=== PATIENT | female | born 1940 | race Caucasian/White ===

== ENCOUNTER → 2023-10-02 14:03 | Outpatient (REF) | payer MEDICARE, SELFPAY | LOC: WDC 14:03 | PROVIDERS: ATTENDING PHYSICIAN Internal Medicine Geriatric Medicine | DX: Z12.31 Encounter for screening mammogram for malignant neoplasm of breast (principal); R92.8 Other abnormal and inconclusive findings on diagnostic imaging of breast | CPT/HCPCS: 76642; 77063; 77067 ==

== ENCOUNTER → 2023-10-22 11:15 | Outpatient (REF) | payer OTHER, SELFPAY ==
[2023-10-22 15:50] LABS: ALT (SGPT) 25 U/L (0-35); AST (SGOT) 30 U/L (14-36); Albumin 3.7 g/dl (3.5-5.0); Alkaline Phosphatase 78 U/L (38-126); Total Bilirubin 0.6 mg/dl (0.2-1.3); Total Protein 6.4 g/dl (6.3-8.2)
== END ==
LOC: HWRAD 11:15
PROVIDERS: ATTENDING PHYSICIAN Internal Medicine Critical Care Medicine; FAMILY PHYSICIAN Internal Medicine Geriatric Medicine
DX: R91.1 Solitary pulmonary nodule (principal)
CPT/HCPCS: 36415; 71250; 80076

== ENCOUNTER → 2023-11-05 09:46 | Outpatient (REF) | payer OTHER, SELFPAY ==
[2023-11-05 13:43] LABS: Blood Urea Nitrogen 14 mg/dl (7-17); Calcium 9.3 mg/dl (8.4-10.2); Carbon Dioxide 29 mmol/L (22-30); Chloride 106 mmol/L (98-107); Glucose 88 mg/dl (70-99); Potassium 4.1 mmol/L (3.5-5.1); Sodium 139 mmol/L (135-145); eGFR > 60.00
== END ==
LOC: HWLAB 09:46
PROVIDERS: ATTENDING PHYSICIAN Internal Medicine; FAMILY PHYSICIAN Internal Medicine Geriatric Medicine
DX: R19.5 Other fecal abnormalities (principal); R19.04 Left lower quadrant abdominal swelling, mass and lump
CPT/HCPCS: 36415; 80048

== ENCOUNTER → 2023-11-19 11:18 | Outpatient (REF) | payer OTHER, SELFPAY | LOC: HWRAD 11:18 | PROVIDERS: ATTENDING PHYSICIAN Internal Medicine; FAMILY PHYSICIAN Internal Medicine Geriatric Medicine | DX: R19.5 Other fecal abnormalities (principal) | CPT/HCPCS: 74177; Q9967 ==

== ENCOUNTER → 2024-03-13 13:48 | Outpatient (REF) | payer MEDICARE, SELFPAY | LOC: WDC 13:48 | PROVIDERS: ATTENDING PHYSICIAN Internal Medicine Geriatric Medicine | DX: R92.8 Other abnormal and inconclusive findings on diagnostic imaging of breast (principal) | CPT/HCPCS: 76642 ==

== ENCOUNTER → 2024-04-21 12:55 | Outpatient (REF) | payer OTHER, SELFPAY | LOC: HWRCS 12:55 | PROVIDERS: ATTENDING PHYSICIAN Internal Medicine Geriatric Medicine | DX: I35.0 Nonrheumatic aortic (valve) stenosis (principal) | CPT/HCPCS: 93306 ==

== ENCOUNTER → 2024-10-17 14:51 | Outpatient (REF) | payer MEDICARE, SELFPAY | LOC: WDC 14:51 | PROVIDERS: ATTENDING PHYSICIAN Internal Medicine | DX: Z12.31 Encounter for screening mammogram for malignant neoplasm of breast (principal) | CPT/HCPCS: 77063; 77067 ==

== ENCOUNTER → 2025-02-22 06:53 | Outpatient (REF) | payer MEDICARE, SELFPAY | LOC: PAVMRI 06:53 | PROVIDERS: ATTENDING PHYSICIAN Internal Medicine Rheumatology; FAMILY PHYSICIAN Internal Medicine | DX: M54.16 Radiculopathy, lumbar region (principal); M54.50 Low back pain, unspecified | CPT/HCPCS: 72148 ==

== ENCOUNTER 2025-04-08 06:21 | Day surgery (SDC) | payer MEDICARE, SELFPAY | END 2025-04-08 09:27 | disposition home or self-care (01) | LOC: GI 06:21 | PROVIDERS: ATTENDING PHYSICIAN Surgery | DX: K57.30 Diverticulosis of large intestine without perforation or abscess without bleeding (principal); K56.699 Other intestinal obstruction unspecified as to partial versus complete obstruction; R93.3 Abnormal findings on diagnostic imaging of other parts of digestive tract | CPT/HCPCS: 45378 ==

== ENCOUNTER 2025-04-09 19:26 | Inpatient (IN) | payer OTHER, SELFPAY ==
[2025-04-09] VITALS (7 sets, daily range): BP systolic 132–168; BP diastolic 55–93; BMI 24.0
[2025-04-09] MEDS: NSS 1000 IV ×2 (15:29→19:09)
[2025-04-09] MEDS: IMODIUM 2 MG PO (15:34)
[2025-04-09 15:50] LABS: Hematocrit 38.1 % (37.0-47.0); Hemoglobin 12.6 g/dL (12.0-16.0); Mean Corp Hgb Conc. 33.1 g/dL (33.0-37.0); Mean Corpuscular Volume 87.0 fL (81.0-99.0); Nucleated Red Blood Cells % 0 %; Platelet Count 167 10^3/uL (130-400); Red Cell Dist. Width 14.1 % (11.5-14.5)
--- NOTE | 2025-04-09 15:55 | ED.GENMED ---
History of Present Illness
General
Chief Complaint: Abdominal Symptoms
Source: patient, records, physician and previous hospital records
Exam Limitations: none
Time Seen by Provider: 04/09/25 15:04
Nursing documentation reviewed up to this point in time: agreed with
History of Present Illness
History of Present Illness:
84-year-old female presents with crampy abdominal pain and diarrhea she underwent a colonoscopy yesterday by Dr. Lares apparently she had an MRI of her back that showed an abnormality in her colon--- since this study she has had crampy pain with
diarrhea not eating and drinking much, no fevers no blood, in discussing the case with Dr. Lares no biopsies were taken he was not able to pass the lesion, even with a smaller scope, he requested a CAT scan with IV contrast labs and EKG
Past History
Past History
ED Past Medical History: HTN, Hypercholesterolemia and Other (L Breast CA)
Social History
Tobacco: Former smoker
Living: alone
Employment: Retired
Review of Systems
Review of Systems
All Other Systems: Not applicable
Constitutional: Denies fever or fatigue
EENT: Reports no symptoms
Respiratory: Reports no symptoms
Cardiac: Denies chest pain
ABD/GI: Reports abdominal pain, nausea and diarrhea; Denies vomiting, bloody stools or black stools
: Reports no symptoms
Musculoskeletal: Reports no symptoms
Skin: Reports no symptoms
Phy Exam
Physical Exam
Physical Exam:
Physical Exam
General: no apparent distress, not acutely ill
Neck: Dry lips
Heart: s1/s2 regular rate and rhythm, no murmur. equal radial pulses.
Lungs: no acute respiratory distress. clear bilaterally
Abdomen: Soft nontender
Neuro: alert and oriented. no focal neurological deficits
Skin: no rash
Psychiatric: well kept. interactive and cooperative
Extremities: no edema.
Course
Orders/Labs/Results
Orders:
Orders
04/09/25 15:19
0.9% Sodium Chloride 1000 ml [Nss] 1,000 ml IV BOLUS
Loperamide [Imodium] 2 mg PO NOW STA
04/09/25 15:28
Complete Blood Count/With Diff Urgent
Comprehensive Metabolic Panel Urgent
Magnesium Urgent
04/09/25 15:36
Electrocardiogram (*1) Urgent
Reason for Study: Abdominal Pain
EKG- Treatment ONCE
04/09/25 15:37
CT Abd/pelvis W Iv Cont Urgent
Comment:
Reason For Exam: pain mass/stricture on scope
04/09/25 16:41
Troponin I Urgent
04/09/25 18:01
Norovirus by PCR Urgent
JAZZMINE Source: Feces/Stool
Specimen Description:
STOOL [C difficile Antigen & Toxins] Urgent
JAZZMINE Source: Feces/Stool
Specimen Description:
Stool Culture Urgent
JAZZMINE Source: Feces/Stool
Specimen Description:
Abnormal Lab Results
04/09/25
15:28
Absolute Neuts (auto) 7.9 H 10^3/uL
(1.4-6.5)
Absolute Lymphs (auto) 1.0 L 10^3/uL
(1.2-3.4)
Neutrophils % 82.8 H %
(42.2-75.2)
Lymphocytes % 10.3 L %
(20.5-51.1)
Potassium 3.4 L mmol/L
(3.5-5.1)
BUN 27 H mg/dl
(7-17)
Total Protein 6.2 L g/dl
(6.3-8.2)
04/09/25 15:28
04/09/25 15:28
Vital Signs
Initial and Last Documented VS:
Initial Vital Signs
Temp Pulse Resp BP Pulse Ox
98.5 F 91 16 132/82 97
04/09/25 14:45 04/09/25 14:45 04/09/25 14:45 04/09/25 14:45 04/09/25 14:45
Last Documented Vital Signs
Temp Pulse Resp BP Pulse Ox
98.5 F 87 18 135/55 95
04/09/25 14:45 04/09/25 16:45 04/09/25 18:09 04/09/25 16:17 04/09/25 16:18
MDM/Problems Addressed
Differential Diagnosis Includes:
Dehydration postprocedural pain his symptoms related to the procedure
MDM/Problems Addressed:
Diarrhea cramps
Chronic conditions affecting care:
Stricture
Acute Exacerbation and/or Progression of Chronic Illness:
Stricture
*Radiology
Radiology exam reviewed: radiology read reviewed
*Pulse Oximetry
SaO2: 97
Oxygen Mode of Delivery: Room air
Patient hypoxic: no
*Critical Care Note
Total Time (30-74mins, 75-104mins- exclusive of procedures): Not Applicable
Update Note
Update Note:
6 PM, update CT noted labs noted patient still with some minimal pain has not tolerated a diet since her procedure reviewed with patient surgery, shared decision making we will keep her in the hospital hydration serial exams advance her diet
ED Attending Note
-
Portions of this chart may have been created with voice recognition software.� Occasional wrong word or��sound alike� substitutions may have occurred due to the inherent limitations of voice recognition software.
Discharge Plan
Departure
Patient Disposition: Admit
Date of Disposition: 04/09/25
Time of Disposition: 18:11
Admit to: Med/Surg
Presentation/result/management discussed w/ accepting MD/DO: Hospitalist
Patient with high blood pressure during this ER visit?: No
Condition: Good
Discharge Problem:
Dehydration
Prescriptions:
No Action
Albuterol Nebs
1 vial IH DAILY
azelastine 1 SPRAY aerosol,spray
2 spray intranasal DAILY
Patient Comments:
after nasal rinse
albuterol sulfate 1 PUFF HFA aerosol inhaler
2 puff inhalation PRN PRN (Reason: sob)
fluticasone propionate 1 SPRAY spray,suspension
2 spray intranasal DAILY
Patient Comments:
after nasal rinse
beclomethasone dipropionate [Qvar] 8.7 GM aerosol
2 puff IH BID
fenofibrate nanocrystallized 145 MG tablet
145 mg PO DAILY
amlodipine-valsartan [Exforge] 1 EACH tablet
1 tab PO DAILY
Patient Comments:
10mg/320mg
sod [id number] bottle [Neilmed Sinus Rinse Complete] 1 EACH packet with rinse device
1 pkg inhalation .DAILY AT 1600
Zyrtec:
1 tab PO PRN PRN (Reason: ALLERGY)
famotidine [Pepcid AC] 10 MG tablet
10 mg PO QPM
magnesium oxide 500 MG tablet
500 mg PO QPM
letrozole 2.5 MG tablet
2.5 mg PO QPM
cholecalciferol (vitamin D3) [Vitamin D3] 1,000 UNIT capsule
1,000 unit PO DAILY
Patient Comments:
with calcium
Levothyroxine
0.1 mg PO DAILY
ketoconazole 1 APPLIC cream
topical BID
Patient Comments:
under abdominal fold
Probiotic (Align)
DAILY
acetaminophen 325 MG tablet
650 mg PO Q4HPRN PRN (Reason: pain) Qty: 0 0RF
aspirin 325 MG tablet,delayed release (DR/EC)
325 mg PO DAILY Qty: 0 0RF
docusate sodium 100 MG capsule
100 mg PO BID Qty: 0 0RF
oxycodone 5 MG tablet
5 mg PO Q4HPRN PRN (Reason: moderare to severe pain) Qty: 60 0RF
Rx Instructions:
1 to 2 tabs every 4 hrs as needed
Referrals:
Mallory Medeiros DO [Family Provider, Internal Medicine]
Interventions
Interventions:
*Risk Screen - Suicide Last Done: 04/09/25 14:46
*Neglect/Abuse Screening Last Done: 04/09/25 14:46
*ED- Fall Risk Assessment Last Done: 04/09/25 15:55
*ED COVID-19 Vaccine History Last Done: 04/09/25 18:09
AG-Bzuldc-Jmwgtikugv Assessment Last Done: 04/09/25 15:50
Discharge Date and Time
Print Language: FRENCH
[2025-04-09 16:02] LABS: ALT (SGPT) 27 U/L (0-35); AST (SGOT) 25 U/L (14-36); Albumin 3.9 g/dl (3.5-5.0); Alkaline Phosphatase 73 U/L (38-126); Blood Urea Nitrogen 27 mg/dl (7-17); Calcium 8.5 mg/dl (8.4-10.2); Carbon Dioxide 24 mmol/L (22-30); Chloride 106 mmol/L (98-107); Glucose 94 mg/dl (70-99); Magnesium 2.0 mg/dl (1.6-2.3); Potassium 3.4 mmol/L (3.5-5.1); Sodium 137 mmol/L (135-145); Total Protein 6.2 g/dl (6.3-8.2); eGFR > 60.00
[2025-04-09 17:14] LABS: Troponin I < 0.012 ng/ml
--- NOTE | 2025-04-09 18:10 | HPS.HSE ---
Family Physician
-
Family Physician: Mallory Medeiros
Chief Complaint
-
Diarrhea post colonoscopy
History of Present Illness
84-year-old female sent by Dr. Lares sent for abdominal cramping with diarrhea since yesterday after undergoing a colonoscopy for abnormality on MRI in her colon. On colonoscopy she was noted to have severe stenosis unknown length found in the
sigmoid colon at 30 cm from the verge colorectal was unable to pass the scope through to obtain biopsy. She also had moderate stool in the rectosigmoid colon on colonoscopy yesterday 04/08/2025. She denies fever, chills, chest pain, palpitations,
cough, shortness of breath, abdominal pain, nausea, vomiting, urinary symptoms.
She has past medical history osteoarthritis, hypothyroidism,, HTN, Diverticulitis Hx, osteoarthritis on chronic oral opiates, Osteoporosis, Spondylosis lumbar sacral spine
COPD on chronic 2 L nasal cannula at night and with walking, Idiopathic pulmonary fibrosis, Mild cognitive impairment, Nonrheumatic aortic valve stenosis
Depression, Balance disorder, Chronic bilateral lower extremity edema, GERD HLD, History of left-sided breast cancer 2022 was on former letrozole, Overactive bladder
Medical History
Past Medical History
Past Medical History: Reports Other
Additional Past Medical History:
Diverticulitis Hx
osteoarthritis on chronic oral opiates
Osteoporosis
Spondylosis lumbar sacral spine
hypothyroidism
HTN
COPD on chronic 2 L nasal cannula
Idiopathic pulmonary fibrosis
Mild cognitive impairment
Nonrheumatic aortic valve stenosis
Depression
Balance disorder
Chronic bilateral lower extremity edema
GERD
HLD
History of left-sided breast cancer 2022 was on former letrozole
Overactive bladder
Past Surgical History: Reports Other
Additional Past Surgical History:
Cholecystectomy
Hysterectomy
Carpal tunnel repair
Cataract extraction bilateral
tonsillectomy
Left total hip replacement 03/25/2015
Social History
Tobacco: Former Smoker (Quit age 33)
Alcohol: None
Drug: None
Personal: Single
Living: Alone
Employment: Retired
Family History
Family History: Not pertinent
Allergies / Home Medications
Allergies reflects when Allergies were last updated in [employer].
Home Medications with original date entered in [employer]
Allergy/Medication List:
Allergies
Allergy/AdvReac Type Severity Reaction Status Date / Time
gage Allergy ROSES-Seasonal' Verified 04/09/25 18:49
watery
eyes,sore
throat,
sneezing ,
itching.
grass pollen Allergy Seasonal' Verified 04/09/25 18:49
watery
eyes,sore
throat,
sneezing ,
itching.
house dust Allergy Seasonal' Verified 04/09/25 18:49
watery
eyes,sore
throat,
sneezing ,
itching.
mold Allergy Seasonal' Verified 04/09/25 18:49
watery
eyes,sore
throat,
sneezing ,
itching.
tree and shrub pollen Allergy Seasonal' Verified 04/09/25 18:49
watery
eyes,sore
throat,
sneezing ,
itching.
Home Medications
Zyrtec: 10 mg PO DAILY AT 0700 11/23/14
albuterol sulfate 90 mcg/actuation aerosol inhaler 2 puff inhalation PRN PRN sob 11/23/14
amlodipine 10 mg-valsartan 320 mg tablet (Exforge) 1 tab PO DAILY 11/23/14
fluticasone propionate 50 mcg/actuation nasal spray,suspension 2 spray intranasal DAILY 11/23/14
cholecalciferol (vitamin D3) 25 mcg (1,000 unit) capsule (Vitamin D3) 1,000 unit PO DAILY 02/24/15
acetaminophen 325 mg tablet 650 mg (2 x 325 mg) PO Q4HPRN PRN pain ##0 03/28/15
Advair Diskus 1 inh inhalation BID AT 0800,1600 04/09/25
levothyroxine 100 mcg tablet 100 mcg PO DAILY 04/09/25
oxycodone 5 mg tablet 5 mg PO BIDPRN PRN mod pain 04/09/25
Review of Systems
-
History Source: Patient
A 12 point ROS was completed and negative except as noted: Yes
Constitutional: Denies Fever or Fatigue
EENT: Denies Sore Throat or Runny Nose
Respiratory: Denies Cough or Trouble Breathing
Cardiac: Denies Chest Pain, Diaphoresis, Palpitations or Syncope
Abdomen/GI: Reports Diarrhea and Other (Decreased appetite); Denies Abdominal Pain, Nausea or Vomiting
: Denies Dysuria, Frequency, Flank Pain, Incontinence or Difficulty Voiding
Musculoskeletal: Denies Joint Pain or Edema
Skin: Denies Itching or Rash
Neurological: Denies Dizzy, Headache or Weakness
Endocrine: Reports No Symptoms
Hematologic/Lymphatic: Reports No Symptoms
Psych: Reports Calm
Physical Exam
Vital Signs
Vital Signs
Temp Pulse Resp BP Pulse Ox
98.5 F 87 18 135/55 95
04/09/25 14:45 04/09/25 16:45 04/09/25 18:09 04/09/25 16:17 04/09/25 16:18
Physical Exam
General: No Apparent Distress, Comfortable and Conversant; No Fever or Chills
HEENT: NormoCephalic, Anicteric, Moist mucous membranes, PERRLA, [place] Conjunctivae and No Ptosis
Respiratory: Clear; No Wheezes, Rales or Rhonchi
Cardiac: S1/S2, Regular Rhythm and Murmur (2/6 systolic); No Rub or Gallop
Breast: Deferred by me
GI: Soft, Non Tender, Non Distended and Normal Bowel Sounds
Rectal: Deferred by Provider
Genito-urinary: Deferred by me
Musculoskeletal: No Clubbing, No Cyanosis and No Edema
Skin: Warm and Dry; No Rash
Neuro: AO x 3 (Slightly forgetful short-term memory), No Motor Deficits, Nonfocal/grossly intact, Cranial Nerves Intact and No Sensory Deficits; No Slurred Speech, Facial Droop, Tremors or Sedated
Psych: Calm
Laboratory Results
-
04/09/25 15:28
04/09/25 15:28
Laboratory Results
Total Bilirubin 0.8 mg/dl (0.2-1.3) 04/09/25 15:28
AST 25 U/L (14-36) 04/09/25 15:28
ALT 27 U/L (0-35) 04/09/25 15:28
Alkaline Phosphatase 73 U/L (38-126) 04/09/25 15:28
Troponin I < 0.012 ng/ml 04/09/25 16:41
Data Reviewed
-
CT Scan: Report Reviewed by me
Lab Data: Labs Reviewed by me
Impression/Plan
-
Impression/plan:
Admit to MedSurg
#Acute diarrheal illness with volume depletion likely secondary to Sigmoid colon stricture causing SBO
#Severe stenosis sigmoid colon on colonoscopy yesterday 04/08/2025
#Moderate stool rectosigmoid colon on colonoscopy yesterday 04/08/2025
- Clear liquids tonight
- N.p.o. after midnight for possible OR sigmoid resection in a.m.
- Consult Dr. Lares
-Check stool studies
- IV NSS 60 cc an hour
Colonoscopy 04/08/2025:
- The perianal and digital rectal examinations were normal.
- A moderate amount of stool was found in the recto-sigmoid colon
at a site of previous tattooing, interfering with visualization.
- Scattered small-mouthed diverticula were found in the sigmoid
colon.
- A benign-appearing, intrinsic severe stenosis measuring of unknown
length was found in the sigmoid colon at 30 cm from verge and was
non-traversed.
CT abdomen pelvis with IV contrast:
1. wall thickening involving the proximal sigmoid colon which may be related to reported mass/stricture.
2. There is fluid present throughout the colon as well as mild distention of the cecum/ascending colon.
Findings may represent an element of diarrheal illness/malabsorption although partial distal small bowel obstruction related to the
above-described sigmoid colon abnormality is possible.
#Acute hypokalemia secondary to diarrheal losses
K 3.4
Will give K rider 20 mEq
Follow BMP
#Diverticulitis Hx
Osteoarthritis on chronic Oral opiates
-Continue oxycodone 5 mg twice daily
#Osteoporosis
Spondylosis lumbar sacral spine
-Patient is on Prolia every 6 months
-Continue vitamin D
#Hypothyroidism
-Continue levothyroxine 100 mcg daily
# HTN
166/
Continue amlodipine 10 mg daily, valsartan 320 mg daily with hold parameters
#COPD on chronic 2 L nasal cannula at bedtime and with ambulation
#Former smoker quit age 33
#Idiopathic pulmonary fibrosis
-Continue inhalers, continue Singulair
#Chronic mild cognitive impairment
Oriented to name, place, president, history is somewhat forgetful short-term
#Nonrheumatic aortic valve stenosis
#Depression
No reported meds
#Balance disorder
#Chronic bilateral lower extremity edema
#GERD
- Reported meds
#HLD
- No current meds
#History of left-sided breast cancer 2022 was on former letrozole
#Overactive bladder
DVT prophylaxis
SCDs
Full code
--- NOTE | 2025-04-09 18:46 | W.PN.UPDATE ---
Update Note
Progress Note Update
This is an addendum to the H&P written by Keke Stanford on 04/09/2025. �Patient seen and examined independently with CHIEF OPHTHALMIC TECHNICIAN.
84-year-old female past medical history of idiopathic pulmonary fibrosis, COPD on 2L with ambulation/night, hypertension, hypothyroidism, osteopenia, breast cancer postlumpectomy, osteoarthritis, presenting with crampy abdominal pain and diarrhea
after colonoscopy yesterday. �She underwent colonoscopy yesterday by Dr. Lares. �Patient had severe stenosis/stricture in the sigmoid colon which could not be transversed.
Vital signs normal.
Labs unremarkable apart from potassium 3.4.�
CT abdomen pelvis shows apparent wall thickening involving the proximal sigmoid colon which may be related to reported mass/stricture. �There is fluid present throughout the colon as well as mild distention of the cecum/ascending colon. �Findings
represent element of diarrheal illness/malabsorption although marginal distal small bowel obstruction related to the above sigmoid colon abnormalities is possible.
Patient with diarrhea after colonoscopy yesterday likely secondary to bowel prep given for colonoscopy. �Concern for underlying sigmoid colon stricture noted on colonoscopy yesterday as well as on CAT scan today. �Clear liquids, n.p.o. pastmidnight,
IV fluids, check stool studies. �Colorectal surgery consulted for consideration of possible sigmoid resection.
Hypokalemia secondary to diarrhea. Replete potassium.�
[2025-04-09] MEDS: KCL 160 MEQ IV (19:09)
[2025-04-10] VITALS (10 sets, daily range): BP systolic 132–165; BP diastolic 60–76; PULSE 88; O2SAT 97
[2025-04-10] MEDS: ZYRTEC 10 MG PO (06:11)
[2025-04-10] MEDS: SYNTHROID 100 MCG PO (06:11)
[2025-04-10] MEDS: NON-FORMULARY ITEM 1 UNIT INH (08:07)
--- NOTE | 2025-04-10 08:11 | PTCARENOTE ---
Pt arrived to unit from ED on stretcher at 2124. Pt ambulated to bathroom without assist and then to bed-gait steady. Pt reports using 2L NC for ambulation and HS d/t COPD & ILD-patient placed on 2L. Pt reports using cane & RW at baseline for long
distances, does not use devices in room. Pt AAOx3. Patient has a living will & wishes to be DNR, living will not in [employer] record & does not have family who can bring it in, pt advised to speak with physician to clarify wishes. Pt having loose &
watery [id number] on enhanced precautions, unable to obtain specimen overnight due to contamination. Pt reported pain in abdomen upon arrival, reported pain '3 out of 10'; declined analgesia at that time, continues to decline analgesia. Call
wright within reach, bed in lowest position and locked, pt states no further needs at this time.
[2025-04-10] MEDS: VITAMIN D3 (cholecalciferol) 25 MCG PO (08:22)
[2025-04-10] MEDS: DIOVAN PO (08:23)
[2025-04-10] MEDS: NON-FORMULARY ITEM 1 UNIT PO (08:23)
[2025-04-10] MEDS: NORVASC PO (08:23)
[2025-04-10 08:55] LABS: ALT (SGPT) 24 U/L (0-35); AST (SGOT) 25 U/L (14-36); Albumin 3.8 g/dl (3.5-5.0); Alkaline Phosphatase 77 U/L (38-126); Blood Urea Nitrogen 17 mg/dl (7-17); Calcium 7.8 mg/dl (8.4-10.2); Carbon Dioxide 23 mmol/L (22-30); Chloride 108 mmol/L (98-107); Estimated Creatinine Clearance 58 ml/min; Glucose 61 mg/dl (70-99); Potassium 3.3 mmol/L (3.5-5.1); Sodium 139 mmol/L (135-145); Total Protein 6.2 g/dl (6.3-8.2); eGFR > 60.00
--- NOTE | 2025-04-10 09:05 | CON.CRS ---
Consultation
-
Date/Time Consultation Requested: 04/09/2025, 18:43
Date/Time Consultation Performed: 04/10/2025, 08:25
Requesting Provider: Keke Stanford
Performing Provider: Amos Lares MD
Reason for Consultation: loose stools/cramping
Medical History
-
Chief Complaint: diarrhea/cramping
History of Present Illness:
84 yo female, with a history of pulmonary fibrosis, presents to the ER s/p colonoscopy by Dr. Lares on 04/08/25 with abdominal pain and diarrhea. The patient originally had an abnormal finding on an outpatient MRI which showed a 4.8cm thickening of
the colon. She apparently has had bowel issues over the years and has to massage her abdomen to have a bowel movement. The colonoscopy on 04/08 showed preparation of the colon was poor. Stool in the recto-sigmoid colon. Diverticulosis in the sigmoid
colon There was severe stenosis unknown length found in the sigmoid colon at 30 cm from the verge colorectal was unable to pass the scope through to obtain biopsy.. Stricture in the sigmoid colon. No specimens collected. After the colonoscopy, the
patient developed worsening abdominal cramping and loose stools. She was sent to the ER by Dr. Lares yesterday given these symptoms. CT A/P shows apparent wall thickening involving the proximal sigmoid colon which may be related to reported
mass/stricture. There is fluid present throughout the colon as well as mild distention of the cecum/ascending colon. Findings may represent an element of diarrheal illness/malabsorption although partial distal small bowel obstruction related to the
above-described sigmoid colon abnormality is possible. Given these findings, we have been consulted for surgical opinion.
Past Medical History
Past Medical History: Cancer (breast ca history), GERD, HTN, Hypercholesterolemia, Hypothyroidism and Other (Diverticulitis, osteoarthritis, osteoporosis, Idiopathic pulmonary fibrosis, Mild cognitive impairment, Nonrheumatic aortic valve stenosis,
Overactive bladder)
Past Surgical History: Cholecystectomy, Gynecological (hysterectomy) and Other (Carpal tunnel repair, Cataract extraction, bilateral tonsillectomy, Left total hip replacement 03/25/2015)
Social History
Tobacco: Former Smoker
Alcohol: None
Drug: None
Personal: Single
Living: Alone
Family History
Family History: Reviewed & Not Pertinent
Allergies / Home Medications
Allergy/AdvReac Type Severity Reaction Status Date / Time
gage Allergy ROSES-Seasonal' Verified 04/09/25 18:49
watery
eyes,sore
throat,
sneezing ,
itching.
grass pollen Allergy Seasonal' Verified 04/09/25 18:49
watery
eyes,sore
throat,
sneezing ,
itching.
house dust Allergy Seasonal' Verified 04/09/25 18:49
watery
eyes,sore
throat,
sneezing ,
itching.
mold Allergy Seasonal' Verified 04/09/25 18:49
watery
eyes,sore
throat,
sneezing ,
itching.
tree and shrub pollen Allergy Seasonal' Verified 04/09/25 18:49
watery
eyes,sore
throat,
sneezing ,
itching.
�Medication �Instructions �Recorded �Confirmed �Type
Zyrtec: 10 mg PO DAILY AT 0700 11/23/14 03/25/15 History
albuterol sulfate 90 mcg/actuation 2 puff inhalation PRN PRN sob 11/23/14 04/09/25 History
aerosol inhaler
amlodipine 10 mg-valsartan 320 mg 1 tab PO DAILY 11/23/14 04/09/25 History
tablet (Exforge)
fluticasone propionate 50 2 spray intranasal DAILY 11/23/14 04/09/25 History
mcg/actuation nasal
spray,suspension
cholecalciferol (vitamin D3) 25 1,000 unit PO DAILY 02/24/15 04/09/25 History
mcg (1,000 unit) capsule (Vitamin
D3)
acetaminophen 325 mg tablet 650 mg (2 x 325 mg) PO Q4HPRN PRN 03/28/15 04/09/25 Rx
pain ##0
Advair Diskus 1 inh inhalation BID AT 0800,1600 04/09/25 04/09/25 History
levothyroxine 100 mcg tablet 100 mcg PO DAILY 04/09/25 04/09/25 History
oxycodone 5 mg tablet 5 mg PO BIDPRN PRN mod pain 04/09/25 04/09/25 History
Review of Systems
-
History Source: Patient
Abdomen/GI: Abdominal Pain and Diarrhea
A 10 point review of systems was completed, and was negative except as per HPI.
Physical Exam
Vital Signs
Temp 97.7 F 04/10/25 07:00
Pulse 52 04/10/25 07:00
Resp Rate 16 04/10/25 08:12
Blood pressure 132/70 04/10/25 07:00
SaO2 100 04/10/25 08:12
04/09/25 04/10/25 04/11/25
06:59 06:59 06:59
Actual Weight 63.458 kg
Body Mass Index (BMI) 24.0
Lab Results / Allergies
04/10/25 07:15
WBC 9.5 10^3/uL (4.8-10.8) 04/09/25 15:28
Hgb 12.6 g/dL (12.0-16.0) 04/09/25 15:28
Hct 38.1 % (37.0-47.0) 04/09/25 15:28
Plt Count 167 10^3/uL (130-400) 04/09/25 15:28
Abs Immat Gran (auto) 0.0 10^3/uL (0-0.05) 04/09/25 15:28
Neutrophils % 82.8 % (42.2-75.2) H 04/09/25 15:28
Allergy/AdvReac Type Severity Reaction Status Date / Time
gage Allergy ROSES-Seasonal' Verified 04/09/25 18:49
watery
eyes,sore
throat,
sneezing ,
itching.
grass pollen Allergy Seasonal' Verified 04/09/25 18:49
watery
eyes,sore
throat,
sneezing ,
itching.
house dust Allergy Seasonal' Verified 04/09/25 18:49
watery
eyes,sore
throat,
sneezing ,
itching.
mold Allergy Seasonal' Verified 04/09/25 18:49
watery
eyes,sore
throat,
sneezing ,
itching.
tree and shrub pollen Allergy Seasonal' Verified 04/09/25 18:49
watery
eyes,sore
throat,
sneezing ,
itching.
Physical Exam
General: Well Developed, Well Nourished and No Apparent Distress
GI: Soft and Tender (RLQ mild/mod)
Skin: Warm and Dry
Neuro: AO x 3
Psych: Calm
Data Reviewed
-
CT Scan: Image Personally Visualized and interpreted, Report Reviewed by me and Discussed with Patient
Labs: Labs Reviewed by me, Discussed with Physician and Discussed with Patient
Old Records: Reviewed
Assessment / Plan
-
Assessment: 84 yo female with worsening abdominal cramping/diarrhea post colonoscopy on 04/08, found to have a sigmoid stricture on CT with cecal distention
Plan:
-OR today for sigmoidectomy with possible stoma creation
-Stoma RN for marking
-Remain NPO with IVFs
-Pre-op labs and medications ordered
-TEDS/SCDS in place
-Dr. Lares discussed above with her family friend, Ms. Garcia. They will bring in her living will.
[2025-04-10 09:24] LABS: Hematocrit 42.4 % (37.0-47.0); Hemoglobin 13.7 g/dL (12.0-16.0); Mean Corp Hgb Conc. 32.3 g/dL (33.0-37.0); Mean Corpuscular Volume 87.8 fL (81.0-99.0); Nucleated Red Blood Cells % 0 %; Platelet Count 205 10^3/uL (130-400); Red Cell Dist. Width 13.9 % (11.5-14.5)
--- NOTE | 2025-04-10 09:37 | WOUNDNOTE ---
[facility] RN NOTE: Patient visited for stoma siting. Chart reviewed. The rectus abdominal muscle was located and care was taken to avoid creases and folds. Patient has many folds and patient and colorectal team made aware that pouching issues may occur
due to body habitus. Also made team aware to avoid umbilical line if placing stoma. Patient ambulatory and is on a [employer] Max Air. Air cushion added to chair and barrier ointment applied to areas of MASD in gluteal sulcus. Heels are intact.
Patient asked many appropriate questions and all questions were answered. Will continue to follow and will follow up with stoma care and teaching if stoma is placed. LYNNE Cuellar updated.
[2025-04-10 09:48] LABS: INR 1.20; PT 15.5 Sec (11.4-14.6)
[2025-04-10 09:49] LABS: APTT 30.8 Sec (23.4-35.0)
[2025-04-10] MEDS: CALCIUM GLUCONATE 100 IV (11:02)
[2025-04-10] MEDS: NSS 1000 IV (11:06)
[2025-04-10] MEDS: KCL 270 MEQ IV (12:20)
[2025-04-10] MEDS: TYLENOL 1000 MG PO (13:26)
[2025-04-10] MEDS: NEURONTIN 600 MG PO (13:26)
[2025-04-10] MEDS: HEPARIN 5000 UNITS SC (13:27)
--- NOTE | 2025-04-10 14:03 | CM ---
CM following re: discharge planning.
Reviewed pt's chart, met with pt.
Pt is a 88 year old female, admitted with primary dx of POD#1 post op from laparoscopic hand assist L nephroureterectomy with transurethral bladder cuff excision.
Pt reports she lives alone in an independent apartment at [facility], has been living there for 15 years. Pt reports she has no family around, no children, has supportive friends. Pt reports she uses a Rollator, has home Oxygen and requires
2L NC at baseline. No VN or SNF history.
Pt expressed her desire to return back to her apartment with friends support. pt stated her friend will transport home.
PCP: Ruddy Hopkins
Pharmaco: [facility]
D/C plan: return back to [facility] with friends support.
CM will follow with discharge plan updates as hospitalization progresses.
--- NOTE | 2025-04-10 14:03 | W.PN.HOSP.TC ---
Today's Communication/Plan
-
see a/p
Assessment / Plan
Assessment / Plan
Physical Exam
General: No Apparent Distress, Comfortable and Conversant; No Fever or Chills
HEENT: NormoCephalic, Anicteric, Moist mucous membranes, PERRLA, Guadalupe Guerra Conjunctivae and No Ptosis
Respiratory: Clear; No Wheezes, Rales or Rhonchi
Cardiac: S1/S2, Regular Rhythm and Murmur (2/6 systolic); No Rub or Gallop
GI: Soft, Non Tender, Non Distended and Normal Bowel Sounds
Musculoskeletal: No Clubbing, No Cyanosis and No Edema
Skin: Warm and Dry; No Rash
Neuro: AO x 3 conversant coherent
Psych: Calm
84F hx osteoarthritis, hypothyroidism, HTN, chronic pain/narcotics, Osteoporosis, COPD on chronic 2 L NC HS and ambulation, Idiopathic pulmonary fibrosis, Mild cognitive impairment, Nonrheumatic aortic valve stenosis, Depression, Chronic lower
extremity lymphedema, GERD HLD, History of left-sided breast cancer 2022, sent by Dr. Lares for abdominal cramping diarrhea after undergoing a colonoscopy for abnormality on MRI. On colonoscopy she was noted to have severe stenosis unknown length
found in the sigmoid colon at 30 cm from the verge colorectal was unable to pass the scope through to obtain biopsy. Likely chronic large bowel partial obstruction due to sigmoid stricture, planned for sigmoidectomy and stoma creation as per CRS.
#Acute diarrheal illness with volume depletion likely secondary to Sigmoid colon stricture causing SBO
#Severe stenosis sigmoid colon on colonoscopy yesterday 04/08/2025
#Moderate stool rectosigmoid colon on colonoscopy yesterday 04/08/2025
- N.p.o. for OR sigmoid resection
- Consult CRS appreciated
-stool studies neg for CDiff and norovirus
- IV NSS 60 cc an hour
Colonoscopy 04/08/2025:
- The perianal and digital rectal examinations were normal.
- A moderate amount of stool was found in the recto-sigmoid colon
at a site of previous tattooing, interfering with visualization.
- Scattered small-mouthed diverticula were found in the sigmoid
colon.
- A benign-appearing, intrinsic severe stenosis measuring of unknown
length was found in the sigmoid colon at 30 cm from verge and was
non-traversed.
CT abdomen pelvis with IV contrast:
1. wall thickening involving the proximal sigmoid colon which may be related to reported mass/stricture.
2. There is fluid present throughout the colon as well as mild distention of the cecum/ascending colon.
Findings may represent an element of diarrheal illness/malabsorption although partial distal small bowel obstruction related to the
above-described sigmoid colon abnormality is possible.
#Hypokalemia
#Hypocalcemia
monitor and replete as necessary.
#Diverticulitis Hx
Osteoarthritis on chronic Oral opiates
-Continue oxycodone 5 mg twice daily
#Osteoporosis
Spondylosis lumbar sacral spine
-Patient is on Prolia every 6 months
-Continue vitamin D
#Hypothyroidism
-Continue levothyroxine 100 mcg daily
# HTN
Continue amlodipine 10 mg daily, valsartan 320 mg daily with hold parameters
#COPD on chronic 2 L nasal cannula at bedtime and with ambulation
#Former smoker quit age 33
#Idiopathic pulmonary fibrosis
-Continue inhalers, continue Singulair
#Chronic mild cognitive impairment
Oriented to name, place, president, history is somewhat forgetful short-term
#Nonrheumatic aortic valve stenosis
#Depression
No reported meds
#Balance disorder
#Chronic bilateral lower extremity edema
#GERD
- Reported meds
#HLD
- No current meds
#History of left-sided breast cancer 2022 was on former letrozole
#Overactive bladder
DVT prophylaxis
SCDs
Full code
I spent a total of 50 minutes with the patient or on the floor. More than 50% of this time involved counseling and coordination of care.
Anticipated Discharge: 24 - 48 hours
Subjective/Interval History
-
Date of Service: April 10, 2025
No acute distress, sitting up comfortably in chair. Diarrhea persists nonbloody. AOx3 conversant coherent.
Objective Data
-
Labs:
Laboratory Results
04/10/25 04/10/25
07:15 08:54
WBC 10.6
Hgb 13.7
Hct 42.4
Plt Count 205 D
PT 15.5 H
INR 1.20
APTT 30.8
Sodium 139
Potassium 3.3 L
Chloride 108 H
Carbon Dioxide 23
BUN 17
Creatinine 0.6
Glucose 61 L
Calcium 7.8 L
Total Bilirubin 0.9
AST 25
ALT 24
Alkaline Phosphatase 77
Vital Signs:
Vital Signs
Temp Pulse Resp BP Pulse Ox
97.7 F 52 16 132/70 100
04/10/25 07:00 04/10/25 07:00 04/10/25 08:12 04/10/25 07:00 04/10/25 08:12
I&O
04/09/25 04/10/25 04/11/25
06:59 06:59 06:59
Intake Total 967 / 967
Balance 967 / 967
--- NOTE | 2025-04-10 14:31 | CM ---
CM following re: discharge planning.
Reviewed pt's chart, met with pt.
Pt is an 84 year old female, admitted with primary dx of Acute diarrheal illness with volume depletion likely secondary to Sigmoid colon stricture causing SBO
Pt reports she lives alone in an independent apartment at [facility], has been living there for 15 years. Pt reports she has no family around, no children, has supportive friends. Pt reports she uses a Rollator, has home Oxygen and requires
2L NC at baseline. No VN or SNF history.
Pt expressed her desire to return back to her apartment with friends support. Pt stated her friend will transport home.
PCP: Ruddy Hopkins
[facility]: [facility]
D/C plan: return back to [facility] with friends support.
CM will follow with discharge plan updates as hospitalization progresses.
[2025-04-10] MEDS: NON-FORMULARY ITEM INH (20:07)
--- NOTE | 2025-04-10 22:03 | W.IMMPOSTOP ---
Surgical Immed Post Op Note
-
Primary Surgeon: Anmol Duke MD
Assisting Surgeon: Amos Lares MD, with the SAMUEL Montalvo Diane Muntzer, RNFA
Pre-op Diagnosis: Diverticular sigmoid stricture
Post-op Diagnosis: Diverticular sigmoid stricture
Procedure Performed: Exploratory laparotomy, sigmoidectomy, lysis of adhesions, takedown of splenic flexure, flexible sigmoidoscopy, TAP block
Anesthesia Type: General
Specimen / Cultures: Rectosigmoid colon
Estimated Blood Loss: 100 mL
Complications: Incorrect needle count; obtained abdominal x-ray showing radiopaque object that appeared to be a needle; used fluoroscopic guidance to identify the radiopaque object, which was a clip placed from a prior surgery; repeat abdominal
x-ray showing no radiopaque objects consistent with missing needle
Operative Findings: Performed midline laparotomy; small bowel and proximal colon not significantly distended and appeared healthy; thickened and chronically inflamed sigmoid colon from the mid sigmoid to the distal descending colon; resected this
area using green loads of the contour stapler; for adequate reach, took down the splenic flexure up to the distal transverse colon; performed EEA stapled anastomosis, donuts intact, negative leak test, anastomosis intact on flexible sigmoidoscopy;
obtained hemostasis; closed fascia with 0 PDS and skin with anat; prior to cessation of anesthesia, was informed that the needle count was off by 1 needle; abdominal x-ray was taken showing a radiopaque foreign body in the right mid to upper
abdomen and radiology was concerned that this was consistent with a needle; reopened the midline and identified the radiopaque foreign body using fluoroscopic guidance; this was in the right gutter near the hepatic flexure and was a clip from a
prior surgery, likely her cholecystectomy; this was removed; a repeat abdominal x-ray showed no radiopaque foreign bodies consistent with a needle; fascia was closed with 0 PDS and skin with anat
--- NOTE | 2025-04-10 22:12 | OR.RPT ---
Operative Report
Operative Report
DATE OF OPERATION: 04/10/2025
SURGEON: Anmol Duke MD
PREOPERATIVE DIAGNOSIS: Symptomatic diverticular sigmoid stricture
POSTOPERATIVE DIAGNOSIS: Symptomatic diverticular sigmoid stricture
OPERATION: Exploratory laparotomy, lysis of adhesions, sigmoidectomy, flexible sigmoidoscopy, take-down of the splenic flexure, repair of serosal injury, TAP block
ASSISTANTS:
1. Amos Lares MD
2. SAMUEL Rodríguez
3. SAMUEL Mackey
ANESTHESIA: General
ESTIMATED BLOOD LOSS: 100 mL
FINDINGS:
1. Small bowel and proximal colon was not significantly dilated; thickened and chronically inflamed sigmoid colon from the distal descending colon to the mid sigmoid colon, densely adherent to the left pelvic sidewall
2. Transected at the distal descending and rectosigmoid junction; performed EEA stapled anastomosis, donuts intact x 2, negative leak test, anastomosis intact on flexible sigmoidoscopy
3. On final evaluation of the bowel, identified a serosal injury on the cecum, possibly due to the recent colonoscopy; repaired this with 2-0 Vicryl Lembert stitches
SPECIMENS:
1. Rectosigmoid colon
DRAINS: None
COMPLICATIONS: Incorrect needle count; abdominal x-ray showed radiopaque foreign body in the right mid to upper abdomen concerning for retained needle per radiology; identified radiopaque object using fluoroscopic guidance, which was a surgical clip
placed from a prior surgery; this was removed and repeat abdominal x-ray showed no radiopaque foreign bodies consistent with retained needle
INDICATIONS: The patient is a 84-year-old female with PMH of pulmonary fibrosis and diverticular disease who underwent colonoscopy 2 days ago and was found to have a sigmoid stricture that was unable to be traversed with a gastroscope, done by my
partner, Dr. Lares. Yesterday, the patient presented to the ED with abdominal cramping and loose stools. A CT scan was done showing significant thickening of the sigmoid colon with slight proximal distention concerning for partial large bowel
obstruction. Although the patient was having diarrhea, operative management was discussed as she was symptomatic from this stricture and would unlikely tolerate an additional bowel prep for elective surgery. After a discussion between the patient
and Dr. Lares, they agreed to proceed with surgery. Due to scheduling conflict, I was asked to perform the surgery. The operation was discussed at length with the patient, including risks, benefits and alternatives. My plan is to attempt to
resect the strictured area and evaluate for the safety of primary anastomosis versus ostomy creation. Risks described included, but are not limited to, bleeding, infection, anastomotic leak or stenosis (if anastomosis created), ureteral injury,
bowel or solid organ injury, urinary or sexual dysfunction, recurrence, risks associated with a stoma if created and anesthetic risks, including but not limited to, [place], CVA, respiratory failure, prolonged intubation. The patient understood and
agreed to proceed. The consent was signed and placed in the chart.
PROCEDURE IN DETAIL: Pre-operatively, the patient was marked by our enterostomal nurses. The patient was taken to the operating room and placed on the operating table in supine position. Sequential compression devices were placed bilaterally.
General anesthesia was induced and the patient was intubated without complication. The patient was placed in lithotomy position with both arms secured to the armboards in extended position. Longoria catheter was placed with sterile technique. The
abdomen was prepped and draped in a sterile fashion. A time-out was performed verifying the correct patient, procedure, operative site, positioning, and special equipment. Anesthesia placed an orogastric tube. Preoperative antibiotics were given.
A marking pen was used to crista out the midline.
Using a 15 blade scalpel, a midline incision was made from 2 cm above the umbilicus and extended caudally to 2 cm above the pubic symphysis. This was taken down to the level of the fascia with Bovie electrocautery and hemostasis was assured. The
linea alba was divided carefully with Bovie electrocautery. 2 Kellys were used to grasp and elevate the peritoneum, which was sharply divided with Metzenbaum scissors, ensuring no peritoneal organs were in the vicinity. There was no injury
identified upon entry. I extended the fascial incision to the length of the skin incision, taking care to avoid injury to the bladder. A large Magdi wound protector was placed. The abdomen was explored. There was no significant proximal distention
of the colon or small bowel. The length of the small bowel and visible colon appeared healthy. There was a thickened and fibrotic area of the left colon, extending from the distal descending colon to the mid sigmoid colon. The mid sigmoid colon
was densely adherent to the left pelvic sidewall. The Bookwalter was set up with 4 points of retractions. The patient was placed in Trendelenburg position with the left side tilted up. The small bowel was then swept out of the pelvis. There was
an adhesion from the pelvis to the terminal ileum, which I lysed meticulously. I identified the right ureter confirmed by vermiculation and kept this safe from my dissection. With the sigmoid colon adequately exposed, I began by mobilizing it in a
lateral to medial fashion.
This part of the dissection was difficult due to the density of the adhesions and the obliteration of the normal planes. I took down the white line of Toldt up to the mid descending colon and mobilized the mesentery from the retroperitoneum. I
meticulously took down the dense adhesions from the mid sigmoid colon to the left pelvic sidewall. I identified the left gonadal artery and meticulously dissected this from the inflammatory mass. I identified the left ureter and left iliac
vessels. I kept these safe from my dissection as well. I took my dissection down into the pelvis bilaterally. I entered the posteriorly by incising the peritoneum over the sacral promontory and entered into the presacral space. I mobilized the
rectosigmoid colon into the pelvis about 2 to 3 cm proximal to the anterior pelvic reflection. I performed a flexible sigmoidoscopy. There was copious liquid stool in the rectum, which was easily irrigated and suctioned. After this maneuver,
visualization was excellent. I advanced to the sigmoidoscope up to the distal sigmoid and the mucosa appeared healthy. I slowly withdrew and the remainder of the mucosa appeared healthy. There was a polyp in the distal sigmoid colon, which would
be included in my specimen and therefore was left in place. The sigmoidoscope was removed. I passed an EEA sizer, which easily passed up to 15 cm. I selected a point just distal to the rectosigmoid junction and created a hole at the mesenteric
border. I divided the mesentery with the Voyant Ligasure and transected with the green load of the contour stapler.
I continued my colon mobilization proximally up to the splenic flexure. Due to the extent of the thickening of the sigmoid, it became apparent that I would need to take down the splenic flexure for reach. I contemplated creating a colostomy.
However, the patient currently did not have any concerning risk factors for anastomotic leak, such as recent steroid use, malnutrition, immunosuppression or hemodynamic instability. Therefore, I elected to proceed with anastomosis.
I took down the splenic flexure in a lateral to medial approach. I extended my midline incision superiorly in order to accomplish this. I continued my mobilization proximally around the splenic flexure, taking care to avoid injury to the spleen or
distal pancreas. When I reached the most proximal extent, I elevated the omentum and divided the gastrocolic ligament at the distal transverse colon. I easily entered the lesser sac, confirmed by visualizing the posterior wall of the stomach. I
continued this dissection distally and connected it to my lateral dissection. At this point, the entire splenic flexure was mobilized. There was now plenty of reach from my proposed proximal transection point to the rectum. I created a hole in
the mesenteric border at the distal descending colon on healthy bowel. I divided at this point with a green load of the contour stapler. I divided the mesentery with the Voyant Ligasure. I identified the KRISTEL and left colic, which I divided with
the Voyant Ligasure. I checked the stumps and they were hemostatic. I identified the IMV. However, my reach was plenty adequate and therefore, the IMV was left in place. I excised the staple line on the descending colon. I placed a pursestring
stitch in a running Glen fashion with 2-0 Prolene. I placed the anvil within the colon and tied down the Prolene. I cleaned the anvil staple line from intervening mesentery and the anvil was seated nicely.
Dr. Lares joined the case. I checked for hemostasis, which was assured. Dr. Lares passed up the EEA sizers to confirm adequate diameter and mobilization. When he passed the EEA stapler up the rectum, I was unable to seat the end of the stapler
on the staple line without directing the post directly into the sacral promontory. Therefore, he removed the EEA stapler and I mobilized the rectal stump posteriorly. After this, the EEA stapler was passed up the rectum and was seated nicely at
the rectal staple line. The post was extended. After confirming appropriate orientation of the mesentery, the anvil was mated. The EEA stapler was closed for 1 minute, fired and carefully removed. The donuts were intact x 2. Dr. Lares
performed flexible sigmoidoscopy. The pelvis was filled with saline and a leak test was negative. On sigmoidoscopy, the anastomosis appeared intact circumferentially without bleeding. The sigmoidoscope was removed.
The abdomen was explored and hemostasis was confirmed. On evaluating the bowel, I identified a serosal rent along the cecum. I had not done any dissection on the right aspect of the colon. Therefore, I suspected that this serosal rent may have
been related to insufflation during the colonoscopy. The serosal injury was about 3 cm in length. I repaired this using interrupted 3-0 Vicryl imbricating stitches. Local used was 60 milliliters of 0.25% Marcaine with epinephrine and 0.6 mg of
Decadron. I performed transversus abdominis plane block. I elevated the abdominal wall and injected 15 mL at 3 points along the lateral abdominal wall in the transversus abdominis plane. I did this bilaterally. I closed the fascia with 0 PDS,
starting at the corners and meeting in the middle. I placed Seprafilm under the incision. I irrigated the subcutaneous tissue. Hemostasis was assured. I closed the skin with anat.
At this point, I was informed that my needle count was incorrect. The first count prior to closing was correct, but the second confirmatory count was 1 needle off. An abdominal x-ray was performed showing a radiopaque foreign body in the right mid
to upper abdomen. I discussed with Dr. Nuckolls, radiology, and he felt that this likely represented a needle based on its appearance. Therefore, in order to ensure sterility, the patient was reprepped and draped. The midline incision was opened.
Using fluoroscopic guidance, I identified the radiopaque object that was concerning for a retained needle in the right upper quadrant. This was in fact a surgical clip placed from a previous surgery. I removed this. An abdominal x-ray was
repeated and there was no longer any radiopaque foreign bodies within the abdomen concerning for a needle. The fascia was reclosed with 0 PDS, starting from the corners and meeting in the middle. I placed Seprafilm under the incision while
closing. I irrigated the subcutaneous tissue. Hemostasis was assured. I closed the skin with anat. The midline incision was dressed with Aquacel.
At this point, the procedure was complete. The patient was awoken and extubated without complication. All needle, sponge and instrument counts were reported as correct except for the 1 needle. The patient tolerated the procedure well and was
transferred to the recovery room in stable condition.
Of note, Amos Lares MD, ice cream freezer assistant, was necessary during this procedure for traction, countertraction, and exploratory purposes. Additionally, he performed the flexible sigmoidoscopy and handled the EEA stapler. I was present for the entire
duration of the case. SAMUEL Mackey started the case with me. She was then switched out with SAMUEL Rodríguez. When Dr. Lares arrived, Solitario scrubbed out.
DICTATED BY: Anmol Duke MD
[2025-04-10 23:04] LABS: Glucose - Point of Care 92 mg/dl (70-99)
[2025-04-10 23:28] LABS: Hematocrit 40.8 % (37.0-47.0); Hemoglobin 13.3 g/dL (12.0-16.0); Mean Corp Hgb Conc. 32.6 g/dL (33.0-37.0); Mean Corpuscular Volume 89.9 fL (81.0-99.0); Nucleated Red Blood Cells % 0 %; Platelet Count 179 10^3/uL (130-400); Red Cell Dist. Width 13.7 % (11.5-14.5)
[2025-04-10 23:52] LABS: Blood Urea Nitrogen 19 mg/dl (7-17); Calcium 7.7 mg/dl (8.4-10.2); Carbon Dioxide 18 mmol/L (22-30); Chloride 109 mmol/L (98-107); Estimated Creatinine Clearance 58 ml/min; Glucose 93 mg/dl (70-99); Potassium 4.6 mmol/L (3.5-5.1); Sodium 138 mmol/L (135-145); eGFR > 60.00
[2025-04-11] VITALS (23 sets, daily range): BP systolic 104–166; BP diastolic 45–109; BMI 24.3
--- NOTE | 2025-04-11 00:05 | PTCARENOTE ---
Patient not on floor when this RN arrived-Pt taken down to OR for planned ex lap & sigmoidectomy around 1400. Patient arrived to PACU at 2205. Patient transported to IMU from PACU- no longer coming to 2N. Emergency contact notified of transfer by
this RN.
[2025-04-11] MEDS: TYLENOL PO ×2 (00:13→06:05)
[2025-04-11] MEDS: TORADOL 15 MG IV ×4 (00:15→22:58)
--- NOTE | 2025-04-11 00:22 | PTCARENOTE ---
Pt received to IMU post-op from PACU. Pt very drowsy, lethargic. Can mumble one word answers. Responds to her name. Barely opens eyes. Pt did deny pain at this time. Midline abdominal aquacell dressing with linear shadowing. Per PACU report IVF's
were capped in OR after pt received 2.5 liters. Extremity edema noted as documented. IV sites patent. VSS. Afebrile. RUL very diminished. POX 100% on 2L NC - pt's baseline. SR/PVC's/Vent bigeminy rate 80's. Hypoactive BS. No BM. Longoria draining clear
yellow urine. Unable to take PO meds at this time. Toradol given as ordered. SCD's remain on and working. Rest of assessment as documented. Maintained on Q2hr turns. Call wright remains within reach. Will continue to monitor.
[2025-04-11 03:41] LABS: Hematocrit 36.9 % (37.0-47.0); Hemoglobin 11.9 g/dL (12.0-16.0); Mean Corp Hgb Conc. 32.2 g/dL (33.0-37.0); Mean Corpuscular Volume 87.9 fL (81.0-99.0); Nucleated Red Blood Cells % 0 %; Platelet Count 154 10^3/uL (130-400); Red Cell Dist. Width 13.7 % (11.5-14.5)
[2025-04-11 04:01] LABS: ALT (SGPT) 55 U/L (0-35); AST (SGOT) 67 U/L (14-36); Albumin 3.1 g/dl (3.5-5.0); Alkaline Phosphatase 64 U/L (38-126); Blood Urea Nitrogen 20 mg/dl (7-17); Calcium 7.3 mg/dl (8.4-10.2); Carbon Dioxide 17 mmol/L (22-30); Chloride 113 mmol/L (98-107); Estimated Creatinine Clearance 58 ml/min; Glucose 99 mg/dl (70-99); Potassium 4.5 mmol/L (3.5-5.1); Sodium 139 mmol/L (135-145); Total Protein 5.1 g/dl (6.3-8.2); eGFR > 60.00
[2025-04-11] MEDS: SYNTHROID PO (06:05)
[2025-04-11] MEDS: ZYRTEC PO (06:06)
[2025-04-11] MEDS: NON-FORMULARY ITEM 1 UNIT INH ×2 (07:25→19:24)
--- NOTE | 2025-04-11 08:36 | W.PN.HOSP.TC ---
Today's Communication/Plan
-
Pain control wound care as per Surgeon
IVF support, ok to discontinue if displays good oral intake
Incentive spirometer wean o2 supplementation as tolerated
PT
Bicarb supplementation
Assessment / Plan
Assessment / Plan
Physical Exam
General: No Apparent Distress, Comfortable and Conversant; No Fever or Chills
HEENT: NormoCephalic, Anicteric, Moist mucous membranes, PERRLA, [place] Conjunctivae and No Ptosis
Respiratory: Clear; No Wheezes, Rales or Rhonchi on low dose nasal cannula supplementation
Cardiac: S1/S2, Regular Rhythm and Murmur (2/6 systolic); No Rub or Gallop
GI: Soft, some expected Tenderness, Non Distended, bowel sounds present, midline wound dressing clean dry intact
Musculoskeletal: No Clubbing, No Cyanosis and No Edema
Skin: Warm and Dry; No Rash
Neuro: AO x 3 conversant coherent
Psych: Calm
CT abdomen pelvis with IV contrast:
1. wall thickening involving the proximal sigmoid colon which may be related to reported mass/stricture.
2. There was fluid present throughout the colon as well as mild distention of the cecum/ascending colon.
Findings may represent an element of diarrheal illness/malabsorption although partial distal small bowel obstruction related to the
above-described sigmoid colon abnormality possible.
84F hx osteoarthritis, hypothyroidism, HTN, chronic pain/narcotics, Osteoporosis, COPD on chronic 2 L NC HS and ambulation, Idiopathic pulmonary fibrosis, Mild cognitive impairment, Nonrheumatic aortic valve stenosis, Depression, Chronic lower
extremity lymphedema, GERD HLD, History of left-sided breast cancer 2022, sent by Dr. Lares for abdominal cramping diarrhea after undergoing a colonoscopy for abnormality on MRI. On colonoscopy she was noted to have severe stenosis unknown length
found in the sigmoid colon at 30 cm from the verge colorectal was unable to pass the scope through to obtain biopsy. Likely chronic large bowel partial obstruction due to sigmoid stricture, planned for sigmoidectomy as per CRS.
#Acute diarrheal illness with volume depletion likely secondary to Sigmoid colon stricture causing partial SBO
#Severe stenosis sigmoid colon with Moderate stool rectosigmoid colon on colonoscopy 04/08/2025
- Consult CRS appreciated ex lap with sigmoidectomy christina and takedown of sigmoid flexure performed 04/10/25
-stool studies neg for CDiff and norovirus
-Clear liquid diet as per surgery
- cont IV LR 100 cc/h for now, discontinue if patient displays good oral intake
Acute Hypoxic Insufficiency
-suspect post-anaesthesia residual sided effects
-incentive spirometer
-wean O2 supplementation as tolerated
#Hypokalemia
#Hypocalcemia
monitor and replete as necessary.
#Metabolic Acidosis
-low dose bicarb PO supplementation for now
#Diverticulitis Hx
Osteoarthritis on chronic Oral opiates
-cont pain control as per surgeon, recent surgery as above, scheduled Toradol Tylenol prn oxycodone Dilaudid
#Osteoporosis
Spondylosis lumbar sacral spine
-Patient is on Prolia every 6 months
-Continue vitamin D
#Hypothyroidism
-Continue levothyroxine 100 mcg daily
# HTN
Continue amlodipine 10 mg daily, valsartan 320 mg daily with hold parameters
#COPD on chronic 2 L nasal cannula at bedtime and with ambulation
#Former smoker quit age 33
#Idiopathic pulmonary fibrosis
-Continue inhalers, continue Singulair
#Chronic mild cognitive impairment
Oriented to name, place, president, history is somewhat forgetful short-term
#Nonrheumatic aortic valve stenosis
#Depression
No reported meds
#Balance disorder
#Chronic bilateral lower extremity edema
PT eval appreciated home health
#Reported hx GERD
- no current meds
#Reported hx HLD
- No current meds
#History of left-sided breast cancer 2022 was on former letrozole
#Reported hx Overactive bladder
-no current meds
DVT prophylaxis
SCDs
Full code
discussed with patient and patient's inspector sheet metal parts Eric
I spent a total of 50 minutes with the patient or on the floor. More than 50% of this time involved counseling and coordination of care.
Anticipated Discharge: 24 - 48 hours
Subjective/Interval History
-
Date of Service: April 11, 2025
no acute distress, resting comfortably in bed. On low dose nasal cannula supplementation. Lethargic but arousable oriented x3. Reports pain well controlled at this time. Patient was noted to have a bowel movement later in day.
Objective Data
-
Labs:
Laboratory Results
04/10/25 04/10/25 04/11/25
23:12 23:13 03:27
WBC 18.4 H 14.9 H
Hgb 13.3 11.9 L
Hct 40.8 36.9 L
Plt Count 179 154
Sodium 138 139
Potassium 4.6 D 4.5
Chloride 109 H 113 H
Carbon Dioxide 18 L 17 L
BUN 19 H 20 H
Creatinine 0.6 0.6
Glucose 93 99
Calcium 7.7 L 7.3 L
Total Bilirubin 0.6
AST 67 H
ALT 55 H
Alkaline Phosphatase 64
Vital Signs:
Vital Signs
Temp Pulse Resp BP Pulse Ox
97.4 F 74 16 148/67 99
04/11/25 02:57 04/11/25 07:28 04/11/25 07:28 04/11/25 06:00 04/11/25 07:28
I&O
04/10/25 04/11/25 04/12/25
06:59 06:59 06:59
Intake Total 967 / 967 860 / 860
Output Total 750 / 750
Balance 967 / 967 110 / 110
[2025-04-11] MEDS: NORVASC 10 MG PO (09:44)
[2025-04-11] MEDS: DIOVAN 320 MG PO (09:44)
[2025-04-11] MEDS: VITAMIN D3 (cholecalciferol) 25 MCG PO (09:45)
[2025-04-11] MEDS: NON-FORMULARY ITEM 1 UNIT PO (10:34)
[2025-04-11] MEDS: RELISTOR 12 MG SC (11:13)
[2025-04-11] MEDS: LR 1000 IV ×2 (11:13→19:32)
[2025-04-11] MEDS: TYLENOL 1000 MG PO ×3 (11:37→22:58)
--- NOTE | 2025-04-11 11:43 | W.PN.GS2 ---
Today's Communication / Plan
-
clear liquids
Assessment / Plan
-
84 yo female with diverticular sigmoid stricture now POD #1 ex lap with sigmoidectomy christina and takedown of sigmoid flexure
Afebrile, VSS
Mild hypoxia requiring O2
+BM today but not really passing flatus
Leukocytosis trending down
Renal function stable
Plan:
C/W clears for now
D/C cardenas for voiding trial
Wean O2 as tolerated. IS while awake
OOB/Ambulate
Methylnaltrexone x3 doses post op
Scheduled nonnarcotic analgesics, prn narcotics
IVF as per primary team, ok from surgical standpoint to dc once good po intake
Lovenox and scds for VTE ppx
Ok for transfer to /tele from surgical standpoint
Subjective Data
-
Date of Service: April 11, 2025
Pt seen and examined at bedside with Dr. Talavera. Had an episode of liquid stool this am. Denies n/v. Not sure that she has passed any flatus. Pain well controlled.
Objective Data
-
Intake and Output
04/10/25 04/11/25 04/12/25
06:59 06:59 06:59
Intake Total 967 / 967 860 / 860
Output Total 750 / 750
Balance 967 / 967 110 / 110
Intake:
Oral fluids 480 / 480 0 / 0
IV fluids (Total) 487 / 487 490 / 490
Normosol 100 / 100
IV piggybacks 370 / 370
Output:
Urine, Cardenas 750 / 750
Other:
Number of approximated MODERATE 1 2
amounts of urine
Vital Signs
Temp Pulse Resp BP Pulse Ox
98.4 F 85 16 141/52 99
04/11/25 11:30 04/11/25 09:44 04/11/25 07:28 04/11/25 09:44 04/11/25 07:28
Lab Results
04/11/25 03:27
04/11/25 03:27
Calcium 7.3 mg/dl (8.4-10.2) L 04/11/25 03:27
Magnesium 2.0 mg/dl (1.6-2.3) 04/09/25 15:28
Total Bilirubin 0.6 mg/dl (0.2-1.3) 04/11/25 03:27
AST 67 U/L (14-36) H 04/11/25 03:27
ALT 55 U/L (0-35) H 04/11/25 03:27
Alkaline Phosphatase 64 U/L (38-126) 04/11/25 03:27
Total Protein 5.1 g/dl (6.3-8.2) L 04/11/25 03:27
Albumin 3.1 g/dl (3.5-5.0) L 04/11/25 03:27
Physical Exam
-
NAD
ABD soft, expected tenderness, ND
Midline dressing intact with shadowing on dressing
Patient has a cardenas catheter: Yes
--- NOTE | 2025-04-11 14:07 | CM ---
CM following re: discharge planning.
reviewed pt's chart, met with pt.
PT and OT evaluation noted - home PT/OT recommended. pt is awre, expressed her agreement and pt requested [facility]. A referral to [facility] made.
IMM reviewed, placed on chart, pt has a copy.
D/C plan: Return back to her living arrangements at [facility] with [facility]. Friend to transport.
CM will follow with discharge plan updates as hospitalization progresses
[2025-04-11] MEDS: SODIUM BICARBONATE 325 MG PO ×2 (17:11→22:57)
[2025-04-11] MEDS: LOVENOX 40 MG SC (17:16)
--- NOTE | 2025-04-11 20:06 | PTCARENOTE ---
Pt received at beginning of shift resting in bed. AAOx3. Slightly forgetful. Admits to abdominal discomfort / with movement. Declines need for pain med at this time. Abdominal dressing with shadowing unchanged from previous shift. Hypoactive BS.
Longoria removed at 1700. On T&A. Edema noted to LLE, UE's and pedal as documented. LE's elevated on pillows. SCD's/teds remain on. VSS. Afebrile. SR/PVC/V. Bigeminy on CM rate 90. POX on 1L NC 94%. Lungs clear but shallow. Able to move about in bed.
Rest of assessment as documented. Call wright remains within reach. Will continue to monitor.
[2025-04-11] MEDS: CARDIZEM 10 MG IV (23:33)
[2025-04-11] MEDS: CARDIZEM 125 IV (23:36)
--- NOTE | 2025-04-11 23:43 | PTCARENOTE ---
At approx 2315 pt's alarm going off HR 130's-140's sustained. Pt asymptomatic. Ekg obtained pt in new Afib. Marlene MANZO on floor and made aware. Stat BMP/Mg ordered and sent to lab. Cardizem 10mg bolus ordered and given. Cardizem gtt at 10mg/hr
ordered and currently infusing. HR 150. BP 104/75. Pt continues without complaint. Currently resting comfortably. Call wright remains within reach. Will continue to monitor.
[2025-04-11 23:59] LABS: Blood Urea Nitrogen 30 mg/dl (7-17); Calcium 7.5 mg/dl (8.4-10.2); Carbon Dioxide 25 mmol/L (22-30); Chloride 110 mmol/L (98-107); Estimated Creatinine Clearance 44 ml/min; Glucose 139 mg/dl (70-99); Magnesium 2.2 mg/dl (1.6-2.3); Potassium 4.0 mmol/L (3.5-5.1); Sodium 136 mmol/L (135-145); eGFR > 60.00
[2025-04-12] VITALS (11 sets, daily range): BP systolic 111–139; BP diastolic 46–60; PULSE 84; O2SAT 96; BMI 25.7
--- NOTE | 2025-04-12 00:21 | PTCARENOTE ---
Pt back in ventricular bigeminy/pvc's rate holding in the 70's. After TT'ing with Marlene MANZO Cardizem gtt decreased to 5mg/hr and will monitor. Pt currently sleeping. Will continue to monitor.
--- NOTE | 2025-04-12 01:36 | W.PN.UPDATE ---
Update Note
Progress Note Update
Overnight pt HR spiked to 140s. Asymptomatic. EKG done showed aflutter which is new for pt. Cardio consulted. Started on cardizem gtt and less than an hour later converted back to previous bigeminy rhythm.�LAbs checked and WNL.
--- NOTE | 2025-04-12 04:00 | PTCARENOTE ---
Pt without void overnight since cardenas d/c'd yesterday. Pt feels no need to void. Bladder scanned for 29mls. However pt has aquacell dressing leading down to lower abdomen after 2 surgeries yesterday which interferes with obtaining adequate bladder
scan. Pt has been receiving IVF's at 100mls/hr since beginning of shift and has been drinking water throughout shift. Pt has a balance disorder and has not been seen by PT yet. Marlene MANZO TT'd and made aware of above. Ok to straight cath. Pt straight
cathed for 125mls amanda urine. Will update day shift RN. Will continue to monitor.
[2025-04-12 04:16] LABS: Hematocrit 35.6 % (37.0-47.0); Hemoglobin 11.9 g/dL (12.0-16.0); Mean Corp Hgb Conc. 33.4 g/dL (33.0-37.0); Mean Corpuscular Volume 87.7 fL (81.0-99.0); Nucleated Red Blood Cells % 0 %; Platelet Count 188 10^3/uL (130-400); Red Cell Dist. Width 14.3 % (11.5-14.5)
[2025-04-12 04:34] LABS: ALT (SGPT) 35 U/L (0-35); AST (SGOT) 43 U/L (14-36); Albumin 2.6 g/dl (3.5-5.0); Alkaline Phosphatase 69 U/L (38-126); Blood Urea Nitrogen 32 mg/dl (7-17); Calcium 7.5 mg/dl (8.4-10.2); Carbon Dioxide 24 mmol/L (22-30); Chloride 111 mmol/L (98-107); Estimated Creatinine Clearance 39 ml/min; Glucose 106 mg/dl (70-99); Potassium 4.0 mmol/L (3.5-5.1); Sodium 136 mmol/L (135-145); Total Protein 4.7 g/dl (6.3-8.2); eGFR > 60.00
[2025-04-12] MEDS: LR 1000 IV (05:35)
[2025-04-12] MEDS: TYLENOL 1000 MG PO ×3 (05:36→17:34)
[2025-04-12] MEDS: SYNTHROID 100 MCG PO (05:36)
--- NOTE | 2025-04-12 06:50 | W.PN.HOSP.TC ---
Today's Communication/Plan
-
stable for downgrade to Tele
Cardizem gtt transition to PO as per cardio
Pain control, diet, wound care as per Surgery
IVF support pending improvement oral intake
PT/OT
Assessment / Plan
Assessment / Plan
Physical Exam
General: No Apparent Distress, Comfortable and Conversant; No Fever or Chills
HEENT: NormoCephalic, Anicteric, Moist mucous membranes, PERRLA, [place] Conjunctivae and No Ptosis
Respiratory: Clear; No Wheezes, Rales or Rhonchi on low dose nasal cannula supplementation
Cardiac: S1/S2, Regular Rhythm and Murmur (2/6 systolic); No Rub or Gallop
GI: Soft, some expected Tenderness, Non Distended, bowel sounds present, midline wound dressing clean dry intact
Musculoskeletal: No Clubbing, No Cyanosis and No Edema
Skin: Warm and Dry; No Rash
Neuro: AO x 3 conversant coherent
Psych: Calm
CT abdomen pelvis with IV contrast:
1. wall thickening involving the proximal sigmoid colon which may be related to reported mass/stricture.
2. There was fluid present throughout the colon as well as mild distention of the cecum/ascending colon.
Findings may represent an element of diarrheal illness/malabsorption although partial distal small bowel obstruction related to the
above-described sigmoid colon abnormality possible.
84F hx osteoarthritis, hypothyroidism, HTN, chronic pain/narcotics, Osteoporosis, COPD on chronic 2 L NC HS and ambulation, Idiopathic pulmonary fibrosis, Mild cognitive impairment, Nonrheumatic aortic valve stenosis, Depression, Chronic lower
extremity lymphedema, GERD HLD, History of left-sided breast cancer 2022, sent by Dr. Lares for abdominal cramping diarrhea after undergoing a colonoscopy for abnormality on MRI. On colonoscopy she was noted to have severe stenosis unknown length
found in the sigmoid colon at 30 cm from the verge colorectal was unable to pass the scope through to obtain biopsy. Likely chronic large bowel partial obstruction due to sigmoid stricture, planned for sigmoidectomy as per CRS.
#Acute diarrheal illness with volume depletion likely secondary to Sigmoid colon stricture causing partial SBO
#Severe stenosis sigmoid colon with Moderate stool rectosigmoid colon on colonoscopy 04/08/2025
#Diverticulitis Hx
- Consult CRS appreciated ex lap with sigmoidectomy christina and takedown of sigmoid flexure performed 04/10/25
- stool studies neg for CDiff and norovirus
- Clear liquid diet advanced to Regular as per surgery
- IVF support for now pending improvement oral intake
#Post-op Overnight Afib/flutter
converted spontaneously soon after cardizem gtt
Cardio eval appreciated Cardizem gtt transitioned to PO, follow up ECHO, no need for afib therapeutic anticoagulation at this time
#Acute on Chronic Hypoxic Insufficiency/Respiratory Failure
#COPD baseline on chronic 2 L nasal cannula at bedtime and with ambulation
#Former smoker quit age 33
#Idiopathic pulmonary fibrosis
-Continue inhalers, continue Singulair
-suspect post-anaesthesia residual sided effects
-incentive spirometer
-wean O2 supplementation as tolerated
#Hypokalemia
#Hypocalcemia
monitor and replete as necessary.
#Metabolic Acidosis Resolved
-low dose bicarb PO supplementation completed
#Osteoarthritis on chronic Oral opiates
-cont pain control as per surgeon, recent surgery as above, scheduled Toradol Tylenol prn oxycodone Dilaudid
#Osteoporosis
Spondylosis lumbar sacral spine
-Patient is on Prolia every 6 months
-Continue vitamin D
#Hypothyroidism
-Continue levothyroxine 100 mcg daily
# HTN
Continue amlodipine 10 mg daily, valsartan 320 mg daily with hold parameters
#Chronic mild cognitive impairment
Oriented to name, place, president, history is somewhat forgetful short-term
#Nonrheumatic aortic valve stenosis
#Depression
No reported meds
#Balance disorder
#Chronic bilateral lower extremity edema
PT eval appreciated home health
#Reported hx GERD
- no current meds
#Reported hx HLD
- No current meds
#History of left-sided breast cancer 2022 was on former letrozole
#Reported hx Overactive bladder
-no current meds
DVT prophylaxis
SCDs
Full code
PT/OT appreciated SNF rehab
Stable for downgrade to Tele
discussed with patient and patient's financial director Eric
I spent a total of 45 minutes with the patient or on the floor. More than 50% of this time involved counseling and coordination of care.
Anticipated Discharge: 24 - 48 hours
Subjective/Interval History
-
Date of Service: April 12, 2025
No acute distress, resting comfortably in bed. Overall reports feeling well. Pain relatively well controlled at this time. Tenderness at surgical wound site. Reports flatus, denies bowel movement today, though bowel movement was reported
yesterday. Denies nausea, wants to eat. denies chest pain palpitations.
Objective Data
-
Labs:
Laboratory Results
04/11/25 04/12/25
23:23 03:50
WBC 14.3 H
Hgb 11.9 L
Hct 35.6 L
Plt Count 188 D
Sodium 136 136
Potassium 4.0 4.0
Chloride 110 H 111 H
Carbon Dioxide 25 24
BUN 30 H 32 H
Creatinine 0.8 0.9
Glucose 139 H 106 H
Calcium 7.5 L 7.5 L
Total Bilirubin 0.5
AST 43 H
ALT 35
Alkaline Phosphatase 69
Vital Signs:
Vital Signs
Temp Pulse Resp BP Pulse Ox
97.8 F 78 22 134/57 96
04/12/25 03:00 04/12/25 06:00 04/12/25 06:00 04/12/25 06:00 04/12/25 06:00
I&O
0904/11/25 04/12/25
06:59 06:59 06:59
Intake Total 967 / 967 860 / 860 1440 / 1440
Output Total 750 / 750 125 / 125
Balance 967 / 967 110 / 110 1315 / 1315
[2025-04-12] MEDS: NON-FORMULARY ITEM 1 UNIT INH ×2 (07:27→19:26)
[2025-04-12] MEDS: NORVASC 10 MG PO (08:40)
[2025-04-12] MEDS: VITAMIN D3 (cholecalciferol) 25 MCG PO (08:40)
[2025-04-12] MEDS: TORADOL 15 MG IV ×2 (08:40→17:35)
[2025-04-12] MEDS: DIOVAN 320 MG PO (08:40)
[2025-04-12] MEDS: NON-FORMULARY ITEM 1 UNIT PO (08:43)
[2025-04-12] MEDS: RELISTOR 12 MG SC (10:36)
[2025-04-12] MEDS: ZYRTEC 10 MG PO (10:36)
--- NOTE | 2025-04-12 11:02 | CON.CAR ---
Consultation
Consultation Request
Date/Time Consultation Requested: 04/12/2025
Date/Time Consultation Performed: 04/12/2025
Requesting Provider: Hospitalist
Performing Provider: Albino
Reason for Consultation: Postoperative atrial fibrillation
Medical History
-
Chief Complaint: Postoperative atrial fibrillation
History of Present Illness:
Ms. Rodríguez is a very pleasant 84-year-old female who is status post sigmoid colon resection with takedown after small bowel obstruction and colonic stricture. It appears that we were consulted in 2014 for bronchitis x 1 and also an echocardiogram
in the system read by Dr. Maurice in 2023 demonstrating mild aortic stenosis peak mean gradient 30/16. She examines to a midsystolic murmur without blunted S2 and tolerated her procedure well. She is taking p.o.'s although overnight did have
atrial fibrillation with rapid ventricular response which was relatively asymptomatic and is currently seen in sinus rhythm on an IV Cardizem drip with stable vital signs. Normal ejection fraction was noted in 2023
Past Medical History
Past Medical History: Arrhythmias, COPD and HTN
Past Surgical History: Bowel Resection
Social History
Tobacco: Former Smoker
Alcohol: None
Drug: None
Personal: Other
Living: Other
Employment: Retired
Family History
Family History: Reviewed & Not Pertinent
Allergies / Home Medications
Allergy/AdvReac Type Severity Reaction Status Date / Time
gage Allergy ROSES-Seasonal' Verified 04/09/25 18:49
watery
eyes,sore
throat,
sneezing ,
itching.
grass pollen Allergy Seasonal' Verified 04/09/25 18:49
watery
eyes,sore
throat,
sneezing ,
itching.
house dust Allergy Seasonal' Verified 04/09/25 18:49
watery
eyes,sore
throat,
sneezing ,
itching.
mold Allergy Seasonal' Verified 04/09/25 18:49
watery
eyes,sore
throat,
sneezing ,
itching.
tree and shrub pollen Allergy Seasonal' Verified 04/09/25 18:49
watery
eyes,sore
throat,
sneezing ,
itching.
�Medication �Instructions �Recorded �Confirmed �Type
Zyrtec: 10 mg PO DAILY AT 0700 11/23/14 03/25/15 History
albuterol sulfate 90 mcg/actuation 2 puff inhalation PRN PRN sob 11/23/14 04/09/25 History
aerosol inhaler
amlodipine 10 mg-valsartan 320 mg 1 tab PO DAILY Blood Pressure 11/23/14 04/09/25 History
tablet (Exforge)
fluticasone propionate 50 2 spray intranasal DAILY 11/23/14 04/09/25 History
mcg/actuation nasal Lung/Breathing Issues
spray,suspension
cholecalciferol (vitamin D3) 25 1,000 unit PO DAILY Supplement 02/24/15 04/09/25 History
mcg (1,000 unit) capsule (Vitamin
D3)
acetaminophen 325 mg tablet 650 mg (2 x 325 mg) PO Q4HPRN PRN 03/28/15 04/09/25 Rx
pain ##0
Advair Diskus 1 inh inhalation BID AT 0800,1600 04/09/25 04/09/25 History
Lung/Breathing Issues
levothyroxine 100 mcg tablet 100 mcg PO DAILY Thyroid 04/09/25 04/09/25 History
oxycodone 5 mg tablet 5 mg PO BIDPRN PRN mod pain 04/09/25 04/09/25 History
Review of Systems
-
All other systems: Negative unless noted
Abdomen/GI: Abdominal Pain and Nausea
Physical Exam
Vital Signs
Temp Pulse Resp BP Pulse Ox
97.4 F 79 16 134/57 97
04/12/25 07:07 04/12/25 07:31 04/12/25 07:31 04/12/25 06:00 04/12/25 07:31
Lab Results
04/12/25 03:50
04/12/25 03:50
Troponin I < 0.012 ng/ml 04/09/25 16:41
Physical Exam
General: Well Developed and Well Nourished
HEENT: Normocephalic
Respiratory: Clear
Cardiac: Regular Rhythm and Murmur
Breast: Deferred by me
GI: Soft and Tender (Left lower quadrant)
Rectal: Deferred by Provider
Genito-urinary: Clear Urine
Musculoskeletal: No Clubbing and No Cyanosis
Skin: Warm and Dry
Neuro: Awake, Alert, Oriented and AO x 3
Hematologic/Lymphatic: No Lymphadenopathy
Psych: Calm
Impression / Plan
-
Impression:
Postoperative atrial fibrillation
Prior history of mild aortic stenosis by 2023 echo
COPD
Hypertension
Colonic stricture SBO
Postoperative colonic resection with takedown
Mild dementia
Essential hypertension
Mild hypothyroidism
Recommendations:
I ordered p.o. Cardizem and can stop Cardizem drip 6 hours after first p.o. dose
If she has further atrial fibrillation we do have alternative medications we can utilize
I would not initiate oral anticoagulation based upon 1 postoperative atrial fibrillation episode although I would repeat her ultrasound to look at her degree of aortic stenosis and maintain telemetry to see if she has further atrial fibrillation
episodes. With repetitive atrial fibrillation short-term or long-term oral anticoagulation will be reasonable and outpatient ambulatory rhythm monitoring would be recommended.
Advancing diet and clinical regimen as you are
We will follow with you
I have no objection to transfer outside the IMU but would maintain telemetry
Data Reviewed
-
EKG: Tracing Personally Visualized and interpreted
Radiology: Image Personally Visualized and interpreted
Labs: Labs Reviewed by me
Old Records: Reviewed
--- NOTE | 2025-04-12 11:27 | W.PN.GS2 ---
Today's Communication / Plan
-
advance diet
Assessment / Plan
-
84 yo female with diverticular sigmoid stricture now POD #2 ex lap with sigmoidectomy christina and takedown of sigmoid flexure
Afebrile, VSS
VT yesterday with low UO, CIC overnight for 125ml
Rapid afib episode, appreciate cardiology eval
Passing flatus/tolerating liquids
Leukocytosis present
Renal function stable, suspect mild hypovolemia given low uo and elevated BUN:CR ratio
Plan:
Advance to regular diet
Follow voiding pattern
IVF with NSS at 80ml/hr given low oral fluid intake
IS while awake, wean off O2
OOB/Ambulate
Methylnaltrexone x3 doses post op
Scheduled nonnarcotic analgesics, prn narcotics
Lovenox and scds for VTE ppx
Subjective Data
-
Date of Service: April 12, 2025
Pt seen and examined at bedside with Dr. Talavera. Some abdominal discomfort. Denies n/v. Passing flatus. Events of overnight noted.
Objective Data
-
Intake and Output
04/11/25 04/12/25 04/13/25
06:59 06:59 06:59
Intake Total 860 / 860 1440 / 1440
Output Total 750 / 750 125 / 125
Balance 110 / 110 1315 / 1315
Intake:
Oral fluids 0 / 0 240 / 240
IV fluids (Total) 490 / 490 1200 / 1200
Normosol 100 / 100
IV piggybacks 370 / 370
Output:
Urine, Cardenas 750 / 750
Straight cath output 125 / 125
Other:
Number of approximated MODERATE 2
amounts of urine
Vital Signs
Temp Pulse Resp BP Pulse Ox
97.4 F 79 16 134/57 97
04/12/25 07:07 04/12/25 07:31 04/12/25 07:31 04/12/25 06:00 04/12/25 07:31
Lab Results
04/12/25 03:50
04/12/25 03:50
Calcium 7.5 mg/dl (8.4-10.2) L 04/12/25 03:50
Magnesium 2.2 mg/dl (1.6-2.3) 04/11/25 23:23
Total Bilirubin 0.5 mg/dl (0.2-1.3) 04/12/25 03:50
AST 43 U/L (14-36) H 04/12/25 03:50
ALT 35 U/L (0-35) 04/12/25 03:50
Alkaline Phosphatase 69 U/L (38-126) 04/12/25 03:50
Total Protein 4.7 g/dl (6.3-8.2) L 04/12/25 03:50
Albumin 2.6 g/dl (3.5-5.0) L 04/12/25 03:50
Physical Exam
-
NAD
ABD soft, expected tenderness, ND
Midline dressing intact with shadowing on dressing
Patient has a cardenas catheter: No
[2025-04-12] MEDS: CARDIZEM CD 180 MG PO (13:13)
[2025-04-12] MEDS: NSS 1000 IV (15:51)
[2025-04-12] MEDS: LOVENOX 40 MG SC (17:34)
--- NOTE | 2025-04-12 20:49 | PTCARENOTE ---
[facility] made aware of transfer to [facility].
--- NOTE | 2025-04-12 21:15 | PTCARENOTE ---
pt transferred from [facility] @ 2104. Arrived with PCT via WC. VSS. IVF NS 80ml/hr. bed locked in lowest position. call wright within reach. pt resting comfortably. care ongoing.
[2025-04-13] VITALS (7 sets, daily range): BP systolic 127–169; BP diastolic 53–87; PULSE 91; O2SAT 93; BMI 25.4
[2025-04-13] MEDS: TORADOL IV (00:26)
[2025-04-13] MEDS: TYLENOL PO (00:27)
[2025-04-13] MEDS: ZYRTEC 10 MG PO (06:06)
[2025-04-13] MEDS: TYLENOL 1000 MG PO ×3 (06:06→17:03)
[2025-04-13] MEDS: NSS 1000 IV (06:07)
[2025-04-13] MEDS: SYNTHROID 100 MCG PO (06:07)
[2025-04-13 06:34] LABS: Hematocrit 34.1 % (37.0-47.0); Hemoglobin 11.1 g/dL (12.0-16.0); Mean Corp Hgb Conc. 32.6 g/dL (33.0-37.0); Mean Corpuscular Volume 88.6 fL (81.0-99.0); Nucleated Red Blood Cells % 0 %; Platelet Count 177 10^3/uL (130-400); Red Cell Dist. Width 14.6 % (11.5-14.5)
[2025-04-13 06:52] LABS: ALT (SGPT) 31 U/L (0-35); AST (SGOT) 39 U/L (14-36); Albumin 2.5 g/dl (3.5-5.0); Alkaline Phosphatase 68 U/L (38-126); Blood Urea Nitrogen 28 mg/dl (7-17); Calcium 7.5 mg/dl (8.4-10.2); Carbon Dioxide 25 mmol/L (22-30); Chloride 110 mmol/L (98-107); Estimated Creatinine Clearance 50 ml/min; Glucose 90 mg/dl (70-99); Potassium 3.9 mmol/L (3.5-5.1); Sodium 136 mmol/L (135-145); Total Protein 4.4 g/dl (6.3-8.2); eGFR > 60.00
[2025-04-13] MEDS: NON-FORMULARY ITEM 1 UNIT INH ×2 (08:16→19:49)
[2025-04-13] MEDS: RELISTOR 12 MG SC (09:40)
[2025-04-13] MEDS: PROTONIX 40 MG PO (09:42)
[2025-04-13] MEDS: DIOVAN 320 MG PO (09:42)
[2025-04-13] MEDS: VITAMIN D3 (cholecalciferol) 25 MCG PO (09:42)
[2025-04-13] MEDS: NORVASC 10 MG PO (09:42)
[2025-04-13] MEDS: TORADOL 15 MG IV ×3 (09:42→23:45)
[2025-04-13] MEDS: CARDIZEM CD 180 MG PO (09:42)
[2025-04-13] MEDS: NON-FORMULARY ITEM 1 UNIT PO (09:46)
--- NOTE | 2025-04-13 10:32 | W.PN.CARDCBS ---
Today's Communication / Plan
-
Remains in sinus rhythm on oral Cardizem
No anticoagulation for now is felt to be A-fib from postoperative phenomenon
Impression / Plan
-
Impression:
Postoperative atrial fibrillation, spontaneously converted to sinus rhythm
Prior history of mild aortic stenosis by 2023 echo
COPD
Hypertension
Colonic stricture SBO
Postoperative colonic resection with takedown
Mild dementia
Essential hypertension
Mild hypothyroidism
Echocardiogram 04/21/2024: Ejection fraction 60 to 65%, mild aortic stenosis with mean gradient of 16 mmHg, mild AI, PA systolic 56 mmHg
Recommendations:
She remains in sinus rhythm
A-fib felt to be postoperative phenomenon and hold off on anticoagulation for now but will consider if recurs as she may have been asymptomatic with A-fib
Check echocardiogram to follow aortic stenosis
Progress Note - Household Assistant
Subjective
Date of Service: April 13, 2025
No chest pain or shortness of breath. Remains in sinus rhythm
Objective
Labs:
04/13/25 06:08
04/13/25 06:08
Labs
Hgb 11.1 g/dL (12.0-16.0) L 04/13/25 06:08
Hct 34.1 % (37.0-47.0) L 04/13/25 06:08
Plt Count 177 10^3/uL (130-400) 04/13/25 06:08
PT 15.5 Sec (11.4-14.6) H 04/10/25 08:54
INR 1.20 04/10/25 08:54
APTT 30.8 Sec (23.4-35.0) 04/10/25 08:54
Sodium 136 mmol/L (135-145) 04/13/25 06:08
Potassium 3.9 mmol/L (3.5-5.1) 04/13/25 06:08
BUN 28 mg/dl (7-17) H 04/13/25 06:08
Creatinine 0.7 mg/dL (0.6-1.0) 04/13/25 06:08
Glucose 90 mg/dl (70-99) 04/13/25 06:08
Vital Signs and I&O:
Vital Signs
Temp Pulse Resp BP Pulse Ox
98.3 F 83 16 152/67 96
04/13/25 07:00 04/13/25 07:00 04/13/25 07:00 04/13/25 07:00 04/13/25 07:00
Vital Signs
Temp Pulse Resp BP Pulse Ox
98.3 F 83 16 152/67 96
04/13/25 07:00 04/13/25 07:00 04/13/25 07:00 04/13/25 07:00 04/13/25 07:00
Intake & Output
04/11/25 04/12/25 04/13/25 04/14/25
06:59 06:59 06:59 06:59
Intake Total 860 / 860 1440 / 1440 420 / 420
Output Total 750 / 750 125 / 125
Balance 110 / 110 1315 / 1315 420 / 420
Physical Exam
Physical Exam
General: Well developed, well nourished in NAD.
Neck: Supple, no JVD, HJR, carotids +2 B/L, no bruits bilaterally.
Heart: Non displaced PMI, RRR, no murmurs, No S3, S4, no rubs.
Lungs: Clear to auscultation bilaterally, no wheeze, rhonchi, rubs bilaterally,
normal expiratory phase.
Extremities: No clubbing, cyanosis or edema bilaterally.
Neuro: Grossly nonfocal, awake, alert and oriented x3.
--- NOTE | 2025-04-13 11:16 | W.PN.CRS1 ---
Today's Communication / Plan
-
continue diet
OOB
pathology pending
Assessment/Plan
-
84 yo female with diverticular sigmoid stricture now POD #3 ex lap with sigmoidectomy christina and takedown of sigmoid flexure
Afebrile, VSS
Rapid afib episode, appreciate cardiology eval
Passing flatus/tolerating liquids
-Continue regular diet
-IVF with NSS at 80ml/hr given low oral fluid intake
-IS while awake, wean off O2
-OOB/Ambulate
-Methylnaltrexone x3 doses post op
-Scheduled nonnarcotic analgesics, prn narcotics
-Lovenox and scds for VTE ppx
-Appreciate hospitalist/cards - remains in sinus (brief afib over weekend), no AC required
-OR pathology pending
Subjective Data
Subjective Data
Date of Service: April 13, 2025
Patient states she feels sore. She denies bleeding. Denies vomiting. She has flatus and bowel movements.
Objective Data
-
Vital Signs
Temp Pulse Resp BP Pulse Ox
98.3 F 83 16 152/67 96
04/13/25 07:00 04/13/25 07:00 04/13/25 07:00 04/13/25 07:00 04/13/25 07:00
Intake & Output
04/12/25 04/13/25 04/14/25
06:59 06:59 06:59
Intake Total 1440 / 1440 420 / 420
Output Total 125 / 125
Balance 1315 / 1315 420 / 420
Intake:
Oral fluids 240 / 240 420 / 420
IV fluids (Total) 1200 / 1200
Output:
Straight cath output 125 / 125
Other:
Number of approximated SMALL 1
amounts of urine
Number of approximated MODERATE 1
amounts of urine
Lab Results
04/13/25 06:08
04/13/25 06:08
Physical Exam
-
General: No Acute Distress and AOx3
Abdomen: Soft, Non Distended and Tender (mild around incisions)
Skin: Warm and Dry
Incision: Clear, Dry, Intact
--- NOTE | 2025-04-13 12:00 | CM ---
CM following re: discharge planning.
Reviewed pt's chart, met with pt.
Updated PT and OT evaluations noted - SNF level of care recommended. Pt is aware, expressed her agreement and pt requested [facility]. A referral to [facility] made. CM left a message to [facility] director of business operations regarding a
referral.
D/C plan: [facility] when medically stable
CM will follow to assist pt with discharge to [facility].
[2025-04-13] MEDS: NSS IV (12:31)
--- NOTE | 2025-04-13 13:15 | W.PN.HOSP.TC ---
Today's Communication/Plan
-
continue oral Cardizem
IVF per CRS pending improvement in oral intake
DC planning to SNF
Assessment / Plan
Assessment / Plan
Assessment:
Acute diarrheal illness with volume depletion likely secondary to Sigmoid colon stricture causing partial SBO
Severe stenosis sigmoid colon with Moderate stool rectosigmoid colon on colonoscopy 04/08/2025
Diverticulitis Hx
- CT: wall thickening involving the proximal sigmoid colon which may be related to reported mass/stricture. fluid present throughout the colon as well as mild distention of the cecum/ascending colon.
- CRS following; s/p ex-lap with sigmoidectomy, DEVYN, splenic flexure takedown 04/10/25
- diet: regular. low rate IVF for now pending improvement in oral intake
- pain control, anti-emetics
Post-op Overnight Afib/flutter
- converted spontaneously soon after cardizem gtt
- Cardio following; continue PO Cardizem. No need for anticoagulation as spontaneously converted.
- Echo: pending
Acute on Chronic Hypoxic Insufficiency/Respiratory Failure
COPD baseline on chronic 2 L nasal cannula at bedtime and with ambulation
Former smoker quit age 33
Idiopathic pulmonary fibrosis
- Continue inhalers, continue Singulair
- suspect post-anesthesia residual sided effects
- incentive spirometer
- wean O2 supplementation as tolerated
Hypokalemia
Hypocalcemia
- monitor and replete as necessary.
Metabolic Acidosis Resolved
- low dose bicarb PO supplementation completed
Osteoarthritis on chronic Oral opiates
- cont pain control as per surgeon, recent surgery as above, scheduled Toradol Tylenol prn oxycodone Dilaudid
Osteoporosis
Spondylosis lumbar sacral spine
- Patient is on Prolia every 6 months
- Continue vitamin D
Hypothyroidism
- continue levothyroxine 100 mcg daily
HTN
- continue amlodipine 10 mg daily, valsartan 320 mg daily with hold parameters
Chronic mild cognitive impairment
- Oriented to name, place, president, history is somewhat forgetful short-term
Nonrheumatic aortic valve stenosis
Depression
- No reported meds
Balance disorder
Chronic bilateral lower extremity edema
- PT/OT evals- SNF recommended
Reported hx GERD
- no current meds
Reported hx HLD
- No current meds
History of left-sided breast cancer 2022 was on former letrozole
Reported hx Overactive bladder
- no current meds
DVT prophylaxis: SCDs
Code: Full
Anticipated Discharge: 24 - 48 hours
Subjective/Interval History
-
Date of Service: April 13, 2025
reports soreness
tolerating diet, + BM and + flatus
Objective Data
-
Labs:
Laboratory Results
04/13/25
06:08
WBC 12.4 H
Hgb 11.1 L
Hct 34.1 L
Plt Count 177
Sodium 136
Potassium 3.9
Chloride 110 H
Carbon Dioxide 25
BUN 28 H
Creatinine 0.7
Glucose 90
Calcium 7.5 L
Total Bilirubin 0.5
AST 39 H
ALT 31
Alkaline Phosphatase 68
Vital Signs:
Vital Signs
Temp Pulse Resp BP Pulse Ox
98.2 F 83 16 169/63 93
04/13/25 11:00 04/13/25 11:00 04/13/25 11:00 04/13/25 11:00 04/13/25 11:00
I&O
04/12/25 04/13/25 04/14/25
06:59 06:59 06:59
Intake Total 1440 / 1440 420 / 420
Output Total 125 / 125
Balance 1315 / 1315 420 / 420
Physical Exam
-
General: No Apparent Distress
HEENT: Normocephalic and Atraumatic
Respiratory: Negative Wheezes
Cardiac: Regular Rhythm and S1/S2
GI: Tender (around incisions)
Genito-urinary: No Costovertebral Tender
Neuro: AO x 3
Psych: Calm
Data Reviewed
-
Total Time Spent with Patient (in minutes): 42
Labs: Labs Reviewed by me
[2025-04-13] MEDS: LOVENOX 40 MG SC (17:03)
--- NOTE | 2025-04-14 01:00 | PTCARENOTE ---
Pt went to bathroom with tech, there is a hat in the toilet for I/O. Pt's urine missed the hat. PCT said pt went a moderate amount just before 1am
[2025-04-14 03:03] VITALS: BP 162/63
[2025-04-14] MEDS: TYLENOL 1000 MG PO ×3 (05:19→12:24)
[2025-04-14] MEDS: SYNTHROID 100 MCG PO (05:19)
[2025-04-14 06:00] VITALS: BMI 25.5
[2025-04-14] MEDS: ZYRTEC 10 MG PO (06:31)
[2025-04-14 06:43] LABS: Hematocrit 34.5 % (37.0-47.0); Hemoglobin 11.3 g/dL (12.0-16.0); Mean Corp Hgb Conc. 32.8 g/dL (33.0-37.0); Mean Corpuscular Volume 89.4 fL (81.0-99.0); Platelet Count 199 10^3/uL (130-400); Red Cell Dist. Width 14.5 % (11.5-14.5)
[2025-04-14] MEDS: NON-FORMULARY ITEM 1 UNIT INH ×2 (07:21→19:59)
[2025-04-14 07:39] LABS: ALT (SGPT) 30 U/L (0-35); AST (SGOT) 36 U/L (14-36); Albumin 2.6 g/dl (3.5-5.0); Alkaline Phosphatase 76 U/L (38-126); Blood Urea Nitrogen 21 mg/dl (7-17); Calcium 8.3 mg/dl (8.4-10.2); Carbon Dioxide 25 mmol/L (22-30); Chloride 112 mmol/L (98-107); Estimated Creatinine Clearance 50 ml/min; Glucose 95 mg/dl (70-99); Potassium 4.0 mmol/L (3.5-5.1); Sodium 138 mmol/L (135-145); Total Protein 4.7 g/dl (6.3-8.2); eGFR > 60.00
[2025-04-14 07:44] VITALS: BP 168/70
[2025-04-14] MEDS: VITAMIN D3 (cholecalciferol) 25 MCG PO (07:53)
[2025-04-14] MEDS: NORVASC 10 MG PO (07:53)
[2025-04-14] MEDS: PROTONIX 40 MG PO (07:53)
[2025-04-14] MEDS: DIOVAN 320 MG PO (07:53)
[2025-04-14] MEDS: TORADOL 15 MG IV ×2 (07:56→15:49)
[2025-04-14] MEDS: NON-FORMULARY ITEM 1 UNIT PO (07:57)
[2025-04-14] MEDS: CARDIZEM CD 180 MG PO (07:58)
--- NOTE | 2025-04-14 08:15 | W.PN.CARDCBS ---
Addendum entered and electronically signed by Monty Gutierrez MD 04/14/25 12:15:
I saw and examined the patient.
The [employer] or PA's note was reviewed and I agree with the note.
Comment: General: Well developed, well nourished in NAD.
Neck: Supple, no JVD, HJR, carotids +2 B/L, no bruits bilaterally.
Heart: Non displaced PMI, RRR, no murmurs, No S3, S4, no rubs.
Lungs: Clear to auscultation bilaterally, no wheeze, rhonchi, rubs bilaterally,
normal expiratory phase.
Extremities: No clubbing, cyanosis or edema bilaterally.
Neuro: Grossly nonfocal, awake, alert and oriented x3.
Remains in sinus rhythm.
Will change Cardizem to Toprol. Will arrange outpatient follow-up. Will sign off, call with questions
Original Note:
Today's Communication / Plan
-
Change Cardizem to Toprol 25 mg BID
Will need 2 week outpatient at d/c
Outpatient cardiology follow-up will be arranged
Impression / Plan
-
PCP: Mallory Medeiros
Lap Checker: None prior to admission, initial consultation Dr. Posada
Impression:
diverticular stricture on colonoscopy/SBO
S/p ex lap, sigmoidectomy, takedown of splenic flexure, flexible sigmoidoscopy 04/10/2025
Postoperative atrial fibrillation, spontaneously converted to sinus rhythm
Prior history of mild aortic stenosis by 2023 echo
COPD
Hypertension
Mild dementia
Essential hypertension
Mild hypothyroidism
Echo 04/13/2025: EF 60%. Mild LVH. Mild to moderate with peak/mean gradient 32/18 mmHg, mild AR. PAP 47 mmHg. Findings similar to prior echo in April 2024
Echocardiogram 04/21/2024: Ejection fraction 60 to 65%, mild aortic stenosis with mean gradient of 16 mmHg, mild AI, PA systolic 56 mmHg
Recommendations:
-Elective admission for diverticular stricture on colonoscopy/SBO S/p ex lap, sigmoidectomy, takedown of splenic flexure, flexible sigmoidoscopy 04/10/2025
-Postoperative atrial fibrillation with spontaneous conversion to sinus rhythm on IV diltiazem drip. Transition to oral Cardizem 180 mg daily. Has been maintaining sinus rhythm with frequent PVCS and ventricular bigeminy. Pt is asymptomatic
-Upon reviewing medication list appears the patient is both on amlodipine 10 mg and diltiazem 180 mg. Will change diltiazem to Toprol 25 mg twice a day to avoid patient being on 2 different calcium channel blockers
-A-fib felt to be postoperative phenomenon and hold off on anticoagulation for now but will consider if recurs then will need to consider initiation of OAC. This was discussed with patient and she is agreeable.
-Should go to SNF with 2-week outpatient monitor on discharge. If monitor shows recurrent atrial fibrillation she will require anticoagulation.
-TSH 1.30
-Echo performed this admission overall is stable with preserved ejection fraction and mild to moderate aortic stenosis with similar gradients compared to echo in April 2024. Will require surveillance monitoring with serial serial
echocardiograms.
- Will arrange for outpatient cardiology follow-up in 4 weeks.
Plan discussed with patient, hospitalist and nursing
History of Present Illness 04/12/2025:
Ms. Rodríguez is a very pleasant 84-year-old female who is status post sigmoid colon resection with takedown after small bowel obstruction and colonic stricture. It appears that we were consulted in 2014 for bronchitis x 1 and also an echocardiogram
in the system read by Dr. Maurice in 2023 demonstrating mild aortic stenosis peak mean gradient 30/16. She examines to a midsystolic murmur without blunted S2 and tolerated her procedure well. She is taking p.o.'s although overnight did have
atrial fibrillation with rapid ventricular response which was relatively asymptomatic and is currently seen in sinus rhythm on an IV Cardizem drip with stable vital signs. Normal ejection fraction was noted in 2023
Progress Note - Lap Checker
Subjective
Date of Service: April 14, 2025
Patient seen and examined. Patient resting comfortably in bed. Notes some mild abdominal tenderness. Denies chest pain, shortness of breath or palpitations
Objective
Labs:
04/14/25 06:04
04/14/25 06:04
Labs
Hgb 11.3 g/dL (12.0-16.0) L 04/14/25 06:04
Hct 34.5 % (37.0-47.0) L 04/14/25 06:04
Plt Count 199 10^3/uL (130-400) 04/14/25 06:04
PT 15.5 Sec (11.4-14.6) H 04/10/25 08:54
INR 1.20 04/10/25 08:54
APTT 30.8 Sec (23.4-35.0) 04/10/25 08:54
Sodium 138 mmol/L (135-145) 04/14/25 06:04
Potassium 4.0 mmol/L (3.5-5.1) 04/14/25 06:04
BUN 21 mg/dl (7-17) H 04/14/25 06:04
Creatinine 0.7 mg/dL (0.6-1.0) 04/14/25 06:04
Glucose 95 mg/dl (70-99) 04/14/25 06:04
Vital Signs and I&O:
Vital Signs
Temp Pulse Resp BP Pulse Ox
98.2 F 70 15 162/63 96
04/14/25 03:03 04/14/25 07:27 04/14/25 07:27 04/14/25 03:03 04/14/25 07:27
Vital Signs
Temp Pulse Resp BP Pulse Ox
98.2 F 70 15 162/63 96
04/14/25 03:03 04/14/25 07:27 04/14/25 07:27 04/14/25 03:03 04/14/25 07:27
Intake & Output
04/12/25 04/13/25 04/14/2504/15/25
06:59 06:59 06:59 06:59
Intake Total 1440 / 1440 420 / 420 920 / 920
Output Total 125 / 125 200 / 200
Balance 1315 / 1315 420 / 420 720 / 720
Physical Exam
Physical Exam
GEN: No distress, awake, Ox3, laying comfortably on bed
HEENT: supple, anicteric, mmm
LUNGS: CTA, no wheezes/rales
CV: Reg with ectopy noted, S1/S2, 2/6 syst murmur
ABD: soft, BS+, NT/ND
EXT: No edema, clubbing or cyanosis
NEURO: Gross non-focal
SKIN: No rash, warm, dry, pink
--- NOTE | 2025-04-14 08:25 | W.PN.CRS1 ---
Today's Communication / Plan
-
okay for d/c when SNF arranged
Assessment/Plan
-
84 yo female with diverticular sigmoid stricture now POD #4 ex lap with sigmoidectomy christina and takedown of sigmoid flexure
Afebrile, VSS
Rapid afib episode, appreciate cardiology eval
Passing flatus/tolerating liquids
-Continue regular diet
-IS while awake, wean off O2
-OOB/Ambulate
-Scheduled nonnarcotic analgesics, prn narcotics
-Lovenox and scds for VTE ppx
-Appreciate hospitalist/cards - remains in sinus (brief afib over weekend), no AC required
-OR pathology pending
-Okay for discharge from our perspective. Going to SNF. Follow up with Dr. Myers in 2 weeks from discharge.
Subjective Data
Subjective Data
Date of Service: April 14, 2025
Patient states she is feeling well. She is 'sensitive' but in no real pain. She has flatus, no bowel movements yet. She is hungry.
Objective Data
-
Vital Signs
Temp Pulse Resp BP Pulse Ox
98.2 F 70 15 162/63 96
04/14/25 03:03 04/14/25 07:27 04/14/25 07:27 04/14/25 03:03 04/14/25 07:27
Intake & Output
04/13/25 04/14/25 04/15/25
06:59 06:59 06:59
Intake Total 420 / 420 920 / 920
Output Total 200 / 200
Balance 420 / 420 720 / 720
Intake:
Oral fluids 420 / 420 720 / 720
IV fluids (Total) 200 / 200
Output:
Urine, Voided 200 / 200
Other:
Number of approximated SMALL 1
amounts of urine
Number of approximated MODERATE 1 2
amounts of urine
Lab Results
04/14/25 06:04
04/14/25 06:04
Physical Exam
-
General: No Acute Distress and AOx3
Abdomen: Soft, Non Distended and Tender (mild throughout)
Skin: Warm and Dry
--- NOTE | 2025-04-14 10:40 | CM ---
Addendum entered by Rosario Elaine 04/14/25 15:25:
dea phone number is [phone]/cell [phone]. Per Dea their first choice would be [facility] if possible.
Addendum entered by Rosario Elaine 04/14/25 15:14:
additional referrals sent to [facility], [facility] and [facility] as they accept [employer] [facility]. Patient aware and confirmed both Dea and [facility] are her POA. Dea
Original Note:
Per [facility] Liaison no beds available for placement today or tomorrow. CM was given contact information for POA at is both [facility] and [facility]. does not have the contact information for 2nd poa, liaison to fax contact information to CM. CM
will call to patient poa and review options for snf placement. CM will continue to follow for discharge planning needs.
Plan; SNF when bed available, additional referrals to be sent
[2025-04-14 11:10] VITALS: BP 179/93
[2025-04-14] MEDS: TOPROL XL 25 MG PO (12:21)
[2025-04-14] MEDS: ZOFRAN 4 MG IV ×2 (12:57→20:36)
--- NOTE | 2025-04-14 14:34 | W.PN.HOSP.TC ---
Today's Communication/Plan
-
Dispo: Medically stable for DC to SNF pending bed/auth. CM aware.
Assessment / Plan
Assessment / Plan
Assessment:
Acute diarrheal illness with volume depletion likely secondary to Sigmoid colon stricture causing partial SBO
Severe stenosis sigmoid colon with Moderate stool rectosigmoid colon on colonoscopy 04/08/2025
Diverticulitis Hx
- CT: wall thickening involving the proximal sigmoid colon which may be related to reported mass/stricture. fluid present throughout the colon as well as mild distention of the cecum/ascending colon.
- CRS following; s/p ex-lap with sigmoidectomy, DEVYN, splenic flexure takedown 04/10/25
- diet: regular
- pain control, anti-emetics
Post-op Overnight Afib/flutter
- converted spontaneously soon after Cardizem gtt
- Cardio following; continue PO Cardizem. No need for anticoagulation as spontaneously converted.
- Echo 04/13/2025: EF 60%. Mild LVH. Mild to moderate with peak/mean gradient 32/18 mmHg, mild AR. PAP 47 mmHg. Findings similar to prior echo in April 2024
Acute on Chronic Hypoxic Insufficiency/Respiratory Failure
COPD baseline on chronic 2 L nasal cannula at bedtime and with ambulation
Former smoker quit age 33
Idiopathic pulmonary fibrosis
- Continue inhalers, continue Singulair
- suspect post-anesthesia residual sided effects
- incentive spirometer
- wean O2 supplementation as tolerated
Hypokalemia
Hypocalcemia
- monitor and replete as necessary.
Metabolic Acidosis Resolved
- low dose bicarb PO supplementation completed
Osteoarthritis on chronic Oral opiates
- cont pain control as per surgeon, recent surgery as above, scheduled Toradol Tylenol prn oxycodone Dilaudid
Osteoporosis
Spondylosis lumbar sacral spine
- Patient is on Prolia every 6 months
- Continue vitamin D
Hypothyroidism
- continue levothyroxine 100 mcg daily
HTN
- continue amlodipine 10 mg daily, valsartan 320 mg daily with hold parameters
Chronic mild cognitive impairment
- Oriented to name, place, president, history is somewhat forgetful short-term
Nonrheumatic aortic valve stenosis
Depression
- No reported meds
Balance disorder
Chronic bilateral lower extremity edema
- PT/OT evals- SNF recommended
Reported hx GERD
- no current meds
Reported hx HLD
- No current meds
History of left-sided breast cancer 2022 was on former letrozole
Reported hx Overactive bladder
- no current meds
DVT prophylaxis: SCDs
Code: Full
Dispo: Medically stable for DC to SNF pending bed/auth. CM aware.
Anticipated Discharge: Within 24 hours
Subjective/Interval History
-
Date of Service: April 14, 2025
resting comfortably, no complaints
Objective Data
-
Labs:
Laboratory Results
04/14/25
06:04
WBC 9.4
Hgb 11.3 L
Hct 34.5 L
Plt Count 199
Sodium 138
Potassium 4.0
Chloride 112 H
Carbon Dioxide 25
BUN 21 H
Creatinine 0.7
Glucose 95
Calcium 8.3 L
Total Bilirubin 0.5
AST 36
ALT 30
Alkaline Phosphatase 76
Vital Signs:
Vital Signs
Temp Pulse Resp BP Pulse Ox
98.1 F 91 16 179/93 95
04/14/25 11:10 04/14/25 12:21 04/14/25 11:10 04/14/25 12:21 04/14/25 11:10
I&O
04/13/25 04/14/25 04/15/25
06:59 06:59 06:59
Intake Total 420 / 420 920 / 920 660 / 660
Output Total 200 / 200 500 / 500
Balance 420 / 420 720 / 720 160 / 160
Physical Exam
-
General: No Apparent Distress
HEENT: Normocephalic and Atraumatic
Respiratory: Negative Wheezes
Cardiac: Regular Rhythm and S1/S2
GI: Soft and Nontender
Neuro: AO x 3
Hematologic / Lymphatic: No Lymphadenopathy
Psych: Calm
Data Reviewed
-
Total Time Spent with Patient (in minutes): 42
Labs: Labs Reviewed by me
[2025-04-14 15:05] VITALS: BP 175/90
[2025-04-14] MEDS: APRESOLINE 5 MG IV (16:18)
[2025-04-14] MEDS: TYLENOL PO (17:44)
[2025-04-14] MEDS: LOVENOX SC (17:55)
--- NOTE | 2025-04-14 18:25 | PTCARENOTE ---
Pt c/o nausea an some vomiting after PO meds early aftrnoon. Refused 1700 and 1800 meds , refused compazine.
[2025-04-14 19:10] VITALS: BP 165/63
[2025-04-14 23:06] VITALS: BP 165/60
[2025-04-15] VITALS (9 sets, daily range): BP systolic 91–165; BP diastolic 43–89
[2025-04-15] MEDS: TORADOL IV (00:33)
[2025-04-15] MEDS: TYLENOL PO ×2 (00:34→06:00)
--- NOTE | 2025-04-15 00:40 | PTCARENOTE ---
Assumed care of the pt @ 1900. Pt is AAOx3 c/o nausea zofran ivp given. Pt refused Tylenol and Toradol at this time. Call wright within reach.
[2025-04-15] MEDS: SYNTHROID 100 MCG PO (05:59)
[2025-04-15] MEDS: ZYRTEC 10 MG PO (06:02)
[2025-04-15] MEDS: NON-FORMULARY ITEM 1 UNIT INH ×2 (07:38→20:04)
--- NOTE | 2025-04-15 08:40 | W.PN.CRS1 ---
Today's Communication / Plan
-
as below
Assessment/Plan
-
84-year-old female with PMH of COPD, interstitial pulmonary fibrosis, mild cognitive impairment, hypothyroidism, HTN, aortic stenosis, depression, GERD, HLD, breast cancer, diverticulitis who was found to have diverticular stricture on colonoscopy
performed 03/08/2025 by my partner, Dr. Lares, who presented to the ED on 03/09 with symptomatic diverticular stricture associated with abdominal pain and diarrhea.
POD 5 ex lap, sigmoidectomy, takedown of splenic flexure, flexible sigmoidoscopy
AFVSS
No labs this a.m.
�Will send labs and obtain CT AP with p.o., IV and rectal contrast
� Make NPO with IVF
�Needs strict intake/output to ensure adequate urine output
� Pain control with Tylenol and Toradol, oxycodone as needed
� Continue DVT PPx with Lovenox
� OOB/IS
� Appreciate cardiology, continue Cardizem p.o.
� Appreciate hospitalist
Dispo�hold on discharge
Subjective Data
Subjective Data
Date of Service: April 15, 2025
Per patient and nurse, patient had episode of vomiting last night and a few hours ago.
She did have a liquid BM last night. States she is passing 'a little' of flatus.
Voiding.
Denies any issues with pain.
Objective Data
-
Vital Signs
Temp Pulse Resp BP Pulse Ox
98.4 F 58 16 139/74 98
04/15/25 03:06 04/15/25 07:41 04/15/25 07:41 04/15/25 03:06 04/15/25 07:41
Intake & Output
04/14/25 04/15/25 04/16/25
06:59 06:59 06:59
Intake Total 920 / 920 897 / 897
Output Total 200 / 200 500 / 500
Balance 720 / 720 397 / 397
Intake:
Oral fluids 720 / 720 897 / 897
IV fluids (Total) 200 / 200
Output:
Urine, Voided 200 / 200 500 / 500
Other:
Number of approximated MODERATE 2 4
amounts of urine
Physical Exam
-
General: No Acute Distress and AOx3
HEENT: Grossly Normal
Abdomen: Soft, Distended (Mildly distended, subtle tympany), Non Tender, No Guarding and No Rebound
Skin: Warm and Dry
Wound: No Signs of Infection, No Skin Erythema and Other (Midline incision closed with anat, open to air, no drainage)
[2025-04-15] MEDS: DIOVAN PO (08:41)
[2025-04-15] MEDS: NON-FORMULARY ITEM 1 UNIT PO (08:42)
[2025-04-15] MEDS: PROTONIX 40 MG PO (08:43)
[2025-04-15] MEDS: NORVASC 10 MG PO (08:43)
[2025-04-15] MEDS: VITAMIN D3 (cholecalciferol) 25 MCG PO (08:44)
[2025-04-15] MEDS: ZOFRAN 4 MG IV ×2 (08:46→16:00)
--- NOTE | 2025-04-15 08:47 | W.PN.HOSP.TC ---
Today's Communication/Plan
-
BP meds (parameters placed)
IVF while NPO for repeat CT today for nausea/vomiting
Assessment / Plan
Assessment / Plan
Assessment:
Acute diarrheal illness with volume depletion likely secondary to Sigmoid colon stricture causing partial SBO
Severe stenosis sigmoid colon with Moderate stool rectosigmoid colon on colonoscopy 04/08/2025
Diverticulitis Hx
- CT: wall thickening involving the proximal sigmoid colon which may be related to reported mass/stricture. fluid present throughout the colon as well as mild distention of the cecum/ascending colon.
- CRS following; s/p ex-lap with sigmoidectomy, DEVYN, splenic flexure takedown 04/10/25
- diet: regular
- pain control, anti-emetics
- recurrent nausea 04/14 into 04/15, repeat CT pending
Post-op Overnight Afib/flutter
- converted spontaneously soon after Cardizem gtt
- Cardio following; continue po Coreg. No need for anticoagulation as spontaneously converted.
- Echo 04/13/2025: EF 60%. Mild LVH. Mild to moderate with peak/mean gradient 32/18 mmHg, mild AR. PAP 47 mmHg. Findings similar to prior echo in April 2024
Acute on Chronic Hypoxic Insufficiency/Respiratory Failure
COPD baseline on chronic 2 L nasal cannula at bedtime and with ambulation
Former smoker quit age 33
Idiopathic pulmonary fibrosis
- Continue inhalers, continue Singulair
- suspect post-anesthesia residual sided effects
- incentive spirometer
- wean O2 supplementation as tolerated
Hypokalemia
Hypocalcemia
- monitor and replete as necessary.
Metabolic Acidosis Resolved
- low dose bicarb PO supplementation completed
Osteoarthritis on chronic Oral opiates
- cont pain control as per surgeon, recent surgery as above, scheduled Toradol Tylenol prn oxycodone Dilaudid
Osteoporosis
Spondylosis lumbar sacral spine
- Patient is on Prolia every 6 months
- Continue vitamin D
Hypothyroidism
- continue levothyroxine 100 mcg daily
HTN
- continue amlodipine 10 mg daily, valsartan 320 mg daily with hold parameters
- continue Coreg with hold parameters
Chronic mild cognitive impairment
- Oriented to name, place, president, history is somewhat forgetful short-term
Nonrheumatic aortic valve stenosis
Depression
- No reported meds
Balance disorder
Chronic bilateral lower extremity edema
- PT/OT evals- SNF recommended
Reported hx GERD
- no current meds
Reported hx HLD
- No current meds
History of left-sided breast cancer 2022 was on former letrozole
Reported hx Overactive bladder
- no current meds
DVT prophylaxis: SCDs
Code: Full
Anticipated Discharge: 24 - 48 hours
Subjective/Interval History
-
Date of Service: April 15, 2025
patient with recurring nausea/vomiting over past 24 hours, requiring Zofran and Compazine
liquid stool x [address]
Objective Data
-
Labs:
Laboratory Results
04/15/25 04/15/25
08:32 08:42
WBC Pending Pending
Hgb Pending Pending
Hct Pending Pending
Plt Count Pending Pending
Sodium Pending Pending
Potassium Pending Pending
Chloride Pending Pending
Carbon Dioxide Pending Pending
BUN Pending Pending
Creatinine Pending Pending
Glucose Pending Pending
Calcium Pending Pending
Vital Signs:
Vital Signs
Temp Pulse Resp BP Pulse Ox
98.4 F 45 16 165/63 98
04/15/25 03:06 04/15/25 08:41 04/15/25 07:41 04/15/25 08:41 04/15/25 07:41
I&O
04/14/25 04/15/25 04/16/25
06:59 06:59 06:59
Intake Total 920 / 920 897 / 897
Output Total 200 / 200 500 / 500
Balance 720 / 720 397 / 397
Physical Exam
-
General: No Apparent Distress
HEENT: Normocephalic and Atraumatic
Respiratory: Clear to Auscultation; Negative Wheezes
Cardiac: Regular Rhythm, S1/S2 and Bradycardic
GI: Distended
Neuro: AO x 3
Hematologic / Lymphatic: No Lymphadenopathy
Psych: Calm
Data Reviewed
-
Total Time Spent with Patient (in minutes): 44
Labs: Labs Reviewed by me
[2025-04-15] MEDS: TORADOL 15 MG IV ×2 (08:50→16:17)
[2025-04-15 09:05] LABS: Hematocrit 39.8 % (37.0-47.0); Hemoglobin 13.1 g/dL (12.0-16.0); Mean Corp Hgb Conc. 32.9 g/dL (33.0-37.0); Mean Corpuscular Volume 86.5 fL (81.0-99.0); Platelet Count 291 10^3/uL (130-400); Red Cell Dist. Width 14.6 % (11.5-14.5)
[2025-04-15] MEDS: OMNIPAQUE 50 ML PO (09:39)
[2025-04-15] MEDS: LR 1000 IV (09:48)
[2025-04-15 10:16] LABS: ALT (SGPT) 36 U/L (0-35); AST (SGOT) 31 U/L (14-36); Albumin 3.1 g/dl (3.5-5.0); Alkaline Phosphatase 81 U/L (38-126); Blood Urea Nitrogen 24 mg/dl (7-17); Calcium 8.7 mg/dl (8.4-10.2); Carbon Dioxide 23 mmol/L (22-30); Chloride 110 mmol/L (98-107); Estimated Creatinine Clearance 50 ml/min; Glucose 112 mg/dl (70-99); Lipase 68 U/L (23-300); Magnesium 2.1 mg/dl (1.6-2.3); Potassium 4.9 mmol/L (3.5-5.1); Sodium 138 mmol/L (135-145); Total Protein 5.4 g/dl (6.3-8.2); eGFR > 60.00
[2025-04-15] MEDS: TYLENOL 1000 MG PO ×2 (12:48→18:11)
[2025-04-15] MEDS: MYLICON 80 MG PO (13:39)
--- NOTE | 2025-04-15 14:26 | CM ---
Addendum entered by Brenton Hector 04/15/25 15:08:
CM initiated an auth from [employer] for SNF level of care at [facility], spoke to dealer compliance representative Ban [phone] and based on pt's clinical pt is approved for 6 initial days starting tomorrow 04/16/25 till 04/21/25 with LCD and NRD
04/21/25. Auth: [id number]. For review call [facility] [phone] or [facility]: [phone].
to arrange ambulance B[facility] for tomorrow 04/16/25. PMNC completed and left with
[facility] nursing report: [phone]
Discharge instructions fax: [phone]
D/C plan: [facility] tomorrow 04/16/25.
Original Note:
CM following re: discharge planning.
reviewed pt's chart, met with pt.
CM spoke to [facility] youth director and she confirmed they will not have a bed available till next week
All SNFs pt referred to denied admission.
CM spoke to [facility] admission director and she stated that [facility] is in network with [facility] and she confirmed it with [facility] admission director.
A referral to [facility] made, spoke to youth director and she confirmed that pt is accepted for admission tomorrow.
Pt will need an auth from [employer]. For auth call [facility] [phone] or [phone]
Accepting Physician Luis Silvestre MPI: [id number]
D/C plan: [facility]. Will need an auth.
CM will follow yto assist pt with discharge to [facility].
[2025-04-15] MEDS: CARDIZEM 125 IV (15:22)
--- NOTE | 2025-04-15 15:32 | PTCARENOTE ---
Addendum entered by Emily White RN 04/15/25 17:38:
Cardizem gtt at 15mg/hr. Care ongoing.
Original Note:
Pt HR into the 160's-170's on the monitor. EKG obtained. Afib with RVR. BP 113/70. Dr. Snider notified. Cardizem gtt ordered. Care ongoing.
[2025-04-15] MEDS: DILAUDID 0.5 MG IV (16:05)
--- NOTE | 2025-04-15 16:24 | W.PN.CARDCBS ---
Addendum entered and electronically signed by Manjit Tafoya MD 04/15/25 17:07:
I saw and examined the patient.
The [employer]'s note was reviewed and I agree with the note.
Comment: Briefly, 84-year-old woman presenting with small bowel obstruction and underwent ex lap on 04/10/2025. Postoperatively she developed atrial fibrillation and then spontaneously converted back to sinus rhythm.
We are asked to reevaluate the patient's afternoon after she developed atrial fibrillation with rapid ventricular response. Patient seems to be asymptomatic in rapid A-fib and is not experiencing palpitations.
Diltiazem drip started at 5 mg/h apart heart rate remains rapid. Plan to uptitrate diltiazem for heart rate goal less than 110 bpm. In the postoperative period may need to tolerate more liberal heart rate goal.
Would hold amlodipine and valsartan
And uptitrate p.o. Coreg for additional heart rate control
Would tentatively add amiodarone as well for adjunct rate control
Recommend anticoagulation when safe from a surgical standpoint
Currently receiving IV fluid. Would hold for now to avoid volume overload as weight is up approximately 10 pounds from admission.
Discussed with nursing
Original Note:
Today's Communication / Plan
-
IV cardizem gtt, uptitrate for rate control
NPO due to CT scan with concern for ileus
OAC when ok per surgery
consider addition of amiodarone as 2nd episode of afib this admission
follow volume status. check proBNP. suspect will need diuresis this admission
Impression / Plan
-
PCP: Mallory Medeiros
Regional Forester: None prior to admission, initial consultation Dr. Posada
Impression:
diverticular stricture on colonoscopy/SBO
S/p ex lap, sigmoidectomy, takedown of splenic flexure, flexible sigmoidoscopy 04/10/2025
Postoperative atrial fibrillation, spontaneously converted to sinus rhythm, with recurrence 04/15
Mild to mod by echo 04/2025
COPD
Hypertension
Mild dementia
Mild hypothyroidism
Echo 04/13/2025: EF 60%. Mild LVH. Mild to moderate with peak/mean gradient 32/18 mmHg, mild AR. PAP 47 mmHg. Findings similar to prior echo in April 2024
Echocardiogram 04/21/2024: Ejection fraction 60 to 65%, mild aortic stenosis with mean gradient of 16 mmHg, mild AI, PA systolic 56 mmHg
Recommendations:
-Elective admission for diverticular stricture on colonoscopy/SBO S/p ex lap, sigmoidectomy, takedown of splenic flexure, flexible sigmoidoscopy 04/10/2025
-She had episode of postop A-fib and spontaneously converted to sinus rhythm on IV diltiazem drip. She was then noted to be on both amlodipine and diltiazem. Diltiazem was transitioned to coreg, but was not given this morning due to NPO status
with concern for ileus. she went back into afib with RVR @~1500. she is relatively asymptomatic. BP stable.
-started back on IV cardizem gtt @5, uptitrate for improved HR control
-[id number] score of 4 for age, female, HTN. discussed OAC with patient. given ileus surgery would like to hold off on OAC for 24 hours. will start when ok from surgical standpoint. hgb 13.1 04/15.
-would consider for amiodarone if rates remain rapid refractory to increasing rate control, or if spontaneously converts, to maintain NSR.
-TSH 1.3
-reviewed results of echo with patient, EF preserved with mild to mod which will need OP follow up with serial echo.
-currently on IVF @100. with fine crackles at B/L bases and some UE edema also noted. will follow volume status closely and will likely require diuresis. check proBNP
-remains on OP norvasc/diovan, however could consider de-escalating if additional rate control needed
-d/w nursing. d/w hospitalist via TT. d/w colorectal surgery via TT
History of Present Illness 04/12/2025:
Ms. Rodríguez is a very pleasant 84-year-old female who is status post sigmoid colon resection with takedown after small bowel obstruction and colonic stricture. It appears that we were consulted in 2014 for bronchitis x 1 and also an echocardiogram
in the system read by Dr. Maurice in 2023 demonstrating mild aortic stenosis peak mean gradient 30/16. She examines to a midsystolic murmur without blunted S2 and tolerated her procedure well. She is taking p.o.'s although overnight did have
atrial fibrillation with rapid ventricular response which was relatively asymptomatic and is currently seen in sinus rhythm on an IV Cardizem drip with stable vital signs. Normal ejection fraction was noted in 2023
Progress Note - Regional Forester
Subjective
Date of Service: April 15, 2025
denies CP, SOB, palpitations.
Objective
Labs:
04/15/25 08:42
04/15/25 08:42
Labs
Hgb Cancelled 04/15/25 08:42
Hct Cancelled 04/15/25 08:42
Plt Count Cancelled 04/15/25 08:42
PT 15.5 Sec (11.4-14.6) H 04/10/25 08:54
INR 1.20 04/10/25 08:54
APTT 30.8 Sec (23.4-35.0) 04/10/25 08:54
Sodium Cancelled 04/15/25 08:42
Potassium Cancelled 04/15/25 08:42
BUN Cancelled 04/15/25 08:42
Creatinine Cancelled 04/15/25 08:42
Glucose Cancelled 04/15/25 08:42
Vital Signs and I&O:
Vital Signs
Temp Pulse Resp BP Pulse Ox
99.9 F 147 18 123/74 93
04/15/25 15:20 04/15/25 16:16 04/15/25 15:20 04/15/25 16:16 04/15/25 15:20
Vital Signs
Temp Pulse Resp BP Pulse Ox
99.9 F 147 18 123/74 93
04/15/25 15:20 04/15/25 16:16 04/15/25 15:20 04/15/25 16:16 04/15/25 15:20
Intake & Output
04/13/25 04/14/25 04/15/25 04/16/25
07:59 07:59 07:59 07:59
Intake Total 420 / 420 920 / 920 897 / 897 240 / 240
Output Total 200 / 200 500 / 500
Balance 420 / 420 720 / 720 397 / 397 240 / 240
Physical Exam
Physical Exam
GEN: No distress, awake, alert, oriented x3. on supp O2
HEENT: supple, anicteric, mmm, eomi
LUNGS: Fine crackles B/L bases, no wheezes
CV: Irreg irreg, S1/S2, 1/6 syst LSB
ABD: soft, TTP
EXT: No cyanosis, clubbing. 1+ edema of B/L UE and LE
NEURO: Gross non-focal
SKIN: Warm, pink, dry. No rash. Several ecchymoses of UE noted
[2025-04-15] MEDS: LOVENOX 40 MG SC (18:11)
[2025-04-15] MEDS: LOPRESSOR 5 MG IV (19:38)
[2025-04-15] MEDS: COREG 6.25 MG PO (19:40)
[2025-04-16] VITALS (47 sets, daily range): BP systolic 65–119; BP diastolic 35–62; PULSE 2–63; BMI 24.9
[2025-04-16] MEDS: CARDIZEM 125 IV (00:41)
[2025-04-16] MEDS: TYLENOL 1000 MG PO ×2 (00:55→05:56)
[2025-04-16] MEDS: TORADOL 15 MG IV (01:01)
[2025-04-16] MEDS: SYNTHROID 100 MCG PO (05:56)
--- NOTE | 2025-04-16 07:30 | W.PN.UPDATE ---
Update Note
Progress Note Update
From 3:30pm yesterday:
I spoke with the patient, her nurse, and Dr. Snider. The patient has an ileus on the CT scan. Will keep n.p.o. for now as well as IV fluids. No need for NG tube at this point unless she continues to vomit. Discussed with the patient via phone.
�
[2025-04-16] MEDS: NON-FORMULARY ITEM 1 UNIT INH (07:40)
[2025-04-16 07:55] LABS: Hematocrit 35.6 % (37.0-47.0); Hemoglobin 11.4 g/dL (12.0-16.0); Mean Corp Hgb Conc. 32.0 g/dL (33.0-37.0); Mean Corpuscular Volume 89.9 fL (81.0-99.0); Platelet Count 252 10^3/uL (130-400); Red Cell Dist. Width 15.0 % (11.5-14.5)
[2025-04-16 08:22] LABS: ALT (SGPT) 28 U/L (0-35); AST (SGOT) 32 U/L (14-36); Albumin 2.4 g/dl (3.5-5.0); Alkaline Phosphatase 89 U/L (38-126); Blood Urea Nitrogen 32 mg/dl (7-17); Calcium 8.0 mg/dl (8.4-10.2); Carbon Dioxide 24 mmol/L (22-30); Chloride 107 mmol/L (98-107); Estimated Creatinine Clearance 21 ml/min; Glucose 49 mg/dl (70-99); Potassium 5.4 mmol/L (3.5-5.1); Sodium 136 mmol/L (135-145); Total Protein 4.4 g/dl (6.3-8.2); eGFR 29.02
[2025-04-16] MEDS: DEXTROSE 50% SYRINGE 12.5 GRAMS IV (08:36)
[2025-04-16] MEDS: D5/0.9% SODIUM CHLORIDE 1000 IV ×2 (08:41→20:40)
[2025-04-16 09:03] LABS: Glucose - Point of Care 113 mg/dl (70-99)
[2025-04-16] MEDS: ZOFRAN 4 MG IV (09:04)
--- NOTE | 2025-04-16 09:04 | CM ---
CM following re: discharge planning.
Reviewed pt's chart, met with pt.
According to MD pt is not medically stable to be discharged today.
[facility] accepted the pt when pt is medically stable. [facility] is in network with [facility] advantage plan.
Pt is approved for 6 initial days from 04/16/25 till 04/21/25 with LCD and NRD 04/21/25. Auth: [id number]. For review call [place] [phone] or [facility]: [phone].
[facility] nursing report: [phone]
Discharge instructions fax: [phone]
D/C plan: [facility] when medically stable.
[2025-04-16] MEDS: ZYRTEC PO (09:36)
[2025-04-16] MEDS: VITAMIN D3 (cholecalciferol) PO (09:36)
[2025-04-16] MEDS: PROTONIX 40 MG PO (09:38)
[2025-04-16] MEDS: NON-FORMULARY ITEM 1 UNIT PO (09:38)
[2025-04-16] MEDS: COREG 6.25 MG PO (09:39)
--- NOTE | 2025-04-16 10:18 | W.PN.CRS1 ---
Today's Communication / Plan
-
cardenas
abdominal xray
Assessment/Plan
-
84-year-old female with PMH of COPD, interstitial pulmonary fibrosis, mild cognitive impairment, hypothyroidism, HTN, aortic stenosis, depression, GERD, HLD, breast cancer, diverticulitis who was found to have diverticular stricture on colonoscopy
performed 03/08/2025 by my partner, Dr. Lares, who presented to the ED on 03/09 with symptomatic diverticular stricture associated with abdominal pain and diarrhea.
POD 6 ex lap, sigmoidectomy, takedown of splenic flexure, flexible sigmoidoscopy
Somewhat hypotensive overnight. WBC 10.6. Hemoglobin 11.4.
-Ileus on CT yesterday. Due to continued nausea, will order abdominal x-ray
�Continue n.p.o. IV fluids
- Cardenas insertion due to retention
� Pain control with Tylenol and Toradol, oxycodone as needed
� Continue DVT PPx with Lovenox
� OOB/IS
� Appreciate cardiology, continue Cardizem p.o.
� Appreciate hospitalist
- Dispo�hold on discharge to SNF
Subjective Data
Procedure
04/10/2025- ex lap, sigmoidectomy, takedown of splenic flexure, flexible sigmoidoscopy
Subjective Data
Date of Service: April 16, 2025
Patient states that she is nauseous. She has not vomited overnight. She is still a little tender. She is passing some flatus. She had several liquid bowel movements yesterday. She is also retaining urine.
Objective Data
-
Vital Signs
Temp Pulse Resp BP Pulse Ox
98.0 F 71 16 104/46 98
04/16/25 07:00 04/16/25 09:39 04/16/25 07:42 04/16/25 09:39 04/16/25 07:42
Intake & Output
04/15/25 04/16/25 04/17/25
06:59 06:59 06:59
Intake Total 897 / 897 1515 / 1515
Output Total 500 / 500
Balance 397 / 397 1515 / 1515
Intake:
Oral fluids 897 / 897 240 / 240
IV fluids (Total) 1100 / 1100
IV piggybacks 175 / 175
Output:
Urine, Voided 500 / 500
Other:
Number of approximated MODERATE 4
amounts of urine
How many times incontinent 2
SATURATED amount urine
Number of immeasurable emeses? 1
Lab Results
04/16/25 07:00
Physical Exam
-
General: No Acute Distress and AOx3
Abdomen: Soft, Non Distended and Tender (Mild around incisions, mildly distended, midline incision with anat with no drainage)
Skin: Warm and Dry
--- NOTE | 2025-04-16 11:15 | W.PN.CARDCBS ---
Addendum entered and electronically signed by Enoch Burt DO 04/16/25 15:38:
I saw and examined the patient AM 04/16/2025
[employer]'s note was reviewed and I agree with the note.
Comment:
Plan:
Back in sinus rhythm. Start IV Amiodarone to attempt to maintain SR
Start IV heparin once ok with surgery
Pt hypotensive, Coreg, losartan and norvasc held. Pt transferred to IMU/ICU for hemodynamic instability
IV Levophed for bp support
Monitor H/H
IVF hydration. Pt may end up needing diuresis once bp stabilized
Check limited echo to reeval EF and eval LV and RV.
Ongoing eval by primary service and surgery including pulm work up with hypoxia
Discussed with nursing and primary service.
CCT 31 min
Addendum entered and electronically signed by Bing Melendez PA-C 04/16/25 12:10:
as NPO, adding IV amiodarone at rate of 0.5 in attempt to maintain SR. hopefully can initiate IV heparin within 24 hours and would plan to transition to po amio when able to take po
Original Note:
Today's Communication / Plan
-
back in SR
stop IV cardizem with hypotension. hold parameters on coreg
increase IVF
consider for IV amiodarone
transfer to IMU
Impression / Plan
-
PCP: Mallory Medeiros
National Sales: None prior to admission, initial consultation Dr. Posada
Impression:
diverticular stricture on colonoscopy/SBO
S/p ex lap, sigmoidectomy, takedown of splenic flexure, flexible sigmoidoscopy 04/10/2025
Postoperative paroxysmal atrial fibrillation x2 with spontaneous conversion to SR
Mild to mod by echo 04/2025
COPD
Hypertension
Mild dementia
Mild hypothyroidism
Echo 04/13/2025: EF 60%. Mild LVH. Mild to moderate with peak/mean gradient 32/18 mmHg, mild AR. PAP 47 mmHg. Findings similar to prior echo in April 2024
Echocardiogram 04/21/2024: Ejection fraction 60 to 65%, mild aortic stenosis with mean gradient of 16 mmHg, mild AI, PA systolic 56 mmHg
Recommendations:
-Elective admission for diverticular stricture on colonoscopy/SBO S/p ex lap, sigmoidectomy, takedown of splenic flexure, flexible sigmoidoscopy 04/10/2025
-She had episode of postop A-fib and spontaneously converted to sinus rhythm on IV diltiazem drip. She was then noted to be on both amlodipine and diltiazem. Diltiazem was transitioned to coreg. she went back into afib with RVR @~1500 on 04/15 and
spontaneously converted back to SR at 8PM last evening. has remained in SR on tele since that time. consider for amiodarone as should not cause hypotension
-patient noted to be hypotensive with manual SBP in 60s. patient reports feeling very tired and dizzy with any movement. stopped IV cardizem gtt and temporarily increased IVF back to 100cc/hr.
-Cr up to 1.7 this morning.
-will transfer to IMU for higher level of care
-if BP remains low, would consider for initiation of pressors and IV amiodarone
-suspect also with acute CHF and will need eventual diuresis. proBNP 3740, weight is up and O2 requirements increased overnight
-[id number] score of 4 for age, female, HTN. discussed OAC with patient. given ileus surgery would like to hold off on OAC at present. will start when ok from surgical standpoint. hgb 11.4.
-in setting of recent surgery and PAF, if does not improve, would consider PE as possibility
-TSH 1.3
-reviewed results of echo with patient, EF preserved with mild to mod which will need OP follow up with serial echo.
-remains on OP norvasc/diovan, presently on hold, however could consider de-escalating if additional rate control needed
-d/w nursing. d/w hospitalist via TT
-CCT 31 minutes
History of Present Illness 04/12/2025:
Ms. Rodríguez is a very pleasant 84-year-old female who is status post sigmoid colon resection with takedown after small bowel obstruction and colonic stricture. It appears that we were consulted in 2014 for bronchitis x 1 and also an echocardiogram
in the system read by Dr. Maurice in 2023 demonstrating mild aortic stenosis peak mean gradient 30/16. She examines to a midsystolic murmur without blunted S2 and tolerated her procedure well. She is taking p.o.'s although overnight did have
atrial fibrillation with rapid ventricular response which was relatively asymptomatic and is currently seen in sinus rhythm on an IV Cardizem drip with stable vital signs. Normal ejection fraction was noted in 2023
Progress Note - National Sales
Subjective
Date of Service: April 16, 2025
reports feeling very tired and dizzy with any movement
Objective
Labs:
04/16/25 07:00
Labs
Hgb 11.4 g/dL (12.0-16.0) L 04/16/25 07:00
Hct 35.6 % (37.0-47.0) L 04/16/25 07:00
Plt Count 252 10^3/uL (130-400) 04/16/25 07:00
PT 15.5 Sec (11.4-14.6) H 04/10/25 08:54
INR 1.20 04/10/25 08:54
APTT 30.8 Sec (23.4-35.0) 04/10/25 08:54
Sodium 136 mmol/L (135-145) 04/16/25 07:00
Potassium 5.4 mmol/L (3.5-5.1) H 04/16/25 07:00
BUN 32 mg/dl (7-17) H 04/16/25 07:00
Creatinine 1.7 mg/dL (0.6-1.0) H 04/16/25 07:00
Glucose 49 mg/dl (70-99) L* 04/16/25 07:00
Vital Signs and I&O:
Vital Signs
Temp Pulse Resp BP Pulse Ox
98.0 F 71 16 104/46 98
04/16/25 07:00 04/16/25 09:39 04/16/25 07:42 04/16/25 09:39 04/16/25 07:42
Vital Signs
Temp Pulse Resp BP Pulse Ox
98.0 F 71 16 104/46 98
04/16/25 07:00 04/16/25 09:39 04/16/25 07:42 04/16/25 09:39 04/16/25 07:42
Intake & Output
04/14/25 04/15/25 04/16/25 04/17/25
07:59 07:59 07:59 07:59
Intake Total 920 / 920 897 / 1137 1515 / 1515
Output Total 200 / 200 500 / 500
Balance 720 / 720 397 / 637 1515 / 1515
Physical Exam
Physical Exam
GEN: No distress, awake, lethargic, oriented x3. breathing appears labored
HEENT: supple, anicteric, mmm, eomi
LUNGS: Crackles B/L bases, no wheezes
CV: Reg, S1/S2, no murmur
ABD: soft, BS+, NT/ND
EXT: No cyanosis, clubbing. 1+ edema of B/L UE, trace of B/L LE
NEURO: Gross non-focal
SKIN: Warm, pink, dry. No rash
: cardenas
--- NOTE | 2025-04-16 11:25 | PTCARENOTE ---
PCT notified this RN of low blood pressure. Manual BP obtained. 69/40. LADAN Ledbetter, at bedside. Verbal orders gievn to d/c cardizem gtt and increase IVF to 100cc/hr. Transfer to higher level of care. Manual BP taken again. 78/36. Sinus rhthm
on the monitor. HR remains in the 60's. Dr. Snider at bedside. Care ongoing.
[2025-04-16 11:26] LABS: Glucose - Point of Care 82 mg/dl (70-99)
[2025-04-16] MEDS: CORDARONE 518 MG IV (12:31)
--- NOTE | 2025-04-16 12:36 | W.PN.HOSP.TC ---
Today's Communication/Plan
-
IVF
Amiodarone drip (Cardizem drip stopped)
IMU tx
Assessment / Plan
Assessment / Plan
Assessment:
Acute diarrheal illness with volume depletion likely secondary to Sigmoid colon stricture causing partial SBO
Severe stenosis sigmoid colon with Moderate stool rectosigmoid colon on colonoscopy 04/08/2025
Diverticulitis Hx
- CT: wall thickening involving the proximal sigmoid colon which may be related to reported mass/stricture. fluid present throughout the colon as well as mild distention of the cecum/ascending colon.
- CRS following; s/p ex-lap with sigmoidectomy, DEVYN, splenic flexure takedown 04/10/25
- diet: regular
- pain control, anti-emetics
- recurrent nausea 04/14 into 04/15, repeat CT with dilated loops of bowel concerning for ileus
- CRS following; NPO/IVF. meds via IV as able
- f/u AXR: Re-demonstration of multiple dilated small bowel loops, overall similar appearance compared to the prior CT suggestive of an ileus. Small bowel contrast seen within distal colon
New onset MAHENDRA
- likely in setting of ileus, hypotension
- continue IVF
- bladder scans/SC protocol
Recurrent parox A.fib/flutter
- s/p Cardizem drip; drip held now to hypotension
- IV amiodarone now added
- Cardio following
- Anticoagulation when cleared by surgery. [id number] score of 4 for age, female, HTN
- Echo 04/13/2025: EF 60%. Mild LVH. Mild to moderate with peak/mean gradient 32/18 mmHg, mild AR. PAP 47 mmHg. Findings similar to prior echo in April 2024
Acute CHF
- diuresis when able
Acute on Chronic Hypoxic Insufficiency/Respiratory Failure
COPD baseline on chronic 2 L nasal cannula at bedtime and with ambulation
Former smoker quit age 33
Idiopathic pulmonary fibrosis
- Continue inhalers, continue Singulair
- suspect post-anesthesia residual sided effects
- incentive spirometer
- wean O2 supplementation as tolerated; currently on 4L NC
Hypokalemia
Hypocalcemia
- monitor and replete as necessary.
Metabolic Acidosis Resolved
- low dose bicarb PO supplementation completed
Osteoarthritis on chronic Oral opiates
- cont pain control as per surgeon, recent surgery as above, scheduled Toradol Tylenol prn oxycodone Dilaudid
Osteoporosis
Spondylosis lumbar sacral spine
- Patient is on Prolia every 6 months
- Continue vitamin D
Hypothyroidism
- continue levothyroxine 100 mcg daily
HTN
- continue amlodipine 10 mg daily, valsartan 320 mg daily with hold parameters
- continue Coreg with hold parameters
Chronic mild cognitive impairment
- Oriented to name, place, president, history is somewhat forgetful short-term
Nonrheumatic aortic valve stenosis
Depression
- No reported meds
Balance disorder
Chronic bilateral lower extremity edema
- PT/OT evals- SNF recommended
Reported hx GERD
- no current meds
Reported hx HLD
- No current meds
History of left-sided breast cancer 2022 was on former letrozole
Reported hx Overactive bladder
- no current meds
DVT prophylaxis: SCDs
Code: Full
Dispo: Tx to IMU floor. May need pressors.
Total Critical Care Time 41 minutes. I was immediately available to the patient and staff. I personally examined, reviewed labs, diagnostic images/reports, interpretations, treatment plans, discussed patient care with other providers and family
or caregivers (if patient is unable to make decisions), entered orders as appropriate and documented the medical record.
Anticipated Discharge: > 48 hours
Subjective/Interval History
-
Date of Service: April 16, 2025
rapid Afib yesterday requiring IV Cardizem drip; this AM hypotensive, hypoglycemic requiring IVF reinitiation
also 4L NC
lethargy
Objective Data
-
Labs:
Laboratory Results
04/16/25 04/16/25
07:00 14:00
WBC 10.6
Hgb 11.4 L
Hct 35.6 L
Plt Count 252
Sodium 136 Pending
Potassium 5.4 H Pending
Chloride 107 Pending
Carbon Dioxide 24 Pending
BUN 32 H Pending
Creatinine 1.7 H Pending
Glucose 49 L* Pending
Calcium 8.0 L Pending
Total Bilirubin 0.9
AST 32
ALT 28
Alkaline Phosphatase 89
Vital Signs:
Vital Signs
Temp Pulse Resp BP Pulse Ox
98.0 F 67 16 80/48 94
04/16/25 07:00 04/16/25 11:37 04/16/25 07:42 04/16/25 11:37 04/16/25 09:30
I&O
04/15/25 04/16/25 04/17/25
06:59 06:59 06:59
Intake Total 897 / 897 1515 / 1515
Output Total 500 / 500
Balance 397 / 397 1515 / 1515
Physical Exam
-
General: Respiratory Distress (mild)
HEENT: Normocephalic and Atraumatic
Respiratory: Crackles (faint)
Cardiac: Irregular Rhythm
GI: Soft and Nontender
Musculoskeletal: No Edema
Neuro: AO x 3
Psych: Calm
Data Reviewed
-
Critical Care Time (in minutes): 41
Labs: Labs Reviewed by me
[2025-04-16] MEDS: PHATP 1 UNIT PO (13:37)
--- NOTE | 2025-04-16 13:54 | PN.CDI ---
CDI
- -
CDI:
Physician Documentation Request
Admit Date: 04/09/25 19:26
Dear Doctor Tylor,
Patient admitted for bowel obstruction.
04/16 Cardiology PN: 'Echo 04/13/2025: EF 60%. Mild LVH.'
04/16 Hospitalist PN: 'Acute CHF - diuresis when able'
Please provide further specificity regarding the most likely type of CHF you are evaluating, treating or monitoring.
Type
Systolic
Diastolic
Combined Systolic/Diastolic
Other
Unable to Determine
Use of terms such as suspected, likely, concern for, or probable (associated with a specific diagnosis that is being evaluated, monitored, or treated as if it exists) are acceptable and can be coded in the inpatient setting, when documented at the
time of discharge.
Thank you,
Rima Lamas RN, BSN
CDI Specialist
Available via [place] text
Please use your independent medical judgment in providing your response.
[2025-04-16 14:03] LABS: APTT 43.8 Sec (23.4-35.0)
[2025-04-16 14:25] LABS: Blood Urea Nitrogen 36 mg/dl (7-17); Calcium 7.6 mg/dl (8.4-10.2); Carbon Dioxide 19 mmol/L (22-30); Chloride 110 mmol/L (98-107); Estimated Creatinine Clearance 18 ml/min; Glucose 132 mg/dl (70-99); Potassium 5.0 mmol/L (3.5-5.1); Sodium 135 mmol/L (135-145); eGFR 25.40
[2025-04-16] MEDS: LEVOPHED 250 IV ×3 (14:25→20:15)
--- NOTE | 2025-04-16 14:43 | PTCARENOTE ---
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 Pt lethargic on 14mcg/min Norepinephrine via right FA#22g IV. Left fa #22g with NSS 500ml fluid bolus. D5NS @ 100ml/hr via right fa IV. Weak peripheral pulses, +2-3 anasarca. Knee-hi SCD's, Lungs
with fine bibasilar crackles 1/2 up bilaterally. Pulse ox 95% on 2 liters nasal cannula. Afib 68. Absent BSX4. Denies nausea. Abdominal incision DANI with anat intact. Scabbed & approximated. Longoria with dark amanda urine. Sacrum with linear stage
II and irregular stage II open area on coccyx. Cleansed, skin barrier and silicone border dressings applied. She was informed of the plan of care and the use of the call wright. Safe environment maintained. Will continue to monitor. Dr. Loaiza and
Dr. Snider at the bedside reviewing the plan of care. Safe environment maintained.
[2025-04-16 14:44] LABS: Glucose - Point of Care 101 mg/dl (70-99)
--- NOTE | 2025-04-16 14:49 | PTCARENOTE ---
vital signs cannot be verified prior to admission to ICU
--- NOTE | 2025-04-16 14:55 | CON.INTV ---
Consultation
Consultation Request
Date/Time Consultation Requested: 04/16/2025 - 1430
Date/Time Consultation Performed: 04/16/2025 - 1440
Requesting Provider: Dr. Snider
Performing Provider: Dr. Loaiza
Reason for Consultation: Shock
Medical History
-
Chief Complaint: Diarrhea, reduced appetite, nausea and abdominal cramping/discomfort
History of Present Illness:
84-year-old female with a past medical history of IPF, chronic cough, stage I left-sided breast cancer, hypothyroidism, history of diverticulitis, GERD, and hypertension who presented with painful loose bowel movements. She had a colonoscopy 2 days
prior to the symptoms, which was performed on 04/08/[address] Lares with surgery. Preparation of the colon was poor and there was a benign-appearing intrinsic severe stenotic area measuring unknown length in the sigmoid colon at 30 cm from the
verge and it was not traversed. She has chronic diverticular disease with bowel wall thickening seen on imaging: Back to at least August 2018. She had followed with surgery in the office with last visit with Dr. Lares on 03/23/2025. Patient had
a repeat CT abdomen/pelvis on 04/2025 showing wall thickening around the proximal sigmoid colon which may be related to a mass/stricture with fluid throughout the colon and distention of the cecum/ascending colon. Patient was initially admitted to
[facility] with colorectal surgery consulted. Initial labs showed potassium 3.4, creatinine 0.8, WBC 9.5, and she had a C. difficile stool study that was negative unless mentioned above, as was her stool culture that was sent on 04/09. Considering
patient had continued abdominal cramping/discomfort with frequent loose stools, reduced appetite and nausea, she was consented for surgical intervention and on 04/10/2025 she had an exploratory laparotomy with lysis of adhesions, sigmoidectomy,
takedown of the splenic flexure and repair of serosal injury with a TAP block. EBL was 100 cc, and intraoperative findings showed a thickened and chronically inflamed sigmoid colon which was densely adherent to the left pelvic sidewall. Of note,
there was an incorrect needle count during this case. Postoperatively, she developed atrial flutter on 04/12 and spontaneously converted back to sinus rhythm. Patient was continued on IV fluids given low oral intake. On 04/14, she had episode of
vomiting with a liquid bowel movement and passing very little flatus. CT abdomen/pelvis was repeated on 04/15 showing dilation of the small bowel loops with no discrete transition point, concerning for ileus versus early SBO. Decision made to keep
her NPO and not insert NGT. Patient then developed another episode of A-fib with RVR on 04/15 although remained asymptomatic with no palpitations. Cardizem drip was started and she converted back into sinus rhythm. Amiodarone was started on
04/16/2025 by cardiology to maintain NSR. She unfortunately then became hypotensive and her BP meds (Coreg, losartan and Norvasc) were held and she was transferred to IMU for vasopressors. Levophed requirements continued to increase and she was
transferred here to the ICU and nutrition club ambassador services consulted for additional management/recommendations.
When I saw the patient, the amiodarone had been stopped due to hypotension. She was minimally responsive. She was on 18 mcg/min of Levophed. I performed bedside ultrasound and her IVC was plump with A-line predominant pattern on her lungs
bilaterally. Four-chamber view of the heart showed a mildly reduced LVEF with no evidence of D sign and mildly reduced RV contractility. No pericardial effusion seen.
PMHx: Chronic cough, IPF, restrictive lung disease, stage Ia carcinoma of left breast (2013) s/p lumpectomy, osteoarthritis, hypothyroidism, history of diverticulitis, hypertension, osteoporosis, GERD, Hx of left THR S. lugdenesis treated with
chronic antibiotics, history of pinkeye (03/26/2021)
PSHx: Cholecystectomy, total hysterectomy, left breast lumpectomy with sentinel lymph node biopsy (09/23/2013), left CEE (2014), lower back surgery (08/2017), right ring finger surgery, Mohs surgery of left nostril with graft
Past Medical History
Past Medical History: Other (Above as per HPI)
Past Surgical History: Other (Above as per HPI)
Social History
Tobacco: Former Smoker (Quit >40 years ago)
Alcohol: None
Drug: None
Family History
Family History: Other (Father + mother: Cardiac history)
Allergies / Home Medications
Allergies
Allergy/AdvReac Type Severity Reaction Status Date / Time
gage Allergy ROSES-Seasonal' Verified 04/09/25 18:49
watery
eyes,sore
throat,
sneezing ,
itching.
grass pollen Allergy Seasonal' Verified 04/09/25 18:49
watery
eyes,sore
throat,
sneezing ,
itching.
house dust Allergy Seasonal' Verified 04/09/25 18:49
watery
eyes,sore
throat,
sneezing ,
itching.
mold Allergy Seasonal' Verified 04/09/25 18:49
watery
eyes,sore
throat,
sneezing ,
itching.
tree and shrub pollen Allergy Seasonal' Verified 04/09/25 18:49
watery
eyes,sore
throat,
sneezing ,
itching.
Home Medications
�Medication �Instructions �Recorded �Confirmed �Last Taken �Type
albuterol sulfate 90 mcg/actuation 2 puff inhalation PRN PRN sob 11/23/14 04/09/25 03/23/15 14:30 History
aerosol inhaler
amlodipine 10 mg-valsartan 320 mg 1 tab PO DAILY Blood Pressure 11/23/14 04/09/25 04/09/25 09:00 History
tablet (Exforge)
fluticasone propionate 50 2 spray intranasal DAILY 11/23/14 04/09/25 04/08/25 09:00 History
mcg/actuation nasal Lung/Breathing Issues
spray,suspension
cholecalciferol (vitamin D3) 25 1,000 unit PO DAILY Supplement 02/24/15 04/09/25 02/23/15 History
mcg (1,000 unit) capsule (Vitamin
D3)
acetaminophen 325 mg tablet 650 mg (2 x 325 mg) PO Q4HPRN PRN 03/28/15 04/09/25 Unknown Rx
pain ##0
Advair Diskus 1 inh inhalation BID AT 0800,1600 04/09/25 04/09/25 04/09/25 09:00 History
Lung/Breathing Issues
levothyroxine 100 mcg tablet 100 mcg PO DAILY Thyroid 04/09/25 04/09/25 04/09/25 08:00 History
oxycodone 5 mg tablet 5 mg PO BIDPRN PRN mod pain 04/09/25 04/09/25 Unknown History
Review of Systems
-
Unable to Obtain full review of systems at this time due to: Acuity
Vitals / Labs / Diagnostic Testing
Vital Signs
Temp Pulse Resp BP Pulse Ox
97.9 F 70 26 95/43 95
04/16/25 15:26 04/16/25 15:30 04/16/25 15:30 04/16/25 15:30 04/16/25 15:30
Lab Data
04/16/25 16:44
04/16/25 16:44
Laboratory Results
04/16/25
13:35
PT 17.5 H
INR 1.38
APTT 43.8 H
Diagnostic Testing:
Physical Exam
-
HEENT: Normocephalic and Anicteric
Cardiovascular: Irregular Rhythm (Irregularly irregular) and Peripheral Edema (negative)
Respiratory: Wheeze (negative), Rales (Bilaterally), Rhonchi (negative) and Non-Labored Respirations
GI: Soft, Distended, Non Tender and Normal Bowel Sounds
Neurology: Tremors (negative) and Other (Minimally responsive)
Skin: Warm and Dry
General: Respiratory Distress (negative), Fever (negative) and Chills (negative)
Assessment
-
Assessment: 84-year-old female with a past medical history of IPF, chronic cough, stage I left-sided breast cancer, hypothyroidism, history of diverticulitis, GERD, and hypertension who presented with painful loose bowel movements. She had a
colonoscopy 2 days prior to the symptoms, which was performed on 04/08/[address] Lares with surgery. Preparation of the colon was poor and there was a benign-appearing intrinsic severe stenotic area measuring unknown length in the sigmoid colon at
30 cm from the verge and it was not traversed. She has chronic diverticular disease with bowel wall thickening seen on imaging: Back to at least August 2018. She had followed with surgery in the office with last visit with Dr. Lares on
03/23/2025. Patient had a repeat CT abdomen/pelvis on 04/2025 showing wall thickening around the proximal sigmoid colon which may be related to a mass/stricture with fluid throughout the colon and distention of the cecum/ascending colon. Patient
was initially admitted to [facility] with colorectal surgery consulted. Initial labs showed potassium 3.4, creatinine 0.8, WBC 9.5, and she had a C. difficile stool study that was negative unless mentioned above, as was her stool culture that was sent
on 04/09. Considering patient had continued abdominal cramping/discomfort with frequent loose stools, reduced appetite and nausea, she was consented for surgical intervention and on 04/10/2025 she had an exploratory laparotomy with lysis of adhesions,
sigmoidectomy, takedown of the splenic flexure and repair of serosal injury with a TAP block. EBL was 100 cc, and intraoperative findings showed a thickened and chronically inflamed sigmoid colon which was densely adherent to the left pelvic
sidewall. Of note, there was an incorrect needle count during this case. Postoperatively, she developed atrial flutter on 04/12 and spontaneously converted back to sinus rhythm. Patient was continued on IV fluids given low oral intake. On 04/14, she
had episode of vomiting with a liquid bowel movement and passing very little flatus. CT abdomen/pelvis was repeated on 04/15 showing dilation of the small bowel loops with no discrete transition point, concerning for ileus versus early SBO. Decision
made to keep her NPO and not insert NGT. Patient then developed another episode of A-fib with RVR on 04/15 although remained asymptomatic with no palpitations. Cardizem drip was started and she converted back into sinus rhythm. Amiodarone was
started on 04/16/2025 by cardiology to maintain NSR. She unfortunately then became hypotensive and her BP meds (Coreg, losartan and Norvasc) were held and she was transferred to IMU for vasopressors. Levophed requirements continued to increase and
she was transferred here to the ICU and nutrition club ambassador services consulted for additional management/recommendations.
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 lugdenesis
treated with chronic antibiotics, history of pinkeye (03/26/2021)
Impression:
#Circulatory shock with concern for sepsis
#A-fib with RVR (patient has no prior history of this before this current hospitalization)
#Severe sigmoid stenosis s/p ex lap with lysis of adhesions, sigmoidectomy, takedown of splenic flexure and repair of serosal injury with TAP block (OR date: 04/10/2025) - path of rectosigmoid showed acute diverticulitis with pericolonic abscess
formation and viable resection margins
#Small bowel dilatation due to ileus vs early SBO (per CT abdomen/pelvis on 04/15/2025 due to abdominal distention + episode of vomiting)
#Anemia
#MAHENDRA
#Hypoglycemia
#IPF on Ofev
#Restrictive lung disease due to IPF
#Former tobacco smoker (quit >40 years ago)
Plan:
- Given the patient's circulatory shock and AMS, need to start broad-spectrum antibiotics
- Considering that she is minimally responsive, need to consider aspiration pneumonia as the cause of her current shock state, although CXR mainly shows low lung volumes with background interstitial fibrosis with retrocardiac opacification
- Check UA, blood Cx and obtain sputum Cx (if decent sample can be suctioned/obtained), and then start Zosyn
- Pt is MRSA negative on 04/10/2025 so no need for IV vanco at this time
- No pericardial effusion on bedside echo and I felt that her LVEF was mildly reduced with reduction in RV contractility
- Seems that her BP dropped an hour or two after amiodarone was started --> keep amiodarone off for now
- Her IVC on bedside US is plump with minimal respiratory variation, hence would not give more than another 1L due to risk of volume overload
- Re-check official echo given her deterioration
- Goal HR<110; cardiology on board and recommendations appreciated
- Hold anti-hypertensives for now
- Continue vasopressors, currently on levophed, however may need to change to neosynephrine if HR remains uncontrolled
- Goal MAP>65
- heparin gtt if ok with surgery given her A fib
- Replete electrolytes with K>4, Mg>2
- Maintain SpO2 >90-94% with supplemental oxygen, weaning down as tolerated
- Check ABG given her unresponsive state; of note she is DNR/DNI; if she is hypercapnic then would start NIV vs BiPAP
- Patient is on Advair diskus 250mcg as an outpatient however while hospitalized we will continue with atrovent + budesonide; hold off on albuterol given her rapid A-fib
- prn nebulized bronchodilators - not currently bronchospastic
- Maintain euglycemia with goal BG 140-180; check A1C
- Trend H/H and transfuse if needed to keep Hb>7-8g/dL; keep plt>20k, unless there is concern for bleeding then keep plt>50k
- Keep NPO for now given AMS; transition PO meds to IV for now given her high aspiration risk for PO meds
- Start PPI for stress ulcer ppx
- DVT ppx: recommend to start heparin gtt
Code status: Now DNR/DNI
Continue ICU level of care for this critically ill patient
Critical care statement: A total of 43 minutes of critical care time was provided for this patient today. This includes management of unstable vital signs, evaluation of the patient at bedside, reviewing the patient's pertinent medical records
including radiographs, microbiology, laboratory evaluations, and discussion with primary team, consultants, pharmacy, nutrition, physical therapy, case management, charge nurse, critical care nursing, and respiratory therapy.
[2025-04-16 15:02] LABS: Glucose - Point of Care 101 mg/dl (70-99)
[2025-04-16 15:34] LABS: Magnesium 1.8 mg/dl (1.6-2.3)
--- NOTE | 2025-04-16 15:34 | W.PN.UPDATE ---
Update Note
Progress Note Update
Rapid response called 232 AM
patient with hypotension in 70s, Levophed started via peripheral IV. Notified by RN that Amio stopped
1L bolus ordered
Stat ICU transfer
in ICU, Levophed at 18
PICC team urgently called in
IV Heparin to start - d/w Colorectal service
cardiology service notified; will look to resume Amiodarone
d/w medical POA and friend Eric Jiménez - reviewed advanced directives. Patient is now DNR/DNI status - updated.
Total Critical Care Time 41 minutes. I was immediately available to the patient and staff. I personally examined, reviewed labs, diagnostic images/reports, interpretations, treatment plans, discussed patient care with other providers and family
or caregivers (if patient is unable to make decisions), entered orders as appropriate and documented the medical record.
--- NOTE | 2025-04-16 15:39 | PTCARENOTE ---
Received pt @ 1443 from IMU d/t increasing vasopressor support w/pt in controlled afib. + 1-2 anasarca. Knee-hi scd's. She appears ill. Eyes opened and responds to simple questions. Prio to transfer IMU RN turned of Amiodarone drip d/t
hypotension w/increasing vasopressor support. Norepinephrine @18mcg/min, with 500ml 0.9nss bolus @ 250ml/hr. via right FA#22g protective catheter. Left FA # 22g protective catheter flushed and patent. Awaiting VAT for PICC placement. Dr. Loaiza
and Dr. Snider are at the bedside discussing the plan of care. Poor capillary refill & skin turgor. She is pale with overall dry skin. Left forearm with blue ecchymotic area. Sacrum with 0.7 X 1.3 cm stage II with surrounding skin blanchable, linear
2.2cm stage II in gluteal cleft, also with surrounding skin blanchable. Skin barrier applied and silicon border foam dressing applied. Abdominal incision DANI with anat. Absent BSX4. Pt denies abdominal pain or nausea. Indwelling Longoria catheter
with dark amanda urine with sediment intact. She was informed of the plan of care regarding insertion of PICC due to vesicant medications, turning and repositioning and treating afib. She nodded her head in understanding. Safe environment maintained.
[2025-04-16 15:47] LABS: INR 1.38; PT 17.5 Sec (11.4-14.6)
--- NOTE | 2025-04-16 16:10 | PTCARENOTE ---
Bing MANZO aware that she is now in NSR 70 & that her magnesium was 1.8. Will restart the amiodarone drip when IV team is done placing the PICC currently.
--- NOTE | 2025-04-16 16:14 | RR ---
A Rapid Response was called on this patient at 1430 please see Rapid Response form.
[2025-04-16 17:11] LABS: Hematocrit 34.3 % (37.0-47.0); Hemoglobin 10.7 g/dL (12.0-16.0); Mean Corp Hgb Conc. 31.2 g/dL (33.0-37.0); Mean Corpuscular Volume 91.2 fL (81.0-99.0); Platelet Count 249 10^3/uL (130-400); Red Cell Dist. Width 15.1 % (11.5-14.5)
[2025-04-16 17:16] LABS: ALT (SGPT) 28 U/L (0-35); AST (SGOT) 34 U/L (14-36); Albumin 2.3 g/dl (3.5-5.0); Alkaline Phosphatase 82 U/L (38-126); Blood Urea Nitrogen 35 mg/dl (7-17); Calcium 7.3 mg/dl (8.4-10.2); Carbon Dioxide 24 mmol/L (22-30); Chloride 107 mmol/L (98-107); Estimated Creatinine Clearance 15 ml/min; Glucose 125 mg/dl (70-99); Potassium 5.1 mmol/L (3.5-5.1); Sodium 135 mmol/L (135-145); Total Protein 4.3 g/dl (6.3-8.2); eGFR 19.19
--- NOTE | 2025-04-16 17:19 | PTCARENOTE ---
@ 1618 glucose from femoral TL CVC was 90, PCT performed finger stick & glucose resulted 61, Chemistry resulted 72. No treatment for hypoglycemia was performed at this time. Pt responsive.
[2025-04-16] MEDS: ALBUMIN 5% 250 IV (17:38)
[2025-04-16 17:42] LABS: Troponin I 0.020 ng/ml
[2025-04-16] MEDS: HEPARIN 25000 UNITS/250 ML IV (17:52)
--- NOTE | 2025-04-16 18:37 | PTCARENOTE ---
L TL PICC placement verified & PIV site removed per protocol
--- NOTE | 2025-04-16 18:38 | W.PN.UPDATE ---
Update Note
Progress Note Update
Was notified by Dr. Snider that patient was declining hemodynamically this afternoon; she became hypotensive and tachypneic on the floor and was transferred to the ICU and started on levo; I was in my office off campus and asked my partner,
Ldua, to evaluate the patient; he told me that her abdomen was minimally tender without evidence of rebound or guarding and felt that abdominal source seemed less likely
I just saw and examined the patient; she was tachypneic and breathing in between words; she was alert and oriented x 3; she denied any chest pain, shortness of breath or abdominal pain; she denies any flatus or BMs; her abdomen was mildly distended
with tympany in the upper abdomen, but minimally tender near her midline incision without rebound or guarding; CXR demonstrating some pneumoperitoneum which I suspect is more likely expected postoperative air and not indicative of a new abdominal
process; there is bibasilar atelectasis
I discussed with Dr. Snider and Moreno Kramer, ICU GRADER GREEN [employer]. During my preoperative discussion with the patient, she did indicate that if any medical decisions were needed to be made because she was unable to make them for herself, she would want a
Eric Ledbetter to be the medical surrogate. She was made DNR this evening.
-Most likely source of septic shock is felt to be aspiration pneumonia. She was started on IV antibiotics. Echo showed normal EF without right-sided strain. Due to her A-fib and concern for possible DVT, she was started on a heparin drip. Will
continue NPO. If any nausea or vomiting, recommend placement of NGT. Called Eric Garcia on both numbers and unable to reach him.
[2025-04-16] MEDS: PITRESSIN 100 IV (19:44)
--- NOTE | 2025-04-16 19:51 | W.PN.UPDATE ---
Update Note
Progress Note Update
Procedure Note: Arterial Line�
� Left Wrist Arrow 20 (10/07)�
Diagnosis:��Sepsis
IV Line Comments: Uneventful Procedure�
Kenneth's test completed pre-procedure: Yes�
A-Line Comments: Sterile technique as per standard protocol, Ultrasound guided insertion�
Functioning A-line in situ: Yes�
A-line Insertion Start Time:�1929�
A-line in at:��1944
[2025-04-16] MEDS: ZOSYN 50 IV (20:12)
[2025-04-16 20:13] LABS: B.E. -8.1 mmol/L; HCO3 21.6 mmol/L (21-28); O2 Saturation % 99.8 % (94-98); PCO2 65 mmHg (32-35); PO2 206 mmHg (83-108); Potassium 5.4 mMOL/L (3.5-5.1); Sodium 131 mMOL/L (136-145)
[2025-04-16] MEDS: COREG PO (20:35)
[2025-04-16] MEDS: CALCIUM CHLORIDE 10% SYRINGE 60 MG IV (20:40)
[2025-04-16 20:43] LABS: Blood Urea Nitrogen 38 mg/dl (7-17); Calcium 7.2 mg/dl (8.4-10.2); Carbon Dioxide 21 mmol/L (22-30); Chloride 107 mmol/L (98-107); Glucose 153 mg/dl (70-99); Potassium 5.3 mmol/L (3.5-5.1); Sodium 135 mmol/L (135-145)
[2025-04-16 20:50] LABS: Estimated Creatinine Clearance 17 ml/min; eGFR 22.52
[2025-04-16] MEDS: NON-FORMULARY ITEM INH (21:00)
[2025-04-16] MEDS: LEVOPHED 258 MG IV (22:28)
[2025-04-16 23:42] LABS: B.E. -9.8 mmol/L; HCO3 18.9 mmol/L (21-28); O2 Saturation % 99.2 % (94-98); PCO2 53 mmHg (32-35); PO2 106 mmHg (83-108)
[2025-04-16 23:59] LABS: APTT 70.5 Sec (23.4-35.0)
[2025-04-17] VITALS (16 sets, daily range): BP systolic 88–133; BP diastolic 42–68; PULSE 2–127; BMI 26.5
[2025-04-17] MEDS: ZOSYN 50 IV ×3 (01:28→17:43)
[2025-04-17] MEDS: DILAUDID 0.25 MG IV ×5 (01:28→19:52)
--- NOTE | 2025-04-17 01:53 | PTCARENOTE ---
At start of shift patients bp low, Levo max'ed, patient was started on Vasopressin. BP stabilized. Patient started on BiPap 12/5 with 5L o2, noted to be pulling on mask. B/L mitts ordered for pulling at tubes. Patient NSR on the monitor at start of
shift, +2 anasarca, weak radial and pedal pulses b/l. Overall assessment as documented. Catheter exchanged to obtain urine culture. Temp sensing catheter placed. Patient noted to have core temp of 94.6, MOTOR VEHICLE LICENCE EXAMINER notified and started on Stuart hugger.
Current core temp 96.8. Patients UO decreased, 10ml/hr. JOVANY Kramer updated. IVF D5/NS stopped earlier this shift.
RN at bedside, will continue to monitor patient closely.
[2025-04-17] MEDS: LEVOPHED 258 MG IV ×3 (02:44→15:12)
[2025-04-17] MEDS: PITRESSIN 100 IV ×3 (02:46→17:11)
[2025-04-17 03:34] LABS: Urine Character Cloudy (Clear)
[2025-04-17 03:44] LABS: Hematocrit 34.1 % (37.0-47.0); Hemoglobin 10.4 g/dL (12.0-16.0); Mean Corp Hgb Conc. 30.5 g/dL (33.0-37.0); Mean Corpuscular Volume 92.7 fL (81.0-99.0); Platelet Count 251 10^3/uL (130-400); Red Cell Dist. Width 15.0 % (11.5-14.5)
[2025-04-17 03:57] LABS: B.E. -10.0 mmol/L; HCO3 18.0 mmol/L (21-28); O2 Saturation % 96.9 % (94-98); PCO2 46 mmHg (32-35); PO2 82 mmHg (83-108)
--- NOTE | 2025-04-17 04:23 | PTCARENOTE ---
Patient remains on BiPap 12/5 with 5L o2. Urine output remains low, avg 10ml/hr, OVEREDGE MACHINE OPERATOR aware. Urine specimen obtained and sent to lab for UA. Stuart rivera in place, core temp 96.9, ranging between 96.6-97.2. RN remains bedside as patient remains in
b/l hand mitts for attempting to remove tubing/mask. Will continue to monitor.
[2025-04-17 04:43] LABS: Blood Urea Nitrogen 37 mg/dl (7-17); Calcium 7.8 mg/dl (8.4-10.2); Carbon Dioxide 18 mmol/L (22-30); Chloride 109 mmol/L (98-107); Glucose 94 mg/dl (70-99); Magnesium 1.8 mg/dl (1.6-2.3); Potassium 5.3 mmol/L (3.5-5.1); Sodium 135 mmol/L (135-145)
[2025-04-17] MEDS: SODIUM BICARBONATE 50 MEQ IV (05:09)
[2025-04-17 05:39] LABS: Urine Squamous Cell >30 /LPF (Few)
[2025-04-17 05:43] LABS: Urine Red Blood Cell 50-60 /HPF (0-2)
[2025-04-17 05:44] LABS: Urine White Cell 50-60 /HPF (0-5)
[2025-04-17] MEDS: CALCIUM CHLORIDE 10% SYRINGE 60 MG IV (05:45)
[2025-04-17 06:26] LABS: Estimated Creatinine Clearance 17 ml/min; eGFR 22.52
[2025-04-17 06:30] LABS: APTT 79.5 Sec (23.4-35.0)
[2025-04-17] MEDS: NON-FORMULARY ITEM INH ×2 (07:40→20:53)
[2025-04-17] MEDS: COREG PO (07:46)
[2025-04-17] MEDS: VITAMIN D3 (cholecalciferol) PO (07:47)
[2025-04-17] MEDS: PROTONIX IV 40 MG IV (07:52)
[2025-04-17] MEDS: NSS (PRESERVATIVE FREE) 10 ML IV (07:52)
--- NOTE | 2025-04-17 08:28 | W.PN.INTV ---
Today's Communication / Plan
Recommendations
Broad-spectrum antibiotics
Aspiration precautions
BiPAP while trending pH + pCO2
Can give break off BiPAP and use mid flow nasal cannula versus high flow, keeping SpO2 >90-94%
PPI
Levophed + vasopressin with goal MAP >[address] chest/abdomen/pelvis to evaluate for source of infection (Klebsiella pneumoniae seen on blood culture)
DNR/DNI
Continue ICU level of care for this critically ill patient
Assessment
-
Assessment: 84-year-old female with a past medical history of IPF, chronic cough, stage I left-sided breast cancer, hypothyroidism, history of diverticulitis, GERD, and hypertension who presented with painful loose bowel movements. She had a
colonoscopy 2 days prior to the symptoms, which was performed on 04/08/[address] Lares with surgery. Preparation of the colon was poor and there was a benign-appearing intrinsic severe stenotic area measuring unknown length in the sigmoid colon at
30 cm from the verge and it was not traversed. She has chronic diverticular disease with bowel wall thickening seen on imaging: Back to at least August 2018. She had followed with surgery in the office with last visit with Dr. Lares on
03/23/2025. Patient had a repeat CT abdomen/pelvis on 04/2025 showing wall thickening around the proximal sigmoid colon which may be related to a mass/stricture with fluid throughout the colon and distention of the cecum/ascending colon. Patient
was initially admitted to [facility] with colorectal surgery consulted. Initial labs showed potassium 3.4, creatinine 0.8, WBC 9.5, and she had a C. difficile stool study that was negative unless mentioned above, as was her stool culture that was sent
on 04/09. Considering patient had continued abdominal cramping/discomfort with frequent loose stools, reduced appetite and nausea, she was consented for surgical intervention and on 04/10/2025 she had an exploratory laparotomy with lysis of adhesions,
sigmoidectomy, takedown of the splenic flexure and repair of serosal injury with a TAP block. EBL was 100 cc, and intraoperative findings showed a thickened and chronically inflamed sigmoid colon which was densely adherent to the left pelvic
sidewall. Of note, there was an incorrect needle count during this case. Postoperatively, she developed atrial flutter on 04/12 and spontaneously converted back to sinus rhythm. Patient was continued on IV fluids given low oral intake. On 04/14, she
had episode of vomiting with a liquid bowel movement and passing very little flatus. CT abdomen/pelvis was repeated on 04/15 showing dilation of the small bowel loops with no discrete transition point, concerning for ileus versus early SBO. Decision
made to keep her NPO and not insert NGT. Patient then developed another episode of A-fib with RVR on 04/15 although remained asymptomatic with no palpitations. Cardizem drip was started and she converted back into sinus rhythm. Amiodarone was
started on 04/16/2025 by cardiology to maintain NSR. She unfortunately then became hypotensive and her BP meds (Coreg, losartan and Norvasc) were held and she was transferred to IMU for vasopressors. Levophed requirements continued to increase and
she was transferred here to the ICU and procurement professional logistics services consulted for additional management/recommendations.
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 lugdenesis
treated with chronic antibiotics, history of pinkeye (03/26/2021)
Impression:
#Circulatory shock with concern for sepsis
#Acute hypercapnic respiratory failure with CO2 narcosis
#A-fib with RVR (patient has no prior history of this before this current hospitalization)
#Severe sigmoid stenosis s/p ex lap with lysis of adhesions, sigmoidectomy, takedown of splenic flexure and repair of serosal injury with TAP block (OR date: 04/10/2025) - path of rectosigmoid showed acute diverticulitis with pericolonic abscess
formation and viable resection margins
#Small bowel dilatation due to ileus vs early SBO (per CT abdomen/pelvis on 04/15/2025 due to abdominal distention + episode of vomiting)
#Anemia
#MAHENDRA
#Hypoglycemia
#IPF on Ofev
#Restrictive lung disease due to IPF
#Former tobacco smoker (quit >40 years ago)
Plan:
- Given the patient's circulatory shock and AMS, continue broad-spectrum antibiotics with Zosyn (started 04/16)
- Considering that she was minimally responsive on arrival to ICU on 04/16, need to consider aspiration pneumonia as the cause of her shock state; CXR showed low lung volumes with background interstitial fibrosis with retrocardiac opacification
- UA is abnormal and is possible source of sepsis --> follow up urine Cx; blood Cx is growing Klebsiella pneumoniae --> follow up sensitivities; obtain sputum Cx (if decent sample can be suctioned/obtained)
- Given that there could be an intra-abdominal source for her sepsis, ideally want to check a CT chest/abd/pelvis, although she would not want to undergo surgery again if needed (patient discussed this with surgery this AM and she replied no when
they asked if she needed surgery again would she want that)
- Pt is MRSA negative on 04/10/2025 so no need for IV vanco at this time
- No pericardial effusion on bedside echo and I felt that her LVEF was mildly reduced with reduction in RV contractility ---> official echo shows LVEF 55-60% with mildly reduced RV function and PASP 42 mmHg with mild AI + mild MR
- Seems that her BP dropped an hour or two after amiodarone was started --> this may be due to underlying sepsis with drop in cardiac output
- Her IVC on bedside US from 04/16 was plump with minimal respiratory variation, hence I would be careful giving additional IVF given risk of volume overload
- Goal HR<110; cardiology on board and recommendations appreciated
- Hold anti-hypertensives for now
- Continue vasopressors, currently on levophed + vasopressin, however may need to change to neosynephrine if HR remains uncontrolled
- Goal MAP>65
- heparin gtt
- Replete electrolytes with K>4, Mg>2
- Continue with BiPAP and okay to give break today using mid flow nasal cannula, possibly-his cannula if saturations are <90%, with resumption of BiPAP with sleep tonight or sooner if needed
- Trend pH and pCO2 with serial blood gasses
- Of note she is DNR/DNI
- Patient is on Advair diskus 250mcg as an outpatient --> continue Advair while on BiPAP, otherwise can use atrovent + budesonide; hold off on albuterol given her rapid A-fib
- prn nebulized bronchodilators - not currently bronchospastic
- Maintain euglycemia with goal BG 140-180; A1C: 5.2 on 04/17/2025
- Trend H/H and transfuse if needed to keep Hb>7-8g/dL; keep plt>20k, unless there is concern for bleeding then keep plt>50k
- Keep NPO for now given AMS; transition PO meds to IV for now given her high aspiration risk for PO meds
- Continue ofev
- PPI for stress ulcer ppx
- DVT ppx: heparin gtt
Code status: Now DNR/DNI
Continue ICU level of care for this critically ill patient
Critical care statement: A total of 38 minutes of critical care time was provided for this patient today. This includes management of unstable vital signs, evaluation of the patient at bedside, reviewing the patient's pertinent medical records
including radiographs, microbiology, laboratory evaluations, and discussion with primary team, consultants, pharmacy, nutrition, physical therapy, case management, charge nurse, critical care nursing, and respiratory therapy.
Subjective Dataa
Subjective Data
Date of Service:
Date of Service: April 17, 2025
Chief Complaint: Desktop Architect Follow Up
Subjective:
Patient was seen and evaluated this morning. On BiPAP this morning. Waking up and following commands, which is a large difference compared to yesterday. She does complain of left lower quadrant abdominal pain. Currently on Levophed at 16mcg/min,
vasopressin at 0.04 units/min and amiodarone at 0.5 mg/min. Also on heparin gtt. Heart rate 116, saturating 97% BP 119/62.
Review of Systems
General: Other (Negative unless mentioned above)
Objective Data
Data Reviewed
Vital Signs / I&O / Oxygen:
Vital Signs
Temp Pulse Resp BP Pulse Ox
97.9 F 111 35 119/62 97
04/17/25 10:45 04/17/25 09:40 04/17/25 09:40 04/17/25 08:00 04/17/25 09:40
Intake and Output
04/16/25 04/17/25 04/18/25
06:59 06:59 06:59
Intake Total 1515 / 1515 3128.7 / 3203.2 319.9 / 319.9
Output Total 485 / 535 155 / 155
Balance 1515 / 1515 2643.7 / 2668.2 164.9 / 164.9
SaO2 97
Nasal Cannula flow liters per 5
minute
Physical Exam
General: Respiratory Distress (negative), Comfortable and Chills (negative)
HEENT: Normocephalic, Anicteric and Other (BiPAP full face mask attached with good seal)
Cardiovascular: Irregular Rhythm (Irregularly irregular) and Peripheral Edema (+1 LE edema b/l)
Respiratory: Wheeze (negative), Crackles (Bilaterally/Velcro-like), Rhonchi (negative) and Non-Labored Respirations
GI: Soft, Non Distended, Non Tender and Normal Bowel Sounds
Neurology: Tremors (negative) and Lethargic (Easily arousable to voice and tactile stimulation and answering questions appropriately)
Skin: Warm, Dry, Cyanosis (negative) and Jaundice (negative)
Labs/Micro/Reports
Lab Data
04/17/25 03:23
04/17/25 03:23
Laboratory Results
0904/16/25 04/16/25
13:35 20:06 20:58
PT 17.5 H
INR 1.38
APTT 43.8 H
pH 7.13 L* Cancelled
pCO2 65 H Cancelled
pO2 206 H Cancelled
HCO3 21.6 Cancelled
O2 Delivery Level Cancelled
04/16/25 04/17/25 04/17/25
23:35 03:23 06:10
PT
INR
APTT 70.5 H 79.5 H
pH 7.16 L* 7.20 L
pCO2 53 H 46 H
pO2 106 82 L
HCO3 18.9 L 18.0 L
O2 Delivery Level
Microbiology
04/16/25 19:55 Blood/Venous Blood Culture - Preliminary
Klebsiella pneumoniae group
04/16/25 19:55 Blood/Venous Gram Stain - Preliminary
--- NOTE | 2025-04-17 09:10 | W.PN.CARDCBS ---
Today's Communication / Plan
-
Resume IV amiodarone for rate control of A-fib
Continue heparin gtt to reduce the risk of cardioembolic stroke
Impression / Plan
-
PCP: Mallory Medeiros
Mural Artist: None prior to admission, initial consultation Dr. Posada
Impression:
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
S/p ex lap, sigmoidectomy, takedown of splenic flexure, flexible sigmoidoscopy 04/10/2025
Postoperative paroxysmal atrial fibrillation x2 with spontaneous conversion to SR
Septic shock
Mild to mod by echo 04/2025
COPD
Hypertension
Mild dementia
Mild hypothyroidism
Echo 04/13/2025: EF 60%. Mild LVH. Mild to moderate with peak/mean gradient 32/18 mmHg, mild AR. PAP 47 mmHg. Findings similar to prior echo in April 2024
Echocardiogram 04/21/2024: Ejection fraction 60 to 65%, mild aortic stenosis with mean gradient of 16 mmHg, mild AI, PA systolic 56 mmHg
Recommendations:
-Developed post-op AFib following elective admission for diverticular stricture on colonoscopy/SBO s/p ex lap, sigmoidectomy, takedown of splenic flexure, flexible sigmoidoscopy 04/10/2025
-Clinically worsened and transferred to ICU for treatment of presumed septic shock. Currently requiring vasopressin and norepinephrine for pressor support.
-Continues to have paroxysms of AFib on review of telemetry
-Unable to use BB or CCB due to hypotension
-Would resume IV amio for rate control of AFib
-Cont heparin for risk reduction of cardioemoblic CVA
-Suspect also with acute CHF and will need eventual diuresis. proBNP 3740, weight is up and O2 requirements increased overnight
-Would hold off on diuretics for now given marginal BP
CCT 33 minutes
History of Present Illness 04/12/2025:
Ms. Rodríguez is a very pleasant 84-year-old female who is status post sigmoid colon resection with takedown after small bowel obstruction and colonic stricture. It appears that we were consulted in 2014 for bronchitis x 1 and also an echocardiogram
in the system read by Dr. Maurice in 2023 demonstrating mild aortic stenosis peak mean gradient 30/16. She examines to a midsystolic murmur without blunted S2 and tolerated her procedure well. She is taking p.o.'s although overnight did have
atrial fibrillation with rapid ventricular response which was relatively asymptomatic and is currently seen in sinus rhythm on an IV Cardizem drip with stable vital signs. Normal ejection fraction was noted in 2023
Progress Note - Mural Artist
Subjective
Date of Service: April 17, 2025
Patient clinically worsened yesterday with hypotension and was transferred to ICU for higher level of care. Currently on Levophed and vasopressin. Made DNR/DNI yesterday. She is resting in the ICU on BiPAP. Lethargic, tracking but not active.
Objective
Labs:
04/17/25 03:23
04/17/25 03:23
Labs
Hgb 10.4 g/dL (12.0-16.0) L 04/17/25 03:23
Hct 34.1 % (37.0-47.0) L 04/17/25 03:23
Plt Count 251 10^3/uL (130-400) 04/17/25 03:23
PT 17.5 Sec (11.4-14.6) H 04/16/25 13:35
INR 1.38 04/16/25 13:35
APTT 79.5 Sec (23.4-35.0) H 04/17/25 06:10
Sodium 135 mmol/L (135-145) 04/17/25 03:23
Potassium 5.3 mmol/L (3.5-5.1) H 04/17/25 03:23
BUN 37 mg/dl (7-17) H 04/17/25 03:23
Creatinine 2.1 mg/dL (0.6-1.0) H 04/17/25 03:23
Glucose 94 mg/dl (70-99) 04/17/25 03:23
Troponins
04/16/25
16:45
Troponin I 0.020
Vital Signs and I&O:
Vital Signs
Temp Pulse Resp BP Pulse Ox
97.2 F 107 16 119/68 96
04/17/25 06:00 04/17/25 07:39 04/17/25 07:39 04/17/25 04:00 04/17/25 07:39
Vital Signs
Temp Pulse Resp BP Pulse Ox
97.2 F 107 16 119/68 96
04/17/25 06:00 04/17/25 07:39 04/17/25 07:39 04/17/25 04:00 04/17/25 07:39
Intake & Output
04/15/25 04/16/25 04/17/25 04/18/25
06:59 06:59 06:59 06:59
Intake Total 897 / 897 1515 / 1515 3128.7 / 3128.7
Output Total 500 / 500 485 / 485
Balance 397 / 397 1515 / 1515 2643.7 / 2643.7
Physical Exam
Physical Exam
Gen: NAD, awake, lethargic
HEENT: NC/AT, sclera anicteric
CV: irregularly irregular
Lungs: No increased WOB on bipap
Abd: S/ND
Ext: +peripheral edema
Skin: Warm, dry
Neuro: Non-focal
--- NOTE | 2025-04-17 09:23 | W.CON.NEPH ---
Addendum entered and electronically signed by Pablito Fernandez MD 04/17/25 15:01:
I agree with the resident's note with the addendum
84-year-old female with COPD on chronic nasal cannula, idiopathic pulmonary fibrosis, hypertension controlled on a multidrug regimen, hypothyroidism on Synthroid therapy which has been stable. She underwent colonoscopy recently and developed
ongoing cramping with diarrhea and came to [facility]. CT imaging showed sigmoid colon abnormality and she underwent exploratory laparotomy on April 10. Course was complicated by paroxysmal atrial fibrillation. There is also concern
for either ileus or small bowel obstruction on a follow-up CT with IV contrast. She then became hypotensive requiring pressors and ICU admission. Creatinine then began to rise, now up to 2.1. We are asked to assist with management of her renal
issues. She is critically ill in the ICU
Patient is sedated. Sclera were anicteric. Hearing was normal, ears and nose are intact. Oropharynx was clear. Neck was supple with trachea midline and no thyromegaly. Heart was regular rate and rhythm without rubs. Lower extremities without
edema. Lungs were clear to auscultation bilaterally and with normal excursion. Abdomen was soft, nontender, with normal active bowel sounds, and no hepatosplenomegaly. Skin was without rash and with normal turgor.
Laboratory values were reviewed including past values for past creatinine baseline.
Chest Xray today 04/17/2025 by my reading shows bilateral pulmonary fibrosis decreased lung volumes cardiomegaly.
Assessment
MAHENDRA on CKD likely multifactorial in the setting of contrast exposure, sepsis
Septic shock requiring pressors
Hyperkalemia
Non-anion gap metabolic acidosis
New A-fib with RVR
Severe sigmoid stenosis s/p exploratory laparotomy
Small bowel dilation due to ileus versus early SBO
Idiopathic pulmonary fibrosis
COPD on chronic 2 L
Mild dementia
Plan
MAHENDRA most likely related to contrast nephropathy at this time. Her pressures have been well-controlled rapidly since development of hypotension.
Follow LFTs for any sign of shock liver though I doubt that this will have transpired
Follow BMP creatinine appears to be getting better
Maintain mean arterial pressure greater than 65
She does not appear to be overtly volume overloaded at this time and I would hold on any diuretics currently.
Wean pressors as allowed
Critical care time spent 35 minutes
Original Note:
Consultation
-
Date/Time Consultation Requested: 04/17/2025 08:44
Date/Time Consultation Performed: 04/17/2025 09:15
Requesting Provider: Dr Krishan Snider
Performing Provider: Dr Pablito Fenrandez
Reason for Consultation: MAHENDRA
Medical History
-
Chief Complaint: MAHENDRA
History of Present Illness:
This is an 84-year-old female with past medical history of diverticulitis, COPD on chronic 2 L nasal cannula, idiopathic pulmonary fibrosis, mild cognitive impairment who presented to [facility] ED 04/09 for complaints of ongoing abdominal
cramping with diarrhea 1 day after undergoing a colonoscopy. On colonoscopy she was noted to have a benign intrinsic sigmoid stenosis/stricture at 30 cm from anal verge. On presentation CT showed apparent wall thickening involving the proximal
sigmoid colon which was related to reported mass/stricture. She was taken to the OR 04/10/2025 for exploratory laparotomy and sigmoidectomy. Postop, patient developed paroxysmal atrial fibrillation with spontaneous conversion to NSR. On 04/15,
patient with recurrent nausea and vomiting again. CT this time showed dilation of small bowel loops without discrete transition point concerning for ileus versus early SBO. In addition, she developed A-fib with RVR again. Unfortunately she became
hypotensive, started on pressors and transferred to the ICU due to increasing pressor requirements.
Throughout course of hospital stay, creatinine was rising, 2.1 today with baseline 0.7. eGFR 22.52. Electrolytes with sodium 135, potassium 5.3, CO2 18, chloride 109, BUN 37. We are consulted to manage patient's new MAHENDRA
Past Medical History
PMHx; Chronic cough, IPF, restrictive lung disease, stage Ia carcinoma of left breast (2013) s/p lumpectomy, osteoarthritis, hypothyroidism, history of diverticulitis, hypertension, osteoporosis, GERD, Hx of left THR S. lugdenesis treated with
chronic antibiotics, history of pinkeye (03/26/2021)
PSHx: Cholecystectomy, total hysterectomy, left breast lumpectomy with sentinel lymph node biopsy (09/23/2013), left CEE (2014), lower back surgery (08/2017), right ring finger surgery, Mohs surgery of left nostril with graft
Social History
Tobacco: Former Smoker (Quit >40 years ago)
Alcohol: None
Drug: None
Family History
Family History: Not Pertinent
Allergies / Home Medications
Allergy/AdvReac Type Severity Reaction Status Date / Time
gage Allergy ROSES-Seasonal' Verified 04/09/25 18:49
watery
eyes,sore
throat,
sneezing ,
itching.
grass pollen Allergy Seasonal' Verified 04/09/25 18:49
watery
eyes,sore
throat,
sneezing ,
itching.
house dust Allergy Seasonal' Verified 04/09/25 18:49
watery
eyes,sore
throat,
sneezing ,
itching.
mold Allergy Seasonal' Verified 04/09/25 18:49
watery
eyes,sore
throat,
sneezing ,
itching.
tree and shrub pollen Allergy Seasonal' Verified 04/09/25 18:49
watery
eyes,sore
throat,
sneezing ,
itching.
�Medication �Instructions �Recorded �Confirmed �Type
albuterol sulfate 90 mcg/actuation 2 puff inhalation PRN PRN sob 11/23/14 04/09/25 History
aerosol inhaler
amlodipine 10 mg-valsartan 320 mg 1 tab PO DAILY Blood Pressure 11/23/14 04/09/25 History
tablet (Exforge)
fluticasone propionate 50 2 spray intranasal DAILY 11/23/14 04/09/25 History
mcg/actuation nasal Lung/Breathing Issues
spray,suspension
cholecalciferol (vitamin D3) 25 1,000 unit PO DAILY Supplement 02/24/15 04/09/25 History
mcg (1,000 unit) capsule (Vitamin
D3)
acetaminophen 325 mg tablet 650 mg (2 x 325 mg) PO Q4HPRN PRN 03/28/15 04/09/25 Rx
pain ##0
Advair Diskus 1 inh inhalation BID AT 0800,1600 04/09/25 04/09/25 History
Lung/Breathing Issues
levothyroxine 100 mcg tablet 100 mcg PO DAILY Thyroid 04/09/25 04/09/25 History
oxycodone 5 mg tablet 5 mg PO BIDPRN PRN mod pain 04/09/25 04/09/25 History
Review of Systems
-
All other systems: Negative unless noted (Except as documented in HPI)
Physical Exam
Vital Signs
Vital Signs
Temp Pulse Resp BP Pulse Ox
97.7 F 107 16 119/68 96
04/17/25 07:00 04/17/25 07:39 04/17/25 07:39 04/17/25 04:00 04/17/25 07:39
Lab Results
WBC 18.9 10^3/uL (4.8-10.8) H 04/17/25 03:23
RBC 3.68 10^6/uL (4.20-5.40) L 04/17/25 03:23
Hgb 10.4 g/dL (12.0-16.0) L 04/17/25 03:23
Hct 34.1 % (37.0-47.0) L 04/17/25 03:23
Plt Count 251 10^3/uL (130-400) 04/17/25 03:23
Sodium 135 mmol/L (135-145) 04/17/25 03:23
Potassium 5.3 mmol/L (3.5-5.1) H 04/17/25 03:23
Chloride 109 mmol/L (98-107) H 04/17/25 03:23
Carbon Dioxide 18 mmol/L (22-30) L 04/17/25 03:23
BUN 37 mg/dl (7-17) H 04/17/25 03:23
Creatinine 2.1 mg/dL (0.6-1.0) H 04/17/25 03:23
eGFR 22.52 04/17/25 03:23
Glucose 94 mg/dl (70-99) 04/17/25 03:23
Calcium 7.8 mg/dl (8.4-10.2) L 04/17/25 03:23
Phosphorus 6.5 mg/dl (2.5-4.5) H 04/17/25 03:23
Rak-P-Tbtarhvnpab Pept 3740 pg/ml 04/15/25 08:32
Albumin 2.3 g/dl (3.5-5.0) L 04/16/25 16:44
Physical Exam
General: Awake and Other (No acute distress on BiPAP)
HEENT: PERRL
Respiratory: Other (Rales bilaterally)
Cardiac: S1/S2 and Other (Irregularly irregular)
Abdomen: Soft and Nontender
Genito-urinary: Other (Longoria with yellow urine)
Musculoskeletal: Edema
Assessment/Plan
-
Assessment
MAHENDRA on CKD likely multifactorial in the setting of contrast exposure, sepsis
Septic shock requiring pressors
Hyperkalemia
Non-anion gap metabolic acidosis
New A-fib with RVR
Severe sigmoid stenosis s/p exploratory laparotomy
Small bowel dilation due to ileus versus early SBO
Idiopathic pulmonary fibrosis
COPD on chronic 2 L
Mild dementia
Plan
Daily BMP,
Hypotension, continue pressors to maintain MAP > 65
Avoid nephrotoxic meds, contrast exposure
IV Amio for rate control
Monitor urine output
Holding off diuretics at this time although weight trending up, proBNP 3740 suspect acute HFpEF
Daily weights, I's and O's
[2025-04-17 09:28] LABS: Glycohemoglobin (HgbA1c) 5.2 % (4.0-5.6)
--- NOTE | 2025-04-17 09:57 | PTCARENOTE ---
pt wakes to name. nods head to questions. nods yes to pain. pain med given as ordered. chg bath done. oral care done. pt on bipap 07/10 with 5lnc. pt pulling at mask and moving face to slip mask off. mitts on pt and pct in room as sitter.
heparin,amio,vaso,levo gtt running as ordered. titrating levo down as ordered. midline abd inc with stp honing machine operator tool cdi. cardenas care done. afib seen on monitor.
[2025-04-17 12:23] LABS: B.E. -6.9 mmol/L; HCO3 19.7 mmol/L (21-28); O2 Saturation % 99.0 % (94-98); PCO2 43 mmHg (32-35); PO2 107 mmHg (83-108)
[2025-04-17 12:35] LABS: APTT 70.1 Sec (23.4-35.0)
--- NOTE | 2025-04-17 12:58 | PTCARENOTE ---
pt resting. mitts removed.
--- NOTE | 2025-04-17 13:58 | W.PN.CRS1 ---
Today's Communication / Plan
-
maintain bipap
zosyn
npo
supportive care
Assessment/Plan
-
84-year-old female with PMH of COPD, interstitial pulmonary fibrosis, mild cognitive impairment, hypothyroidism, HTN, aortic stenosis, depression, GERD, HLD, breast cancer, diverticulitis who was found to have diverticular stricture on colonoscopy
performed 03/08/2025 by my partner, Dr. Lares, who presented to the ED on 03/09 with symptomatic diverticular stricture associated with abdominal pain and diarrhea.
04/16- rapid response, afib, hypotensive, tachypneic, transferred to ICU and started on Levophed, x-ray showed bibasilar atelectasis, started on IV antibiotics, Levophed started
POD 7 ex lap, sigmoidectomy, takedown of splenic flexure, flexible sigmoidoscopy
WBC 18.6 (17.2), hemoglobin 10.7 (10.4), Creatinine 2.1 (baseline 0.7)
- Dr. Lares spoke with patient regarding if she would want any further surgery. The patient mouthed and nodded her head 'no'.
� Continue n.p.o. IV fluids
- Longoria for I's and O's. Appreciate nephrology.
� Pain control with Tylenol and Toradol, oxycodone as needed
� Continue DVT PPx with Lovenox
� OOB/IS
� Appreciate cardiology/hospitalist/production director
- Continue Zosyn IV
- BiPAP per production director
- Wean pressors as able
- I spoke with Dea Jose, her POA
Subjective Data
Procedure
04/10/2025- ex lap, sigmoidectomy, takedown of splenic flexure, flexible sigmoidoscopy
Subjective Data
Date of Service: April 17, 2025
Patient with a BiPAP in place. Her eyes were closed. She is taking deep breaths. She is able to nod yes or no but does not open her eyes.
Objective Data
-
Vital Signs
Temp Pulse Resp BP Pulse Ox
97.9 F 114 21 104/48 97
04/17/25 10:45 04/17/25 12:40 04/17/25 12:40 04/17/25 12:00 04/17/25 12:40
Intake & Output
04/16/25 04/17/25 04/18/25
06:59 06:59 06:59
Intake Total 1515 / 1515 3128.7 / 3203.2 375.6 / 375.6
Output Total 485 / 535 155 / 155
Balance 1515 / 1515 2643.7 / 2668.2 220.6 / 220.6
Intake:
Oral fluids 240 / 240
IV fluids (Total) 1100 / 1100 2828.7 / 2903.2 375.6 / 375.6
0.9nss bolus 510 / 510
Amodarone 233.8 / 250.5 100.2 / 100.2
D5/0.9% Sodium Chloride 1,000 800 / 800
ml @ 100 mls/hr IV .Q10H AMINA Rx
#:[id number]
Heparin 111 / 120 54 / 54
Norepinephrine 1173.9 / 1222.7 221.4 / 221.4
IV piggybacks 175 / 175 300 / 300
Output:
Urine, Longoria 485 / 535 155 / 155
Other:
How many times incontinent 2
SATURATED amount urine
Number of immeasurable emeses? 1
Lab Results
04/17/25 03:23
Physical Exam
-
General: Other
Abdomen: Soft, Non Distended and Tender (Mild around incisions, mildly distended, midline incision with anat with no drainage)
Skin: Warm and Dry
Wound: No Signs of Infection
Incision: Clear, Dry, Intact
--- NOTE | 2025-04-17 14:07 | CM ---
S/P explor lap, et al, developed ileus, septic shock and aspiration pneumonia. Transferred to ICU. IV/Zosyn aand IV/Vasopressin. From [facility]. Discharge POC: TBD. Previous therapy recommendation was SNF on 04/12. Referrals previously
forwarded. [facility] did not have beds. Check again closer to discharge.
--- NOTE | 2025-04-17 15:22 | W.PN.HOSP.TC ---
Today's Communication/Plan
-
wean pressors as able
continue IV Amio
IV abx
IV Heparin
BIPAP
CT C/A/P
prognosis guarded
Assessment / Plan
Assessment / Plan
Assessment:
Acute diarrheal illness with volume depletion likely secondary to Sigmoid colon stricture causing partial SBO
Severe stenosis sigmoid colon with Moderate stool rectosigmoid colon on colonoscopy 04/08/2025
Diverticulitis Hx
- CT: wall thickening involving the proximal sigmoid colon which may be related to reported mass/stricture. fluid present throughout the colon as well as mild distention of the cecum/ascending colon.
- CRS following; s/p ex-lap with sigmoidectomy, DEVYN, splenic flexure takedown 04/10/25
- recurrent nausea 04/14 into 04/15, repeat CT with dilated loops of bowel concerning for ileus
- f/u AXR: Re-demonstration of multiple dilated small bowel loops, overall similar appearance compared to the prior CT suggestive of an ileus. Small bowel contrast seen within distal colon
- now with development of shock/bacteremia, repeat CT today
- CRS following
New onset MAHENDRA
Acute hyperkalemia
- likely in setting of ileus, hypotension, shock, contrast injury
- bladder scans/SC protocol
- Nephrology following
Septic Shock
Klebsiella bacteremia
- sources could be aspiration pneumonia vs other
- CT C/A/P
- Empiric IV Zosyn
- wean pressors as able
Recurrent parox A.fib/flutter
- s/p Cardizem drip; drip held now to hypotension
- IV amiodarone now added
- Cardio following
- IV heparin drip - requires intensive monitoring. [id number] score of 4 for age, female, HTN
- Echo 04/13/2025: EF 60%. Mild LVH. Mild to moderate with peak/mean gradient 32/18 mmHg, mild AR. PAP 47 mmHg. Findings similar to prior echo in April 2024
Chronic CHF
- diuresis when able
Acute on Chronic Hypoxic Insufficiency/Respiratory Failure
COPD baseline on chronic 2 L nasal cannula at bedtime and with ambulation
Former smoker quit age 33
Idiopathic pulmonary fibrosis
- hold inhalers, Singulair
- currently on BiPAP
- ICU X:ray: SEVERE CHRONIC INFLAMMATORY INTERSTITIAL PNEUMONITIS
- pulm following
Hypokalemia
Hypocalcemia
- monitor and replete as necessary.
Metabolic Acidosis Resolved
- low dose bicarb PO supplementation completed
Osteoarthritis on chronic Oral opiates
- cont pain control as per surgeon, recent surgery as above, scheduled Toradol Tylenol prn oxycodone Dilaudid
Osteoporosis
Spondylosis lumbar sacral spine
- Patient is on Prolia every 6 months
- Continue vitamin D
Hypothyroidism
- continue levothyroxine 100 mcg daily
HTN
- continue amlodipine 10 mg daily, valsartan 320 mg daily with hold parameters
- continue Coreg with hold parameters
Chronic mild cognitive impairment
- Oriented to name, place, president, history is somewhat forgetful short-term
Nonrheumatic aortic valve stenosis
Depression
- No reported meds
Balance disorder
Chronic bilateral lower extremity edema
- PT/OT evals- SNF recommended
Reported hx GERD
- no current meds
Reported hx HLD
- No current meds
History of left-sided breast cancer 2022 was on former letrozole
Reported hx Overactive bladder
- no current meds
DVT prophylaxis: IV heparin
Code: Full
Total Critical Care Time 37 minutes. I was immediately available to the patient and staff. I personally examined, reviewed labs, diagnostic images/reports, interpretations, treatment plans, discussed patient care with other providers and family
or caregivers (if patient is unable to make decisions), entered orders as appropriate and documented the medical record.
Anticipated Discharge: > 48 hours
Subjective/Interval History
-
Date of Service: April 17, 2025
on BiPAP
remains on pressors
Objective Data
-
Labs:
Laboratory Results
04/17/25 04/17/25 04/17/25
03:23 06:10 12:12
WBC 18.9 H
Hgb 10.4 L
Hct 34.1 L
Plt Count 251
APTT 79.5 H 70.1 H
HCO3 18.0 L 19.7 L
Sodium 135
Potassium 5.3 H
Chloride 109 H
Carbon Dioxide 18 L
BUN 37 H
Creatinine 2.1 H
Glucose 94
Calcium 7.8 L
04/17/25 04/17/25 04/17/25
16:00 18:00 18:30
WBC
Hgb
Hct
Plt Count
APTT Pending
HCO3 Pending
Sodium Pending
Potassium Pending
Chloride Pending
Carbon Dioxide Pending
BUN Pending
Creatinine Pending
Glucose Pending
Calcium Pending
Vital Signs:
Vital Signs
Temp Pulse Resp BP Pulse Ox
98.3 F 73 27 104/48 98
04/17/25 15:15 04/17/25 15:00 04/17/25 15:00 04/17/25 12:00 04/17/25 15:02
I&O
04/16/25 04/17/25 04/18/25
06:59 06:59 06:59
Intake Total 1515 / 1515 3128.7 / 3203.2 544.7 / 544.7
Output Total 485 / 535 230 / 230
Balance 1515 / 1515 2643.7 / 2668.2 314.7 / 314.7
Physical Exam
-
General: Respiratory Distress (on BiPAP)
HEENT: Normocephalic and Atraumatic
Respiratory: Decreased Breath Sounds
Cardiac: Regular Rhythm and S1/S2
Neuro: Awake
Psych: Calm
Data Reviewed
-
Critical Care Time (in minutes): 37
Labs: Labs Reviewed by me
[2025-04-17 16:57] LABS: Blood Urea Nitrogen 43 mg/dl (7-17); Calcium 8.5 mg/dl (8.4-10.2); Carbon Dioxide 21 mmol/L (22-30); Chloride 109 mmol/L (98-107); Glucose 74 mg/dl (70-99); Potassium 5.3 mmol/L (3.5-5.1); Sodium 136 mmol/L (135-145)
[2025-04-17 17:14] LABS: Estimated Creatinine Clearance 21 ml/min; eGFR 29.02
[2025-04-17 18:00] LABS: B.E. -6.7 mmol/L; HCO3 20.6 mmol/L (21-28); O2 Saturation % 100.0 % (94-98); PCO2 48 mmHg (32-35); PO2 137 mmHg (83-108)
[2025-04-17 18:12] LABS: APTT 82.4 Sec (23.4-35.0)
[2025-04-17] MEDS: HEPARIN 25000 UNITS/250 ML IV (18:40)
[2025-04-17] MEDS: CORDARONE 518 MG IV (20:29)
--- NOTE | 2025-04-17 20:58 | PTCARENOTE ---
Pt received at19:00, Ox3, drowsy but easily arousable to verbal stimuli. Minimal verbal response with poor/soft vocal quality. Nods y/n appropriately, able to make needs known. Generalized weakness. SR with PVCs 70s-80s, converts in and out of afib
in the 110s. Weak but palpable pulses. +2 generalized edema. 5L NC, pulse ox 94% and above, breath sounds diminished t/o. Bipap-hs. Hypoactive bowel sounds, abdomen tender. Longoria in place, approximately 20ml/hr of cloudy amanda urine. Sacral foam
remains intact, midline abdominal incision with anat--well approximated. Safe environment maintained, call wright within reach, pt repositioned.
--- NOTE | 2025-04-17 21:07 | W.PN.UPDATE ---
Update Note
Progress Note Update
I was informed that the CT scan that was ordered shows evidence of enteric contrast layering in the pelvis, consistent with anastomotic leak. I had a lengthy discussion with the patient regarding options moving forward. I explained that this leak
is unlikely to improve on its own and would require surgery for correction with ostomy creation. This is extremely important to due her being in septic shock, to which the leak is contributing. I explained that surgery in this setting is risky.
Risks include, but are not limited to, risks of organ failure, prolonged intubation, further clinical decline and . However, no surgery in this situation would be even more risky as this leak is unlikely to heal on its own and will continue to
leak bacteria in the belly, worsening the sepsis and clinical decline, ultimately resulting in . After explaining this, the patient expressed understanding and stated clearly that she does not want surgery and acknowledged the ramifications of
this decision. Although she is currently quite sick, I do feel that she has the capacity to make this decision based on her responses and questions. I further explained options to continue maximal medical therapy versus transitioning to comfort
measures. If we switch to comfort measures, the medications supporting her heart would be removed and she would likely , but we would make her comfortable. She indicated she would like to continue maximal medical therapy for now. She requested
that I update Tyree and Dea, who are serving as her medical proxies.
I spoke with Tyree and Dea and updated them on the above. They expressed appreciation. They stated that they are going on an international trip starting tomorrow evening. They did inform the patient of this. As long as they have service, they
are happy to continue to serve as her medical proxy. However, after 3 PM tomorrow, their daughter will plan to take their place for help with decision making for the patient. Her name and number are Mary Woodward, cell [phone]
[2025-04-18] VITALS (9 sets, daily range): BP systolic 100–132; BP diastolic 46–72; PULSE 2–72; BMI 27.5
[2025-04-18 00:17] LABS: APTT 66.9 Sec (23.4-35.0)
[2025-04-18] MEDS: PITRESSIN 100 IV (00:34)
[2025-04-18] MEDS: ZOSYN 50 IV ×2 (00:35→06:56)
[2025-04-18] MEDS: DILAUDID 0.25 MG IV (01:17)
[2025-04-18 04:05] LABS: B.E. -5.6 mmol/L; HCO3 20.7 mmol/L (21-28); O2 Saturation % 99.3 % (94-98); PCO2 43 mmHg (32-35); PO2 99 mmHg (83-108)
[2025-04-18 04:53] LABS: Hematocrit 30.9 % (37.0-47.0); Hemoglobin 10.0 g/dL (12.0-16.0); Mean Corp Hgb Conc. 32.4 g/dL (33.0-37.0); Mean Corpuscular Volume 89.8 fL (81.0-99.0); Platelet Count 197 10^3/uL (130-400); Red Cell Dist. Width 15.1 % (11.5-14.5)
[2025-04-18 05:03] LABS: Blood Urea Nitrogen 48 mg/dl (7-17); Calcium 8.0 mg/dl (8.4-10.2); Carbon Dioxide 21 mmol/L (22-30); Chloride 111 mmol/L (98-107); Estimated Creatinine Clearance 21 ml/min; Glucose 71 mg/dl (70-99); Magnesium 1.9 mg/dl (1.6-2.3); Potassium 5.0 mmol/L (3.5-5.1); Sodium 136 mmol/L (135-145); eGFR 29.02
[2025-04-18 07:24] LABS: APTT 86.8 Sec (23.4-35.0)
--- NOTE | 2025-04-18 07:24 | PTCARENOTE ---
vital signs filed for previous shift from [id number].
[2025-04-18] MEDS: NON-FORMULARY ITEM INH (07:39)
--- NOTE | 2025-04-18 08:15 | W.PN.INTV ---
Today's Communication / Plan
Recommendations
Patient being transitioned to comfort care
Stop all medications/drips unless tailored for comfort
Stop blood draws/fingersticks/frequent vital signs
Emotional support provided
[employer] services offered
Okay with comfort feeds if patient wants to eat --> this may lead to increased abdominal pain, in which case pain medications need to be given
Given that patient is being transitioned to comfort care, Clinical Documentation Improvement Specialist service will sign off. Please call back with any questions or concerns
Assessment
-
Assessment: 84-year-old female with a past medical history of IPF, chronic cough, stage I left-sided breast cancer, hypothyroidism, history of diverticulitis, GERD, and hypertension who presented with painful loose bowel movements. She had a
colonoscopy 2 days prior to the symptoms, which was performed on 04/08/[address] Lares with surgery. Preparation of the colon was poor and there was a benign-appearing intrinsic severe stenotic area measuring unknown length in the sigmoid colon at
30 cm from the verge and it was not traversed. She has chronic diverticular disease with bowel wall thickening seen on imaging: Back to at least August 2018. She had followed with surgery in the office with last visit with Dr. Lares on
03/23/2025. Patient had a repeat CT abdomen/pelvis on 04/2025 showing wall thickening around the proximal sigmoid colon which may be related to a mass/stricture with fluid throughout the colon and distention of the cecum/ascending colon. Patient
was initially admitted to [facility] with colorectal surgery consulted. Initial labs showed potassium 3.4, creatinine 0.8, WBC 9.5, and she had a C. difficile stool study that was negative unless mentioned above, as was her stool culture that was sent
on 04/09. Considering patient had continued abdominal cramping/discomfort with frequent loose stools, reduced appetite and nausea, she was consented for surgical intervention and on 04/10/2025 she had an exploratory laparotomy with lysis of adhesions,
sigmoidectomy, takedown of the splenic flexure and repair of serosal injury with a TAP block. EBL was 100 cc, and intraoperative findings showed a thickened and chronically inflamed sigmoid colon which was densely adherent to the left pelvic
sidewall. Of note, there was an incorrect needle count during this case. Postoperatively, she developed atrial flutter on 04/12 and spontaneously converted back to sinus rhythm. Patient was continued on IV fluids given low oral intake. On 04/14, she
had episode of vomiting with a liquid bowel movement and passing very little flatus. CT abdomen/pelvis was repeated on 04/15 showing dilation of the small bowel loops with no discrete transition point, concerning for ileus versus early SBO. Decision
made to keep her NPO and not insert NGT. Patient then developed another episode of A-fib with RVR on 04/15 although remained asymptomatic with no palpitations. Cardizem drip was started and she converted back into sinus rhythm. Amiodarone was
started on 04/16/2025 by cardiology to maintain NSR. She unfortunately then became hypotensive and her BP meds (Coreg, losartan and Norvasc) were held and she was transferred to IMU for vasopressors. Levophed requirements continued to increase and
she was transferred here to the ICU and marble cutter services consulted for additional management/recommendations.
Chronic conditions CLINICAL OPERATIONS CONSULTANT: Chronic cough, IPF, restrictive lung disease, stage Ia carcinoma of left breast (2013) s/p lumpectomy, osteoarthritis, hypothyroidism, history of diverticulitis, hypertension, osteoporosis, GERD, Hx of left THR S. lugdenesis
treated with chronic antibiotics, history of pinkeye (03/26/2021)
Impression:
#Circulatory shock with concern for sepsis
#Acute hypercapnic respiratory failure with CO2 narcosis
#A-fib with RVR (patient has no prior history of this before this current hospitalization)
#Severe sigmoid stenosis s/p ex lap with lysis of adhesions, sigmoidectomy, takedown of splenic flexure and repair of serosal injury with TAP block (OR date: 04/10/2025) - path of rectosigmoid showed acute diverticulitis with pericolonic abscess
formation and viable resection margins
#Small bowel dilatation due to ileus vs early SBO (per CT abdomen/pelvis on 04/15/2025 due to abdominal distention + episode of vomiting)
#Anemia
#MAHENDRA
#Hypoglycemia
#IPF on Ofev
#Restrictive lung disease due to IPF
#Former tobacco smoker (quit >40 years ago)
Plan:
- Patient was weaned off vasopressin overnight and was down to 2 mcg/min of Levophed earlier this morning
- CT chest/abdomen/pelvis performed last night showed a suspected anastomotic leak with extraluminal contrast in the pelvis/presacral space
- Nonoperative management is unlikely to lead to source control
- General Surgery aware and discussed this with the patient and patient is not interested in surgery
- Patient and POA this morning discussed with the hospitalist and she is now transitioned to comfort care
- I confirmed this with the patient and answered all her questions
- Emotional support provided
- Stop all medications unless tailored for comfort
- Stop blood draws/cultures/frequent vital signs/fingersticks
- Okay for comfort feeds if patient wants to eat
- Stop vasopressors and stop amiodarone gtt
- Stop heparin gtt
- [employer] services offered
Code status: DNR/DNI
Given that patient is now being transitioned to comfort care, Clinical Documentation Improvement Specialist service will now sign off. Please call back with any questions or concerns
Total time spent today was 43 minutes for this encounter. Time includes reviewing laboratory test/imaging results, reviewing pertinent medical records, obtaining and reviewing medical history, performing an appropriate exam, ordering medications,
tests and procedures. Time also includes documentation of this encounter, coordinating patient care and communicating with other healthcare professionals. Total time does not include separately billed tests performed on this date of service.
Subjective Dataa
Subjective Data
Date of Service:
Date of Service: April 18, 2025
Chief Complaint: Clinical Documentation Improvement Specialist Follow Up
Subjective:
Patient seen and evaluated this morning. CT chest, abdomen, pelvis yesterday showed suspected anastomotic leak with extraluminal contrast in the pelvis/presacral space with prior partial colectomy seen. Colorectal surgery aware and discussed this
with the patient and nonoperative management is unlikely to provide source control.
As of today, options including continued medical treatment versus transition to comfort care were discussed with the patient and POA, and patient is now being transitioned to comfort care.
When I saw the patient she was resting in bed in no acute distress. She is much more awake today compared to yesterday, and in no acute distress. She mainly wants something to drink. She denies shortness of breath, chest pain, fevers or chills
Review of Systems
General: Other (Negative unless mentioned above)
Objective Data
Data Reviewed
Vital Signs / I&O / Oxygen:
Vital Signs
Temp Pulse Resp BP Pulse Ox
96.9 F L 114 34 105/46 96
04/18/25 07:23 04/18/25 08:20 04/18/25 08:20 04/18/25 08:00 04/18/25 08:20
Intake and Output
04/17/25 04/18/25 04/19/25
06:59 06:59 06:59
Intake Total 3128.7 / 3203.2 1234.8 / 1270.0 70.4 / 70.4
Output Total 485 / 535 740 / 775 75 / 75
Balance 2643.7 / 2668.2 494.8 / 495.0 -4.6 / -4.6
SaO2 96
Nasal Cannula flow liters per 5
minute
Physical Exam
General: Respiratory Distress (negative), Comfortable, Chills (negative) and Sweats (negative)
HEENT: Normocephalic and Anicteric
Cardiovascular: S1-S2 and Peripheral Edema (negative)
Respiratory: Wheeze (negative), Crackles (Bilaterally/Velcro-like), Rhonchi (negative) and Non-Labored Respirations
GI: Soft, Non Distended, Non Tender and Normal Bowel Sounds
Neurology: Awake, Alert and Tremors (negative)
Skin: Warm, Dry, Cyanosis (negative) and Jaundice (negative)
Labs/Micro/Reports
Lab Data
04/18/25 03:58
04/18/25 03:58
Laboratory Results
04/17/25 04/17/25 04/17/25
17:51 23:50
APTT 70.1 H 82.4 H 66.9 H
pH 7.27 L 7.24 L
pCO2 43 H 48 H
pO2 107 137 H
HCO3 19.7 L 20.6 L
O2 Delivery Level
04/18/25 04/18/25
03:58 06:56
APTT 86.8 H
pH 7.29 L
pCO2 43 H
pO2 99
HCO3 20.7 L
O2 Delivery Level
Microbiology
04/16/25 19:47 Blood/Venous Blood Culture - Preliminary
No Growth in 24 hours- Final report to follow
04/16/25 19:55 Blood/Venous Blood Culture - Preliminary
Klebsiella pneumoniae group
04/16/25 19:55 Blood/Venous Gram Stain - Preliminary
[2025-04-18] MEDS: NSS (PRESERVATIVE FREE) 10 ML IV (08:22)
[2025-04-18] MEDS: PROTONIX IV 40 MG IV (08:22)
[2025-04-18] MEDS: VITAMIN D3 (cholecalciferol) PO (08:22)
--- NOTE | 2025-04-18 08:25 | PTCARENOTE ---
Rec'd pt at 0700. Pt drowsy on bipap, awakens to verbal stimuli. Orientedx3, follows commands with gen weakness. Monitor Afib, intermittently in NSR. Amio gtts 0.5mg/min, Heparin gtts 1100units/hr. Left radial a-line in place. Levo gtts for SBP
>90. Gen edema, arms weeping serous fluid. Lungs dim, pt placed on 5LNC by resp therapist. Abdomen with midline incision DANI, anat intact. Longoria draining yellow urine. spoke with pt about plan of care, awaiting POA to come in.
--- NOTE | 2025-04-18 09:38 | W.PN.GS2 ---
Today's Communication / Plan
-
`
Assessment / Plan
-
Assessment: 84 yo female POD#8 s/p ex lap with sigmoidectomy christina and takedown of sigmoid flexure
CT imaging completed yesterday unfortunately confirming the presence of postoperative anastomotic leak at colorectal anastomosis with pooling of contrast in pelvis posteriorly.
Dr. Duke discussed these findings with patient and I also confirmed with her this a.m. that she is aware of imaging results.
Similar to Dr. Duke's discussions with patient I advised her that nonoperative management is unlikely to provide adequate source control and presumably she will pass away from subsequent progressive sepsis
Surgical treatment option would entail re-laparotomy, takedown of anastomosis and creation of a permanent end colostomy. This would require reintubation and presumed need for postoperative mechanical ventilation.
Given invasiveness and risks associated with this procedure and patient's underlying medical comorbidities as well as advanced age patient advises that she continues to not want any further surgical intervention as she advised Dr. Duke last evening
as well.
Plan: current medical care with comfort measures
Probable transition to hospice care
Subjective Data
-
Date of Service: April 18, 2025
Patient seen and examined.
She is awake alert and oriented this a.m., somnolent but responsive and conversive.
Confirmed with patient that she is aware of presence of postoperative anastomotic leak.
We discussed the treatment options and she also confirms her desire for medical care/comfort measures and no reoperative surgery
Objective Data
-
Intake and Output
04/17/25 04/18/25 04/19/25
06:59 06:59 06:59
Intake Total 3128.7 / 3203.2 1234.8 / 1270.0 70.4 / 70.4
Output Total 485 / 535 740 / 775 75 / 75
Balance 2643.7 / 2668.2 494.8 / 495.0 -4.6 / -4.6
Intake:
IV fluids (Total) 2828.7 / 2903.2 1234.8 / 1270.0 70.4 / 70.4
0.9nss bolus 510 / 510
Amodarone 233.8 / 250.5 400.8 / 417.5 33.4 / 33.4
D5/0.9% Sodium Chloride 1,000 800 / 800
ml @ 100 mls/hr IV .Q10H AMINA Rx
#:[id number]
Heparin 111 / 120 236 / 247 22 / 22
Norepinephrine 1173.9 / 1222.7 514.0 / 521.5 15.0 / 15.0
vasopressin 84 / 84
IV piggybacks 300 / 300
Output:
Urine, Longoria 485 / 535 740 / 775 75 / 75
Vital Signs
Temp Pulse Resp BP Pulse Ox
96.9 F L 114 34 105/46 96
04/18/25 07:23 04/18/25 08:20 04/18/25 08:20 04/18/25 08:00 04/18/25 08:20
Lab Results
04/18/25 03:58
04/18/25 03:58
Calcium 8.0 mg/dl (8.4-10.2) L 04/18/25 03:58
Phosphorus 6.5 mg/dl (2.5-4.5) H 04/17/25 03:23
Magnesium 1.9 mg/dl (1.6-2.3) 04/18/25 03:58
Total Bilirubin 0.7 mg/dl (0.2-1.3) 04/16/25 16:44
AST 34 U/L (14-36) 04/16/25 16:44
ALT 28 U/L (0-35) 04/16/25 16:44
Alkaline Phosphatase 82 U/L (38-126) 04/16/25 16:44
Total Protein 4.3 g/dl (6.3-8.2) L 04/16/25 16:44
Albumin 2.3 g/dl (3.5-5.0) L 04/16/25 16:44
Physical Exam
-
AAO x 3 acutely ill-appearing
ABD: generally distended, tenderness to palpation with rebound and guarding
--- NOTE | 2025-04-18 09:42 | W.PN.NEPH.PH ---
Today's Communication / Plan
-
lasix
Assessment/Plan
-
Assessment
MAHENDRA on CKD likely multifactorial in the setting of contrast exposure, sepsis
Septic shock requiring pressors
Hyperkalemia
Non-anion gap metabolic acidosis
New A-fib with RVR
Severe sigmoid stenosis s/p exploratory laparotomy
Small bowel dilation due to ileus versus early SBO
Idiopathic pulmonary fibrosis
COPD on chronic 2 L
Mild dementia
Plan
follow BMP
continue pressors to maintain MAP > 65
lasix today
hospice decision
critical care time 31 minutes
-
-
Date of Service: April 18, 2025
CC / HPI / ROS
-
Chief Complaint:
MAHENDRA
History of Present Illness:
MAHENDRA/Cr down to 1.7
BP stable but on pressors
critically ill in ICU
nonoliguric
Review of Systems:
no CP
some abdominal pain, mild SOB
Labs
-
Labs:
WBC 11.8 10^3/uL (4.8-10.8) H 04/18/25 03:58
RBC 3.44 10^6/uL (4.20-5.40) L 04/18/25 03:58
Hgb 10.0 g/dL (12.0-16.0) L 04/18/25 03:58
Hct 30.9 % (37.0-47.0) L 04/18/25 03:58
Plt Count 197 10^3/uL (130-400) D 04/18/25 03:58
Sodium 136 mmol/L (135-145) 04/18/25 03:58
Potassium 5.0 mmol/L (3.5-5.1) 04/18/25 03:58
Chloride 111 mmol/L (98-107) H 04/18/25 03:58
Carbon Dioxide 21 mmol/L (22-30) L 04/18/25 03:58
BUN 48 mg/dl (7-17) H 04/18/25 03:58
Creatinine 1.7 mg/dL (0.6-1.0) H 04/18/25 03:58
eGFR 29.02 04/18/25 03:58
Glucose 71 mg/dl (70-99) 04/18/25 03:58
Calcium 8.0 mg/dl (8.4-10.2) L 04/18/25 03:58
Phosphorus 6.5 mg/dl (2.5-4.5) H 04/17/25 03:23
Nya-U-Fmoivyxtuxk Pept 3740 pg/ml 04/15/25 08:32
Albumin 2.3 g/dl (3.5-5.0) L 04/16/25 16:44
Physical Exam
-
Vital Signs:
Vital Signs
Temp Pulse Resp BP Pulse Ox
96.9 F L 114 34 105/46 96
04/18/25 07:23 04/18/25 08:20 04/18/25 08:20 04/18/25 08:00 04/18/25 08:20
Cardiovascular:: Regular rate and rhythm
Respiratory:: Bilateral: Coarse
Lung Excursion:: Normal
Abdomen:: Soft and Tender
Bowel Sounds:: Decreased
Extremity Edema:: +2: Bilateral:
[2025-04-18] MEDS: LASIX 40 MG IV (09:58)
--- NOTE | 2025-04-18 10:38 | W.PN.HOSP.TC ---
Addendum entered and electronically signed by Krishan Snider MD 04/21/25 12:18:
chronic HFpEF
Original Note:
Today's Communication/Plan
-
initiate comfort measures
Assessment / Plan
Assessment / Plan
Assessment:
Acute diarrheal illness with volume depletion likely secondary to Sigmoid colon stricture causing partial SBO
Severe stenosis sigmoid colon with Moderate stool rectosigmoid colon on colonoscopy 04/08/2025
Diverticulitis Hx
- CT: wall thickening involving the proximal sigmoid colon which may be related to reported mass/stricture. fluid present throughout the colon as well as mild distention of the cecum/ascending colon.
- CRS following; s/p ex-lap with sigmoidectomy, DEVYN, splenic flexure takedown 04/10/25
- recurrent nausea 04/14 into 04/15, repeat CT with dilated loops of bowel concerning for ileus
- f/u AXR: Re-demonstration of multiple dilated small bowel loops, overall similar appearance compared to the prior CT suggestive of an ileus. Small bowel contrast seen within distal colon
- now with development of shock/bacteremia, repeat CT showing anastomosis leak with extraluminal contrast in the pelvis/presacral space
- CRS following
New onset MAHENDRA
Acute hyperkalemia
- likely in setting of ileus, hypotension, shock, contrast injury
- bladder scans/SC protocol
- Nephrology following
Septic Shock
Klebsiella bacteremia
- sources could be aspiration pneumonia vs other
- CT C/A/P
- Empiric IV Zosyn
- wean pressors as able
Recurrent parox A.fib/flutter
- s/p Cardizem drip; drip held now to hypotension
- IV amiodarone now added
- Cardio following
- IV heparin drip - requires intensive monitoring. [id number] score of 4 for age, female, HTN
- Echo 04/13/2025: EF 60%. Mild LVH. Mild to moderate with peak/mean gradient 32/18 mmHg, mild AR. PAP 47 mmHg. Findings similar to prior echo in April 2024
Chronic CHF
- diuresis when able
Acute on Chronic Hypoxic Insufficiency/Respiratory Failure
COPD baseline on chronic 2 L nasal cannula at bedtime and with ambulation
Former smoker quit age 33
Idiopathic pulmonary fibrosis
- hold inhalers, Singulair
- currently on BiPAP
- ICU X:ray: SEVERE CHRONIC INFLAMMATORY INTERSTITIAL PNEUMONITIS
- pulm following
Hypokalemia
Hypocalcemia
- monitor and replete as necessary.
Metabolic Acidosis Resolved
- low dose bicarb PO supplementation completed
Osteoarthritis on chronic Oral opiates
- cont pain control as per surgeon, recent surgery as above, scheduled Toradol Tylenol prn oxycodone Dilaudid
Osteoporosis
Spondylosis lumbar sacral spine
- Patient is on Prolia every 6 months
- Continue vitamin D
Hypothyroidism
- continue levothyroxine 100 mcg daily
HTN
- continue amlodipine 10 mg daily, valsartan 320 mg daily with hold parameters
- continue Coreg with hold parameters
Chronic mild cognitive impairment
- Oriented to name, place, president, history is somewhat forgetful short-term
Nonrheumatic aortic valve stenosis
Depression
- No reported meds
Balance disorder
Chronic bilateral lower extremity edema
- PT/OT evals- SNF recommended
Reported hx GERD
- no current meds
Reported hx HLD
- No current meds
History of left-sided breast cancer 2022 was on former letrozole
Reported hx Overactive bladder
- no current meds
DVT prophylaxis: IV heparin
Code: Full
Total Critical Care Time 45 minutes. I was immediately available to the patient and staff. I personally examined, reviewed labs, diagnostic images/reports, interpretations, treatment plans, discussed patient care with other providers and family
or caregivers (if patient is unable to make decisions), entered orders as appropriate and documented the medical record.
Goals of care discussion (>45 minutes): d/w POA MR. Garcia and patient, explained high risk nature of further surgery. She declines. Explains terminal state of persistent anastamosis leak and ongoing sepsis/shock that would be resolve on antibiotics
alone. They express understanding. They have opted for comfort measures. RN aware.
Anticipated Discharge: Within 24 hours
Subjective/Interval History
-
Date of Service: April 18, [address] leak [address]; patient and POA aware, opting against surgery, explained comfort measures and both in total agreement.
Objective Data
-
Labs:
Laboratory Results
04/17/25 04/18/25 04/18/25
23:50 03:58 06:56
WBC 11.8 H
Hgb 10.0 L
Hct 30.9 L
Plt Count 197 D
APTT 66.9 H 86.8 H
HCO3 20.7 L
Sodium 136
Potassium 5.0
Chloride 111 H
Carbon Dioxide 21 L
BUN 48 H
Creatinine 1.7 H
Glucose 71
Calcium 8.0 L
04/18/25
13:00
WBC
Hgb
Hct
Plt Count
APTT Pending
HCO3
Sodium
Potassium
Chloride
Carbon Dioxide
BUN
Creatinine
Glucose
Calcium
Vital Signs:
Vital Signs
Temp Pulse Resp BP Pulse Ox
96.9 F L 114 34 105/46 96
04/18/25 07:23 04/18/25 08:20 04/18/25 08:20 04/18/25 08:00 04/18/25 08:20
I&O
04/17/25 04/18/25 04/19/25
06:59 06:59 06:59
Intake Total 3128.7 / 3203.2 1234.8 / 1270.0 133.4 / 133.4
Output Total 485 / 535 740 / 775 125 / 125
Balance 2643.7 / 2668.2 494.8 / 495.0 8.4 / 8.4
Physical Exam
-
General: Respiratory Distress
HEENT: Normocephalic and Atraumatic
Cardiac: Regular Rhythm and S1/S2
GI: Tender
Neuro: AO x 3
Psych: Calm
Data Reviewed
-
Critical Care Time (in minutes): 45
Labs: Labs Reviewed by me
[2025-04-18] MEDS: MORPHINE SULFATE 2 MG IV ×3 (11:12→21:37)
--- NOTE | 2025-04-18 12:00 | PTCARENOTE ---
POA in to visit, Dr. Snider notified and in to speak with pt and POA. Decision for comfort care made. PRN Morphine given, IV infusions dc'd. A-line removed. Mouth swabbed for comfort. Medsurg/comfort LOC.
--- NOTE | 2025-04-18 14:25 | TRANSFER ---
Pt transferred to [address] [place] [address] via bed, belongings with pt.
[2025-04-18] MEDS: FLUSH (NSS) 2 FLUSH IV ×2 (19:27→21:37)
--- NOTE | 2025-04-18 23:53 | W.PN.DEATH ---
Pronouncement of
-
Called to see patient to pronounce.
No spontaneous heart tones or respirations noted.
Patient not responsive to verbal stimuli.
Patient is pronounced .
Time of : 23:30
Date of : 04/18/25
Cause of : Circulatory shock, acute hypercapnic respiratory failure, atrial fibrillation, severe sigmoid stenosis
Family Notified: Yes (Called & spoke with Mary Adrianna(daughter of Eric Garcia, patient's POA))
--- NOTE | 2025-04-19 01:46 | PTCARENOTE ---
Mary and Klever came to see patient and to get her personal things. Ella specified she will take her earrings and glasses and other miscellaneous personal items.
--- NOTE | 2025-04-19 09:02 | CM ---
Patient 04/18/25 @ 23:30.
== END 2025-04-18 23:30 | disposition expired | DRG 329 ==
LOC: 2 NORTH 19:26
PROVIDERS: Clinical Nurse Specialist Family Health; Nurse Practitioner Family; Nurse Practitioner Primary Care; Physician Assistant; Surgery; ADMITTING PHYSICIAN Hospitalist; ATTENDING PHYSICIAN Internal Medicine; CONSULT PHYSICIAN Internal Medicine Cardiovascular Disease; CONSULT PHYSICIAN Internal Medicine Critical Care Medicine; CONSULT PHYSICIAN Specialist; CONSULT PHYSICIAN Surgery; EMERGENCY PHYSICIAN Emergency Medicine; FAMILY PHYSICIAN Internal Medicine
PROC: 0DJD8ZZ Inspection of Lower Intestinal Tract, Via Natural or Artificial Opening Endoscopic (ICD-10-PCS; 2025-04-10)
PROC: 0DTN0ZZ Resection of Sigmoid Colon, Open Approach (ICD-10-PCS; 2025-04-10)
PROC: 0DQH0ZZ Repair Cecum, Open Approach (ICD-10-PCS; 2025-04-10)
PROC: 0DNN0ZZ Release Sigmoid Colon, Open Approach (ICD-10-PCS; 2025-04-10)
PROC: 02HV33Z Insertion of Infusion Device into Superior Vena Cava, Percutaneous Approach (ICD-10-PCS; 2025-04-16)
PROC: 03HY32Z Insertion of Monitoring Device into Upper Artery, Percutaneous Approach (ICD-10-PCS; 2025-04-16)
DX: K56.690 Other partial intestinal obstruction (principal); A41.59 Other Gram-negative sepsis; J69.0 Pneumonitis due to inhalation of food and vomit; R65.21 Severe sepsis with septic shock; J96.21 Acute and chronic respiratory failure with hypoxia; J96.22 Acute and chronic respiratory failure with hypercapnia; K57.32 Diverticulitis of large intestine without perforation or abscess without bleeding; F03.A3 Unspecified dementia, mild, with mood disturbance; K91.71 Accidental puncture and laceration of a digestive system organ or structure during a digestive system procedure; I48.92 Unspecified atrial flutter; N17.9 Acute kidney failure, unspecified; E87.20 Acidosis, unspecified; K91.89 Other postprocedural complications and disorders of digestive system; I50.32 Chronic diastolic (congestive) heart failure; K56.7 Ileus, unspecified; I48.0 Paroxysmal atrial fibrillation; Z51.5 Encounter for palliative care; Z66 Do not resuscitate; D64.9 Anemia, unspecified; E16.2 Hypoglycemia, unspecified; E87.5 Hyperkalemia; N14.11 Contrast-induced nephropathy; T50.8X5A Adverse effect of diagnostic agents, initial encounter; Y83.2 Surgical operation with anastomosis, bypass or graft as the cause of abnormal reaction of the patient, or of later complication, without mention of misadventure at the time of the procedure; E83.51 Hypocalcemia; J84.112 Idiopathic pulmonary fibrosis; E03.9 Hypothyroidism, unspecified; J44.9 Chronic obstructive pulmonary disease, unspecified; E87.6 Hypokalemia; E86.0 Dehydration; Y83.8 Other surgical procedures as the cause of abnormal reaction of the patient, or of later complication, without mention of misadventure at the time of the procedure; I35.0 Nonrheumatic aortic (valve) stenosis; K66.0 Peritoneal adhesions (postprocedural) (postinfection); J98.4 Other disorders of lung; K21.9 Gastro-esophageal reflux disease without esophagitis; F32.A Depression, unspecified; N32.81 Overactive bladder; M81.0 Age-related osteoporosis without current pathological fracture; M47.817 Spondylosis without myelopathy or radiculopathy, lumbosacral region; E78.00 Pure hypercholesterolemia, unspecified; I11.0 Hypertensive heart disease with heart failure; M19.90 Unspecified osteoarthritis, unspecified site; Z85.3 Personal history of malignant neoplasm of breast; Z87.891 Personal history of nicotine dependence; Z99.81 Dependence on supplemental oxygen; Z79.891 Long term (current) use of opiate analgesic
CPT/HCPCS: 71045; 71250; 74018; 74019; 74176; 74177; 76000; 80048; 80053; 81003; 81015; 82330; 82805; 82962; 83036; 83605; 83690; 83735; 83880; 84100; 84132; 84302; 84443; 84484; 85025; 85027; 85610; 85730; 86850; 86900; 86901; 87040; 87045; 87046; 87070; 87077; 87086; 87154; 87186; 87205; 87324; 87427; 87449; 87798; 88307; 93005; 93306; 93308; 93321; 93325; 94640; 94660; 96361; 96365; 97116; 97129; 97162; 97167; 97535; 99285; C1776; J1335; P9045; Q9967